=== PATIENT | male | born 1945 | race Caucasian/White ===

== ENCOUNTER 2017-12-20 13:12 | Outpatient (CLI) ==
--- NOTE | 2017-12-20 14:07 | US ---
EXAM: Ultrasound bilateral carotid duplex. HISTORY: Dizziness. COMPARISON: 03/20/2010. TECHNIQUE: Multiple welsh scale and color Doppler images were obtained. FINDINGS: Please note that estimates of internal carotid artery stenoses are based upon NASCET crite marie. Right carotid: Calcified plaquing without 50% or greater stenosis. Peak systolic velocity measureme nt in the right internal carotid artery is 1.1 meters per second. Right internal to common carotid a rtery peak systolic velocity ratio measures 1.2. End diastolic velocity measurement in the right int ernal carotid artery is 0.3 meters per second. Flow in the right vertebral artery is antegrade. Left carotid: Calcified plaquing without 50% or greater stenosis. Peak systolic velocity measuremen t in the left internal carotid artery is 1.0 meters per second. Left internal to common carotid danica ry peak systolic velocity ratio measures 1.1. End diastolic velocity measurement in the left interna l carotid artery measures 0.2 meters per second. Flow in the left vertebral artery is antegrade. IMPRESSION: 1. No evidence for 50% or greater stenosis in the right or left internal carotid artery. 2. Antegrade flow in both vertebral arteries.
--- NOTE | 2017-12-20 14:15 | CT ---
EXAM: CT head without contrast. HISTORY: Dizziness. COMPARISON: None available. TECHNIQUE: Multiple axial images of the brain were obtained from the skull base through the vertex w ithout intravenous contrast. Multiplanar reformats were provided. FINDINGS: There is no intracranial hemorrhage or extraaxial collection. The welsh-white differentiat ion is maintained without evidence for acute large vascular territory infarction. There are areas of periventricular and subcortical white matter low attenuation. The cortical sulci and cerebral ventr icles are symmetrically enlarged. The basal cisterns are well visualized. There is no hydrocephalus , mass effect, or midline shift. Polyp or retention cyst noted in the right maxillary sinus. Some l obular mucosal thickening in the inferior left maxillary sinus is incompletely imaged. Otherwise, th e paranasal sinuses and mastoid air cells are clear. The calvarium is intact. There is a small meta llic foreign object in the soft tissues of the forehead on axial image 7. Atherosclerotic calcificati ons noted. IMPRESSION: 1. No acute intracranial abnormality. 2. Chronic small vessel ischemic changes and atrophy.
== END 2017-12-20 13:13 | disposition home or self-care (01) ==
LOC: RAD 13:12
PROVIDERS: ATTEND Internal Medicine
DX: R42 Dizziness and giddiness (principal)

== ENCOUNTER 2018-10-28 08:47 | Outpatient (CLI) ==
--- NOTE | 2018-10-28 15:32 | DI ---
EXAM: Chest two views HISTORY: Cough, sarcoma COMPARISON: 01/10/2009 TECHNIQUE: Two views of the chest were performed FINDINGS: No airspace consolidation. Small nodular opacity right lung base measures 7 mm. Suture l ine left lower lung. There is no pleural effusion or pneumothorax. The heart is normal in size. Th e mediastinal contour is unchanged, noting atherosclerosis. There are no acute abnormalities of the bones. IMPRESSION: 1. No acute cardiopulmonary process. 2. Unexpected finding: Small nodular opacity right lung base measures 7 mm. This could represent a pulmonary nodule or possibly a nipple shadow. Recommend correlation with CT or chest PA and lateral chest radiographs with nipple markers.
== END 2018-10-28 08:48 | disposition home or self-care (01) ==
LOC: CAR 08:47
PROVIDERS: ATTEND Internal Medicine
DX: R05 Cough (principal); R06.02 Shortness of breath; Z85.9 Personal history of malignant neoplasm, unspecified

== ENCOUNTER 2018-11-07 07:41 | Outpatient (CLI) ==
--- NOTE | 2018-11-07 08:40 | CT ---
EXAM: CT chest with contrast HISTORY: Abnormal chest radiograph COMPARISON: Radiograph chest 10/28/2018 TECHNIQUE: CT chest performed with intravenous contrast. Coronal and sagittal reformatted images ob tained. FINDINGS: The thyroid and thoracic inlet appear normal. Heart normal in size. No pericardial effus ion. Coronary calcifications. Aorta normal in caliber. Mild atherosclerosis. Small to moderate hi atal hernia. No lymphadenopathy identified in the chest. Visualized portion upper abdomen demonstra gerri no and the acute abnormality. No acute abnormalities of the bones. Degenerative change in the s pine. Central airway. Central airway patent. No airspace consolidation. No pleural effusion. No pneumothorax. Linear scarring in the left upper lobe. Additional scattered subsegmental atelectasis and/or scarring. 6 mm pulmonary nodule right middle lobe image 44. 5 mm perifissural nodule right lung image 36. IMPRESSION: 1. Two right lung nodules measuring up to [address] chest follow-up in 6 months. 2. Mild subsegmental atelectasis and/or scarring. No airspace consolidation. 3. Small to moderate hiatal hernia.
== END 2018-11-07 07:42 | disposition home or self-care (01) ==
LOC: RAD 07:41
PROVIDERS: ATTEND Internal Medicine
DX: R91.8 Other nonspecific abnormal finding of lung field (principal)

== ENCOUNTER 2023-01-05 21:45 | Inpatient (IN) ==
[~2023-01-05 21:45] MED LIST: LEVAQUIN 750 MG/150 ML D5W 750 MG/150 ML BAG IV SCH
--- NOTE | 2023-01-05 22:07 | ED.PDOC ---
General ED Provider: Dr. CHRISTIN BARR MD Chief Complaint: Weakness Stated Complaint: states that patient's been weak the past 4 days associated with fever and chills progressive generalized weakness, diagnosed with a urinary tract infection primary care provider as outpatient stay. Patient denies cough, dyspnea, chest pain, abdominal pain, nausea, vomiting, diarrhea. states that patient had very poor oral intake the past 48 hours. Spouse states that patient's had fever throughout the day. Time Seen by Provider: 01/05/23 22:03 Mode of Arrival: Ambulance Information Source: Patient Exam Limitations: Clinical condition Primary Care Provider: JOSE ANGEL FRANZ MD Nursing and Triage Documentation Reviewed and Agree: Yes Does patient meet sepsis criteria?: Yes If yes, has appropriate treatment been initiated?: Yes System Inflammatory Response Syndrome: Temp 101F or Greater and Pulse >90 BPM Sepsis Protocol: For patient's 13 years and over: Temp is 96.8 and below OR 101 and greater Pulse >90 BPM Resp >20/minute Acutely Altered Mental Status Are patient's symptoms suggestive of a new infection, such as: -Pneumonia -Skin, Soft Tissue -Endocarditis -UTI -Bone, Joint Infection -Implantable Device -Acute Abdominal Infection -Wound Infection -Meningitis -Blood Stream Catheter Infection -Unknown Neurological Complaint Exam Weakness Complaint/Exam Last Known Well: 4 days ago Onset: Gradual Duration: gradually patient became weak and lethargic treated for yesterday for UTI Symptoms Are: Still present Timing: Constant Episodes Lasting: Days Initial Severity: Moderate Current Severity: Moderate Cardiac Risk Factors: Reports None CVA Risk Factors: Reports None Related Surgical History: Reports None JVD Present: No Carotid Bruit Present: No Rectal Heme Positive: No Review of Systems Review Of Systems Constitutional: Reports Chills, Fever, Malaise and Weakness Eyes: Reports No symptoms Ears, Nose, Mouth, Throat: Reports No symptoms Cardiac: Reports No symptoms GI: Reports No symptoms : Reports No symptoms Musculoskeletal: Reports No symptoms Skin: Reports No symptoms Neurological: Reports Weakness (Generalized weakness) Endocrine: Reports No symptoms Hematologic/Lymphatic: Reports No symptoms All Other Systems: Reviewed and Negative [facility]LY [facility] Medical History Metastatic lung carcinoma C78.00 - Secondary malignant neoplasm of unspecified lung (ICD-10) 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, unspecified (ICD- 10) Status post fall Z91.81 - History of falling (ICD-10) Family History FATHER Cardiac abnormality Mother Cancer Social History Smoking and tobacco status: Former smoker Tobacco: How many years used: 45 Second hand smoke exposure: No Alcohol intake: never Substance use type: does not use Special russ needs: No Agree to transfusion: Yes Adopted: No Caregiver/support person: No Foster care: No Household members: spouse Housing: house Marital status: M Lives independently: Yes Daycare: no daycare Number of children: 2 service: Yes status: retired branch: [employer] half-way: No Current occupational status: retired Pets and animals: No History of recent travel: No Sexually active: No Do you think of yourself as: straight/heterosexual Current gender identity: male Seatbelt use: always Helmet use: Yes Drives intoxicated or rides with intoxicated motor vehicle escort driver: No Water heater temperature set < 120 degrees: Yes Working smoke detector in home: Yes Fire extinguisher in home: Yes Carbon monoxide detector in home: Yes Firearms in home: No Surgical History H/O cataract removal with insertion of prosthetic lens Z98.49 - Cataract extraction status, unspecified eye (ICD-10) Z96.1 - Presence of intraocular lens (ICD-10) Physical Exam Physical Exam Appearance: Reports Ill-appearing, No pain distress and Thin Ill-appearing: Moderate Pain Distress: Moderate Eyes: Reports KAMARI, EOMI and Conjunctiva clear; Denies Conjunctiva inflammed ENT: Reports Nose normal and TMs Occluded Neck: Supple Respiratory: Reports Airway patent, Breath sounds clear and Breath sounds equal; Denies Breath sounds diminished Cardiovascular: Reports RRR, Pulses normal, No rub and Tachycardia; Denies Irregular rhythm GI/: Reports Nontender, No masses, Bowel sounds normal and No Organomegaly Musculoskeletal: Reports Normal strength, ROM intact, No edema, No calf tenderness, Limited ROM and Limited strength; Denies Edema Skin: Reports Warm and Normal color Neurological: Reports Sensation intact, Motor intact, Reflexes intact and Other (Patient appears lethargic) Psychiatric: Reports Affect appropriate Interpretation Radiology Interpretation Radiology Interpretation By: Radiologist Radiology Results: Positive Exam Interpreted: Portable CXR Xray Comments: Minimal left basilar atelectasis and or pneumonia Project Inspector Time of Project Inspector Interpretation: 22:10 Rate: Normal and Tachy Rhythm: Sinus Ectopy: None EKG Interpretation Time of EKG #1: 02:30 Rate: Normal and Tachy Rhythm: Sinus Ectopy: None [place]: NL ST Segment: Other Interpretation: Sinus tachycardia 101, nonspecific ST changes with changes inferior lateral Re-Evaluation Re-Evaluation Time of Re-Evaluation: 23:55 Status: Improved Vital Signs Stable: Yes Pain Level: Patient mental status has improved after hydration of 2 L normal saline. Appearance: NAD Neuro: Alert and Oriented X3 CV: RRR Physician Notification Case Discussed Physician Notified: Discussed with Dr. Staci Franz at 0117 for referral to the hospitalist for obs Time of Notification: 01:17 Comments: Discussed patient complaints laboratory data and emergency room course. Physician Notified: Discussed with hospitalist Deborah at 0120 observation Time of Notification: 01:20 Critical Care Note Critical Care Note Total Critical Care Time (mins): 20 Course Course 01/05/23 22:30 01/05/23 22:30 Orders, Labs, Meds: Lab Review 01/05/23 01/05/23 01/05/23 22:30 23:00 23:35 WBC 5.05 RBC 4.41 L Hgb 14.1 Hct 42.2 MCV 95.7 H MCH 32.0 H MCHC 33.4 RDW Coeff of Mague 12.9 Plt Count 191 Immature Gran % (Auto) 0.2 Neut % (Auto) 90.3 H Lymph % (Auto) 5.7 L Travis % (Auto) 3.6 Eos % (Auto) 0.2 Baso % (Auto) 0.0 Neut # (Auto) 4.6 Lymph # (Auto) 0.3 L Travis # (Auto) 0.2 L Eos # (Auto) 0.0 Baso # (Auto) 0.0 Immature Gran # (Auto) 0.0 PT 10.1 INR 0.97 APTT 28.5 Puncture Site Base Excess O2 Saturation ABG pH ABG pCO2 ABG pO2 ABG HCO3 ABG Total CO2 Olman Test Hemoglobin Oxyhemoglobin Carboxyhemoglobin Total Hemoglobin FiO2 % Sodium 135.9 Potassium 3.37 L Chloride 102.4 Carbon Dioxide 24.8 Anion Gap 12.07 BUN 22.4 H Creatinine 1.66 H Estimated GFR (MDRD) 40.00 BUN/Creatinine Ratio 13.49 Glucose 121.2 H Lactic Acid 0.97 Calcium 8.56 Magnesium 2.09 Total Bilirubin 0.50 AST 51.7 ALT 34.4 Alkaline Phosphatase 92.1 Troponin I < 0.012 Total Protein 7.64 Albumin 4.47 Globulin 3.17 Albumin/Globulin Ratio 1.41 Amylase 57.4 Lipase 77.0 Urine Color Yellow Urine Clarity Clear Urine pH 6.0 Ur Specific [place] 1.025 Urine Protein 2+ H Urine Glucose (UA) 1+ H Urine Ketones Negative Urine Blood 3+ H Urine Nitrite Negative Urine Bilirubin Negative Urine Urobilinogen 0.2 Ur Leukocyte Esterase Negative Urine Microscopic RBC 2-5 Ur Squamous Epith Cells Not Reportable Urine Bacteria 1+ Granular Casts 2-5 Influ A Molecular Assay Influ B Molecular Assay SARS CoV-2 RNA Rapid ARVIND 01/06/23 01/06/23 00:18 00:35 WBC RBC Hgb Hct MCV MCH MCHC RDW Coeff of Mague Plt Count Immature Gran % (Auto) Neut % (Auto) Lymph % (Auto) Travis % (Auto) Eos % (Auto) Baso % (Auto) Neut # (Auto) Lymph # (Auto) Travis # (Auto) Eos # (Auto) Baso # (Auto) Immature Gran # (Auto) PT INR APTT Puncture Site Pos Base Excess -2.5 L O2 Saturation 94.8 ABG pH 7.45 ABG pCO2 31.0 L ABG pO2 71.0 L ABG HCO3 21.5 ABG Total CO2 22.5 Olman Test Good Hemoglobin 1.6 H Oxyhemoglobin 93.9 L Carboxyhemoglobin 1.3 Total Hemoglobin 12.6 FiO2 % 21.0 Sodium Potassium Chloride Carbon Dioxide Anion Gap BUN Creatinine Estimated GFR (MDRD) BUN/Creatinine Ratio Glucose Lactic Acid Calcium Magnesium Total Bilirubin AST ALT Alkaline Phosphatase Troponin I Total Protein Albumin Globulin Albumin/Globulin Ratio Amylase Lipase Urine Color Urine Clarity Urine pH Ur Specific [place] Urine Protein Urine Glucose (UA) Urine Ketones Urine Blood Urine Nitrite Urine Bilirubin Urine Urobilinogen Ur Leukocyte Esterase Urine Microscopic RBC Ur Squamous Epith Cells Urine Bacteria Granular Casts Influ A Molecular Assay Negative by naat Influ B Molecular Assay Negative by naat SARS CoV-2 RNA Rapid ARVIND Negative Orders Category Date Time Status ABG DRAW REQUEST Stat CARDIO 01/05/23 22:07 Completed IV [ED IV/MEDIPORT/POWERPORT] .ONCE EMERGENCY 01/05/23 22:09 Active ABG COOX Stat LAB 01/05/23 22:06 Completed AMYLASE Stat LAB 01/05/23 22:30 Completed BLOOD CULTURE (ED ONLY) Stat LAB 01/05/23 22:50 Received CBC W/ AUTO DIFF Stat LAB 01/05/23 22:30 Completed CMP [COMPREHENSIVE METABOLIC PANEL] Stat LAB 01/05/23 22:30 Completed COVID [SARS COV-2 RNA RAPID ARVIND] Stat LAB 01/06/23 00:35 Completed FLU A & B MOLECULAR [FLU A/B MOLECULAR] Stat LAB 01/06/23 00:35 Completed LACTIC ACID Stat LAB 01/05/23 23:35 Completed LIPASE Stat LAB 01/05/23 22:30 Completed MAGNESIUM Stat LAB 01/05/23 22:30 Completed PT WITH INR Stat LAB 01/05/23 22:30 Completed PTT [PARTIAL THROMBOPLASTIN TIME] Stat LAB 01/05/23 22:30 Completed TROPONIN I Stat LAB 01/05/23 22:30 Completed URINALYSIS C & S IF INDICATED Stat LAB 01/05/23 23:00 Completed URINE CULTURE Stat LAB 01/05/23 23:00 Received 0.9 % Sodium Chloride [Saline Flush] Meds 01/05/23 22:09 Active 1 syr IVF PRN PRN Ibuprofen [Motrin] Meds 01/05/23 22:06 Discontinued 600 mg PO ONCE STA Levofloxacin/D5w [Levaquin 500 mg/100 ml D5w] Meds 01/05/23 23:15 Discontinued 500 mg in 100 ml IV ONCE Sodium Chloride 0.9% [Sodium Chloride] 1,000 ml Meds 01/05/23 22:09 Discontinued IV BOLUS Sodium Chloride 0.9% [Sodium Chloride] 1,000 ml Meds 01/05/23 23:19 D iscontinued IV BOLUS CHEST, 1V AP ONLY Stat RADS 01/05/23 22:[address] HEAD W/O CONTRAST Stat RADS 01/05/23 22:06 Completed Medications Generic Name Dose Route Start Last Admin Trade Name Freq PRN Reason Stop Dose Admin Sodium Chloride 1 syr 01/05/23 22:09 0.9% Sodium Chloride 10 Ml Disp.Syrin IVF PRN PRN To flush IV Discontinued Medications Generic Name Dose Route Start Last Admin Trade Name Freq PRN Reason Stop Dose Admin Sodium Chloride 1,000 mls @ 1,000 mls/hr 01/05/23 22:09 01/05/23 22:27 Sodium Chloride IV 01/05/23 23:08 1,000 mls/hr BOLUS STA Administration Levofloxacin/Dextrose 500 mg in 100 mls @ 100 mls/hr 01/05/23 23:15 01/05/23 23:18 Levaquin 500 Mg/100 Ml D5w IV 01/06/23 00:14 100 mls/hr ONCE ONE Administration Sodium Chloride 1,000 mls @ 1,000 mls/hr 01/05/23 23:19 01/05/23 23:21 Sodium Chloride IV 01/06/23 00:18 1,000 mls/hr BOLUS STA Administration Ibuprofen 600 mg 01/05/23 22:06 01/05/23 22:28 Ibuprofen 600 Mg Tablet PO 01/05/23 22:07 600 mg ONCE STA Administration Vital Signs: Temp Pulse Resp BP Pulse Ox 01/06/23 00:51 91 18 142/78 H 95 01/05/23 23:26 100.6 F H 106 H 16 105/69 94 L 01/05/23 21:48 100.7 F H 119 H 19 144/98 H 95 Discharge Plan Discharge Patient Disposition: PLACED OBSERVATION Discharge Problem: Acute dehydration, Pneumonia Did you review [place] [employer] DEVELOPER for ALL controlled substances?: Not Applicable ED Provider: CHRISTIN BARR Condition: Stable Physician Progress Note: MDM History obtained from the spouse and the patient. states that patient's been weak the past 4 days associated with fever and chills progressive generalized weakness, diagnosed with a urinary tract infection primary care provider as outpatient stay. Patient denies cough, dyspnea, chest pain, abdominal pain, nausea, vomiting, diarrhea. Patient placed on sepsis protocol IV fluids 84 kilogram /30 mL normal saline liter bolus every hour x2 of the 2 sets of blood cultures Levaquin 5 mg IV piggyback. All laboratory data reviewed and are within normal limits CBC white blood count of 5000, hemoglobin 14.1, BMP is normal limits, GFR 40, lipase 77 amylase 57, troponin is 0.012. Lactic acid 0.97 the arterial blood gas on room air for normal limits pH 7.45 saturation 94% Patient taken off the sepsis protocol after 2 L of IV fluids. Patient became much more alert after IV hydration. Portable chest x-ray is consistent with minimal left basilar atelectasis and or pneumonia. Head CT scan without intravenous contrast [FINDINGS: Helically acquired axial images were obtained from skull base to the convexities without contrast utilizing 5-mm collimation. Sagittal and coronal reconstructions were imaged and reviewed. The ventricles and CSF spaces are prominent compatible with age appropriate atrophy. There is periventricular hypodensity noted, compatible chronic microvascular disease. No acute intracranial findings . There is a small retention cyst right maxillary sinus. Mastoid air cells are clear. The calvarium is intact. Atherosclerotic changes are seen involving cavernous internal carotid arteries. IMPRESSION: No acute intracranial finding Differential diagnosis 1) pneumonia 2) dehydration Discussed with Dr. Staci Franz at 0117 referral to the hospitalist for observation Discussed with hospitalist Deborah at 0124 observation
[2023-01-05] MEDS ORDERED: SODIUM CHLORIDE 1,000 ML IV STA ×2 (22:09→23:19)
[2023-01-05] MEDS: MOTRIN PO STA ×2 (22:24→22:28)
[2023-01-05 22:40] LABS: EOSINOPHILS % (AUTO) 0.2 % (0.0-7.0); HEMATOCRIT 42.2 % (42.0-52.0); HEMOGLOBIN 14.1 g/dl (14.0-18.0); IMMATURE GRANULOCYTE % (AUTO) 0.2 % (0.0-5.0); LYMPHOCYTES # (AUTO) 0.3 K/uL (0.60-3.4); LYMPHOCYTES % (AUTO) 5.7 (10.0-50.0); MEAN CORPUSCULAR HGB CONC 33.4 (31.8-35.4); MEAN CORPUSCULAR VOLUME 95.7 fl (80.0-94.0); MONOCYTES # (AUTO) 0.2 K/uL (0.4-2.0); MONOCYTES % (AUTO) 3.6 (0-10); NEUTROPHILS # (AUTO) 4.6 K/ul (2.0-6.9); NEUTROPHILS % (AUTO) 90.3 % (42.2-75.2); PLATELET COUNT 191 10^3/uL (140-440); RDW COEFFICIENT OF VARIATION 12.9 % (11.6-14.8); RED BLOOD COUNT 4.41 10^6/ul (4.70-6.10); WHITE BLOOD COUNT 5.05 K/ul (4.2-10.2)
[2023-01-05 22:51] LABS: ALANINE AMINOTRANSFERASE 34.4 U/L (0-50); ALBUMIN 4.47 g/dL (3.5-5.0); ALKALINE PHOSPHATASE 92.1 U/L (56-119); AMYLASE 57.4 U/L (30-110); ASPARTATE AMINO TRANSFERASE 51.7 U/L (17-59); BLOOD UREA NITROGEN 22.4 mg/dL (9-20); CALCIUM 8.56 mg/dL (8.4-10.2); CARBON DIOXIDE 24.8 mmol/L (22-30.0); CHLORIDE 102.4 mmol/L (98-107); CREATININE 1.66 mg/dL (0.60-1.10); GLUCOSE 121.2 mg/dL (74-106); MAGNESIUM 2.09 mg/dL (1.6-2.3); POTASSIUM 3.37 mmol/L (3.5-5.1); SODIUM 135.9 mmol/L (134.5-145); TOTAL PROTEIN 7.64 g/dL (6.3-8.2)
--- NOTE | 2023-01-05 23:00 | CT ---
THE EXAM: CT SCAN BRAIN WITHOUT CONTRAST HISTORY: Weakness. COMPARISON: CT scan brain 08/28 21 FINDINGS: Helically acquired axial images were obtained from skull base to the convexities without c ontrast utilizing 5-mm collimation. Sagittal and coronal reconstructions were imaged and reviewed. The ventricles and CSF spaces are prominent compatible with age appropriate atrophy. There is perive ntricular hypodensity noted, compatible chronic microvascular disease. No acute intracranial finding s . There is a small retention cyst right maxillary sinus. Mastoid air cells are clear. The calvar ium is intact. Atherosclerotic changes are seen involving cavernous internal carotid arteries. IMPRESSION: No acute intracranial findings All CT scans are performed using dose optimization techniques as appropriate to the performed exam an d include at least one of the following: Automated exposure control, adjustment of the mA and/or kV according t o size, and the use of iterative reconstruction technique.
--- NOTE | 2023-01-05 23:00 | DI ---
EXAM: AP CHEST. HISTORY: Cough. Findings called. The bones are unremarkable. The cardiac silhouette and pulmonary vasculature are w ithin normal limits. There is minimal left basilar atelectasis and/or pneumonia. Impression: Minimal left basilar atelectasis and/or pneumonia.
[2023-01-05 23:02] LABS: PARTIAL THROMBOPLASTIN TIME 28.5 SEC (23.9-40.0); PROTHROMBIN TIME 10.1 SEC (9.3-11.0)
[2023-01-05 23:03] LABS: TROPONIN I < 0.012 ng/ml (0.0000-0.120)
[2023-01-05 23:10] LABS: BILIRUBIN,URINE Negative (NEGATIVE); CLARITY,URINE Clear (CLEAR); COLOR,URINE Yellow (YELLOW); GLUCOSE, URINE (UA) 1+ (NEGATIVE); KETONES,URINE Negative (NEGATIVE); LEUKOCYTE ESTERASE ,URINE Negative (NEGATIVE); NITRITE,URINE Negative (NEGATIVE); PROTEIN,URINE 2+ (NEGATIVE); URINE, BLOOD 3+ (NEGATIVE); UROBILINOGEN,URINE 0.2 (0.2)
[2023-01-05] MEDS ORDERED: LEVAQUIN 500 MG/100 ML D5W 500 MG/100 ML BAG IV ONE (23:15)
[2023-01-05 23:19] LABS: BACTERIA,URINE 1+ (NOT PRESENT)
[2023-01-06 00:57] LABS: MOLECULAR FLU A NEGATIVE BY NAAT (NEGATIVE); MOLECULAR FLU B NEGATIVE BY NAAT (NEGATIVE)
[2023-01-06 01:01] LABS: ABG PH 7.45 (7.35-7.45); BEecf -2.5 (-2.0-3.0)
[2023-01-06 01:02] LABS: COHb 1.3 (0.5-1.5); HCO3 21.5 (21-28); MetHb 1.6 (0-1.5); TCO2 22.5 (19-24); sO2 94.8 % (94-98); tHb 12.6 g/dl (11.7-17.4)
[2023-01-06 01:03] LABS: ABG O2 HGB 93.9 % (95-100)
[2023-01-06 01:35] LABS: SARS COV-2 RNA RAPID NAAT NEGATIVE (NEGATIVE)
[2023-01-06] MEDS ORDERED: NORCO 5-325 PO PRN (01:55)
[2023-01-06] MEDS: SODIUM CHLORIDE 500 ML IV SCH (02:43)
[2023-01-06] MEDS ORDERED: LEVAQUIN 250 MG/50 ML D5W 250 MG/50 ML BAG IV ONE (03:00)
[2023-01-06 03:58] VITALS: BMI 26.6
[2023-01-06] MEDS ORDERED: PROTONIX PO SCH ×2 (06:30→11:00)
[2023-01-06 06:53] LABS: BASOPHILS % (AUTO) 0.2 % (0.0-3.0); HEMATOCRIT 35.8 % (42.0-52.0); HEMOGLOBIN 12.3 g/dl (14.0-18.0); IMMATURE GRANULOCYTE % (AUTO) 0.2 % (0.0-5.0); LYMPHOCYTES # (AUTO) 0.2 K/uL (0.60-3.4); LYMPHOCYTES % (AUTO) 4.7 (10.0-50.0); MEAN CORPUSCULAR HGB CONC 34.4 (31.8-35.4); MEAN CORPUSCULAR VOLUME 93.2 fl (80.0-94.0); MONOCYTES # (AUTO) 0.1 K/uL (0.4-2.0); NEUTROPHILS # (AUTO) 4.1 K/ul (2.0-6.9); NEUTROPHILS % (AUTO) 92.9 % (42.2-75.2); PLATELET COUNT 143 10^3/uL (140-440); RDW COEFFICIENT OF VARIATION 12.9 % (11.6-14.8); RED BLOOD COUNT 3.84 10^6/ul (4.70-6.10); WHITE BLOOD COUNT 4.44 K/ul (4.2-10.2)
[2023-01-06 07:02] LABS: ALANINE AMINOTRANSFERASE 38.8 U/L (0-50); ALBUMIN 3.61 g/dL (3.5-5.0); ALKALINE PHOSPHATASE 71.9 U/L (56-119); ASPARTATE AMINO TRANSFERASE 58.3 U/L (17-59); BILIRUBIN,TOTAL 0.52 mg/dL (0.2-1.3); BLOOD UREA NITROGEN 22.6 mg/dL (9-20); CALCIUM 7.7 mg/dL (8.4-10.2); CARBON DIOXIDE 25.3 mmol/L (22-30.0); CHLORIDE 106.8 mmol/L (98-107); CREATININE 1.46 mg/dL (0.60-1.10); GLUCOSE 111.6 mg/dL (74-106); POTASSIUM 3.4 mmol/L (3.5-5.1); SODIUM 137.8 mmol/L (134.5-145); TOTAL PROTEIN 6.34 g/dL (6.3-8.2)
[2023-01-06] MEDS ORDERED: LEVAQUIN 500 MG/100 ML D5W 500 MG/100 ML BAG IV SCH (09:00)
--- NOTE | 2023-01-06 09:16 | CT ---
EXAM: CT SCAN OF THE ABDOMEN AND PELVIS WITH CONTRAST HISTORY: cancer TECHNIQUE: Helical imaging of the abdomen pelvis was performed following the intravenous administrat ion of contrast. 2.5 mm thin axial images and coronal and sagittal reconstructions were obtained. Comparison 08/28/2021. FINDINGS: No acute abnormalities are seen within the liver, spleen, pancreas. The proximal ureters are normal size. The small and large bowel loops are normal caliber. No retroperitoneal abnormaliti es are seen. No acute abnormalities are seen within the adrenal glands. No acute abnormalities are seen within the gallbladder. There is no free fluid seen within the pelvis. Diverticula are seen within the sigmoid colon without acute inflammation. There is a small to moderate size hiatal hernia. There is mild enlargement of the prostate gland. Lung bases are clear. No lytic or blastic lesions are seen within the osseous s tructures. IMPRESSION: There is no bowel obstruction or acute inflammatory change seen within the abdomen and p christian. There is no ureteral obstruction. 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 All CT scans are performed using dose optimization techniques as appropriate to the performed exam an d include at least one of the following: Automated exposure control, adjustment of the mA and/or kV according t o size, and the use of iterative reconstruction technique.
--- NOTE | 2023-01-06 09:29 | CT ---
EXAM: CHEST CTA WITH CONTRAST (PULMONARY ARTERY) HISTORY: Short of breath TECHNIQUE: CTA acquisition of the chest from the thoracic inlet to the upper abdomen following IV con trast administration timed to filling of the pulmonary artery. IV Contrast: Administered. 3D/MIP/VR images were utilized. CT Dose Reduction Techniques Employed: Yes COMPARISON: 08/28/2021 CT chest FINDINGS: Lines, Tubes, Devices: None. Pulmonary Embolism: - Diagnostic quality: Adequate. - Central(Main/Lobar/Interlobar): No embolus. - Peripheral (Segmental/Subsegmental): No embolus. - Right ventricle/Left ventricle ratio (normal <0.9): Normal. Lung Parenchyma and Airways: Central airways are patent without endobronchial lesion. No focal consolidation. Stable linear scarring changes in the left upper and left lower lobe as well as the right lower lobe. Stable 0.4 cm right lower lobe fissural nodule. Stable 0.5 cm right middle lobe nodule. Pleural Space: No pleural effusion. No pleural thickening. No pneumothorax. Thoracic Inlet, Mediastinum, and [place]: Thyroid gland is normal. No lymphadenopathy. Moderate hiatal hernia. Heart, Vessels, and Pericardium: -Ascending aorta is normal in caliber with mild atherosclerotic calcifications. -Main pulmonary artery is normal in caliber. -Heart chambers are not enlarged. -No significant valvular calcifications. -Mild coronary artery calcifications, however exam is not optimized for evaluation. -No pericardial effusion or thickening. Bones and Soft Tissues: Visualized bones are within normal limits. Chest wall soft tissues are withi n normal limits. Upper Abdomen: See CT abdomen pelvis report from the same day. IMPRESSION: No pulmonary embolism. No acute intrathoracic process. No pneumonia. Stable bilateral linear scarring changes. Stable right lung nodules. All CT scans are performed using dose optimization techniques as appropriate to the performed exam an d include at least one of the following: Automated exposure control, adjustment of the mA and/or kV according t o size, and the use of iterative reconstruction technique.
[2023-01-06] MEDS ORDERED: NORCO 10-325 PO PRN (10:30)
[2023-01-06] MEDS ORDERED: XANAX PO PRN (10:30)
[2023-01-06] MEDS ORDERED: K-DUR PO ONE (10:52)
--- NOTE | 2023-01-06 10:53 | PCM ---
Date of Service Date Seen by Provider: 01/06/23 Time Seen by Provider: 09:15 Admit Day/Time Admission Date: 01/06/23 Admission Time: 01:55 Reason for Admission Chief Complaint: PNEUMONIA,DEHYDRATION Hospital Provider Hospital Provider: REBECCA HORN PA-C, [facility] [place] Primary Care Physician Primary Care Physician: JOSE ANGEL FRANZ MD History of Present Illness History of Present Illness: Patient is a 77-year-old male from home with past medical history of sarcoma, hx of lung cancer, COPD, BPH, diabetes, chronic kidney disease, anemia, GERD, vitamin B12 deficiency, degenerative joint disease who presented with generalized weakness, altered mental status, and fever over last few days. He states that he started feeling bad a little over a week ago. He was having some urinary frequency. Denies burning with urination. He saw his primary care provider on Saturday who prescribed him Levaquin for possible urinary tract infection. He continued to get more weak and just overall not feel well. He has been also been running a fever and having chills. In the ER he was noted to have a temp of 100.7 and his heart rate was elevated at 119. He met sepsis criteria and was given Levaquin and 2 L of fluids. Head CT was negative. Chest x-ray showed minimal atelectasis versus pneumonia of left lower lung. Labs indicated dehydration with an elevated creatinine and BUN. White blood cell count was normal. Urinalysis negative for infection but was positive for blood. He was admitted to SCU. This morning patient states he is feeling better. He is alert and oriented. He states that his urinary issues have improved somewhat. He denies any changes in his bowels or blood in his stool. No chest pain shortness of breath cough or abdominal pain. 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 He underwent chemo and radiation. He had a port at that time but no longer has a port. He complains of chronic back pain for which he saw his PCP and had imaging done recently in December. Labs improved today but procal is elevated at 2. Case Discussed With Case Discussed With: Patient's case was discussed with the ER Physicians, Dr. John. 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, unspecified (ICD- 10) Status post fall Z91.81 - History of falling (ICD-10) Surgical History H/O cataract removal with insertion of prosthetic lens Z98.49 - Cataract extraction status, unspecified eye (ICD-10) Z96.1 - Presence of intraocular lens (ICD-10) Family History FATHER Cardiac abnormality Mother Cancer Social History Smoking and tobacco status: Former smoker Tobacco: How many years used: 45 Second hand smoke exposure: No Alcohol intake: never Substance use type: does not use Special russ needs: No Agree to transfusion: Yes Adopted: No Caregiver/support person: No Foster care: No Household members: spouse Housing: house Marital status: M Lives independently: Yes Daycare: no daycare Number of children: 2 service: Yes status: retired branch: [employer]: No Current occupational status: retired Pets and animals: No History of recent travel: No Sexually active: No Do you think of yourself as: straight/heterosexual Current gender identity: male Seatbelt use: always Helmet use: Yes Drives intoxicated or rides with intoxicated hog driver: No Water heater temperature set < 120 degrees: Yes Working smoke detector in home: Yes Fire extinguisher in home: Yes Carbon monoxide detector in home: Yes Firearms in home: No Allergies Allergies Allergy/AdvReac Type Severity Reaction Status Date / Time doxycycline AdvReac Rash Verified 01/05/23 21:57 Current Medications Home Medications aspirin 325 mg tablet,delayed release 1 tab PO DAILY 05/25/14 [History Confirmed 01/05/23 Last Taken 05/20/14] atorvastatin 40 mg tablet (Lipitor) 1 tab PO DAILY 05/25/14 [History Confirmed 01/05/23 Last Taken 05/23/14] pantoprazole 40 mg tablet,delayed release (Protonix) 1 tab PO BID 05/25/14 [History Confirmed 01/05/23 Last Taken 05/23/14] memantine 28 mg capsule sprinkle,extended release 24hr See Rx Instructions .Route .COMPLEX #90 caps 09/13/22 [Rx Confirmed 01/05/23 Last Taken Unknown] montelukast 10 mg tablet See Rx Instructions .Route .COMPLEX #90 tabs 10/29/22 [Rx Confirmed 01/05/23 Last Taken Unknown] tamsulosin 0.4 mg capsule See Rx Instructions .Route .COMPLEX #90 caps 12/10/22 [Rx Confirmed 01/05/23 Last Taken Unknown] alprazolam 0.5 mg tablet (Xanax) 0.5 mg PO TID PRN Anxiety #90 tabs 12/27/22 [Rx Confirmed 01/05/23 Last Taken Unknown] hydrocodone 10 mg-acetaminophen 325 mg tablet 1 tab PO QID PRN pain #120 tabs 12/27/22 [Rx Confirmed 01/05/23 Last Taken Unknown] gabapentin 600 mg tablet 600 mg PO TID #90 tabs 01/04/23 [Rx Confirmed 01/05/23 Last Taken Unknown] levofloxacin 500 mg tablet 500 mg PO Q24H 10 days #10 tabs 01/04/23 [Rx Confirmed 01/05/23 Last Taken Unknown] folic acid 1 mg tablet 1 mg PO DAILY 01/05/23 [History Confirmed 01/05/23 Last Taken Unknown] Home Acetaminophen (Acetaminophen 325 Mg Tablet) 650 mg PO Q4H PRN PRN Reason: Fever >101 Hydrocodone Bitart/Acetaminophen (Hydrocodone Bit/Acetaminophen 10/325 Mg Tablet) 1 tab PO QID PRN PRN Reason: MODERATE PAIN Last Admin: 01/06/23 11:50 Dose: 1 tab Alprazolam (Alprazolam 0.5 Mg Tablet) 0.5 mg PO TID PRN PRN Reason: Anxiety Last Admin: 01/06/23 11:44 Dose: 0.5 mg Aspirin (Aspirin 325 Mg Tablet.) 325 mg PO DAILYWM [facility] Last Admin: 01/06/23 11:44 Dose: 325 mg Atorvastatin Calcium (Atorvastatin Calcium 20 Mg Tablet) 40 mg PO DAILY [facility] Last Admin: 01/06/23 11:45 Dose: 40 mg Gabapentin (Gabapentin 300 Mg Capsule) 600 mg PO TID [facility] Last Admin: 01/06/23 11:45 Dose: 600 mg Sodium Chloride (Sodium Chloride) 500 mls @ 75 mls/hr IV .Q6H40M [facility] Last Admin: 01/06/23 02:43 Dose: 75 mls/hr Levofloxacin/Dextrose (Levaquin 750 Mg/150 Ml D5w) 750 mg in 150 mls @ 100 mls/hr IV Q48H [facility] Stop: 01/10/23 20:59 Memantine (Memantine Hcl 10 Mg Tablet) 10 mg PO BID [facility] Last Admin: 01/06/23 11:44 Dose: 10 mg Pantoprazole Sodium (Pantoprazole Sodium 40 Mg Tablet.Dr) 40 mg PO BIDAC [facility] Sodium Chloride (0.9% Sodium Chloride 10 Ml Disp.Syrin) 1 syr IVF PRN PRN PRN Reason: To flush IV Tamsulosin HCl (Tamsulosin Hcl 0.4 Mg Cap.Er.24h) 0.4 mg PO DAILY [facility] Last Admin: 01/06/23 11:44 Dose: 0.4 mg Discontinued Medications Hydrocodone Bitart/Acetaminophen (Hydrocodone Bit/Acetaminophen 5/325 Mg Tablet) 1 tab PO Q6HR PRN PRN Reason: Pain Last Admin: 01/06/23 09:08 Dose: 1 tab Sodium Chloride (Sodium Chloride) 1,000 mls @ 1,000 mls/hr IV BOLUS STA Stop: 01/05/23 23:08 Last Admin: 01/05/23 22:27 Dose: 1,000 mls/hr Levofloxacin/Dextrose (Levaquin 500 Mg/100 Ml D5w) 500 mg in 100 mls @ 100 mls/hr IV ONCE ONE Stop: 01/06/23 00:14 Last Admin: 01/05/23 23:18 Dose: 100 mls/hr Sodium Chloride (Sodium Chloride) 1,000 mls @ 1,000 mls/hr IV BOLUS STA Stop: 01/06/23 00:18 Last Admin: 01/05/23 23:21 Dose: 1,000 mls/hr Levofloxacin/Dextrose (Levaquin 500 Mg/100 Ml D5w) 500 mg in 100 mls @ 100 mls/hr IV DAILY [facility] Stop: 01/09/23 08:59 Levofloxacin/Dextrose (Levaquin 250 Mg/50 Ml D5w) 250 mg in 50 mls @ 50 mls/hr IV ONCE ONE Stop: 01/06/23 03:59 Last Admin: 01/06/23 02:46 Dose: 50 mls/hr Levofloxacin/Dextrose (Levaquin 750 Mg/150 Ml D5w) 750 mg in 150 mls @ 100 mls/hr IV Q48H [facility] Stop: 01/11/21 02:59 Ibuprofen (Ibuprofen 600 Mg Tablet) 600 mg PO ONCE STA Stop: 01/05/23 22:07 Last Admin: 01/05/23 22:28 Dose: 600 mg Pantoprazole Sodium (Pantoprazole Sodium 40 Mg Tablet.Dr) 40 mg PO BIDAC [facility] Last Admin: 01/06/23 05:53 Dose: 40 mg Pantoprazole Sodium (Pantoprazole Sodium 40 Mg Tablet.Dr) 40 mg PO BIDAC [facility] Potassium Chloride (Potassium Chloride 20 Meq Tab) 40 meq PO ONCE ONE Stop: 01/06/23 10:53 Last Admin: 01/06/23 11:47 Dose: 40 meq Review of Systems Constitutional: Reports Fever, Fatigue, Chills and Weakness Head: Reports Normocephalic and Atraumatic Eyes: Denies Vision Changes Ears: Denies Pain or Drainage Nose: Denies Post Nasal Drip or Congestion Mouth: Denies Sores Throat: Denies Sore Throat or Difficulty Swallowing Cardiovascular: Denies Chest pain, Chest Pressure or Edema Respiratory: Denies Cough or Shortness of air Gastrointestinal: Denies Nausea, Vomiting, Diarrhea or Abdominal pain Genitourinary: Reports Hematuria and Frequency; Denies Dysuria Musculoskeletal: Reports Back Pain (chronic, unchanged) Dermatologic: Denies Rashes or Skin Changes Neurological: Reports Weakness; Denies Headache, Dizziness, Syncope or Seizure Physical examination Most Recent Vital Signs: Most Recent Vital Signs Temperature 99.2 F 01/06/23 10:00 Temperature Source Temporal Artery Scan 01/06/23 10:00 Temperature Source Oral 01/05/23 23:26 Pulse Rate 99 01/06/23 10:00 Respiratory Rate 16 01/06/23 10:00 Blood Pressure 113/69 01/06/23 10:00 Blood Pressure Mean 83 01/06/23 10:00 Blood Pressure Right Arm 105/66 01/06/23 02:10 Blood Pressure Location Right Arm 01/06/23 10:00 Blood Pressure Position Supine 01/06/23 10:00 O2 Sat by Pulse Oximetry 95 01/06/23 10:00 Oxygen Delivery Method Room Air 01/06/23 10:00 Height 5 ft 9 in 01/06/23 02:10 Weight 180 lb 2 oz 01/06/23 02:10 Telemetry Type Bedside Monitor 01/06/23 07:00 Telemetry Monitoring Continues 01/06/23 07:00 Irregular Telemetry Rate (Approximate) 80-90 BPM 01/06/23 02:18 Telemetry Heart Rate 92 01/06/23 07:00 Telemetry SPO2 98 01/06/23 07:00 EKG HI Interval 0.20 01/06/23 07:00 EKG QRS Interval 0.08 01/06/23 07:00 EKG QT Interval 0.33 01/06/23 02:18 Telemetry Strip Reading SR 01/06/23 07:00 Appearance: Positive Well-appearing, Well-nourished, No Apparent Distress and Alert and Oriented x3 Skin: Positive [place], Warm, Good Turgor, Good Color and Other (Right shoulder - evidence of past radiation, chronic skin changes ); Negative Rashes or Erythema HEENT: Positive Normocephalic and Atraumatic Neck: Positive Supple and Midline Trachea Chest/Lungs: Positive Symmetrical With Equal Breath Sounds and Clear to Auscultation Bilaterally; Negative Rales, Rhonci or Wheezes Heart: Positive RRR GI/: Positive Soft, Nontender, Bowel Sounds Normal and No Distention Musculoskeletal: Negative Tenderness or Decreased ROM Extremities: Positive Intact Peripheral Pulses; Negative Edema Neurological: Positive Cranial Nerves Intact, Alert, Oriented and Muscle Strength 5/5 in Upper and Lower Extremities Bilaterally Psychiatric: Positive Oriented x4, Appropriate Mood, Appropriate Affect, Normal Judgement and Normal Insight Labs This Visit Labs This Visit: Labs This Visit 01/05/23 01/05/23 01/05/23 22:30 23:00 23:35 WBC 5.05 RBC 4.41 L Hgb 14.1 Hct 42.2 MCV 95.7 H MCH 32.0 H MCHC 33.4 RDW Coeff of Mague 12.9 Plt Count 191 Immature Gran % (Auto) 0.2 Neut % (Auto) 90.3 H Lymph % (Auto) 5.7 L [place] % (Auto) 3.6 Eos % (Auto) 0.2 Baso % (Auto) 0.0 Neut # (Auto) 4.6 Lymph # (Auto) 0.3 L [place] # (Auto) 0.2 L Eos # (Auto) 0.0 Baso # (Auto) 0.0 Immature Gran # (Auto) 0.0 PT 10.1 INR 0.97 APTT 28.5 Puncture Site Base Excess O2 Saturation ABG pH ABG pCO2 ABG pO2 ABG HCO3 ABG Total CO2 [place] Test Hemoglobin Oxyhemoglobin Carboxyhemoglobin Total Hemoglobin FiO2 % Sodium 135.9 Potassium 3.37 L Chloride 102.4 Carbon Dioxide 24.8 Anion Gap 12.07 BUN 22.4 H Creatinine 1.66 H Estimated GFR (MDRD) 40.00 BUN/Creatinine Ratio 13.49 Glucose 121.2 H Lactic Acid 0.97 Calcium 8.56 Magnesium 2.09 Total Bilirubin 0.50 AST 51.7 ALT 34.4 Alkaline Phosphatase 92.1 Troponin I < 0.012 Total Protein 7.64 Albumin 4.47 Globulin 3.17 Albumin/Globulin Ratio 1.41 Amylase 57.4 Lipase 77.0 Procalcitonin TSH Urine Color Yellow Urine Clarity Clear Urine pH 6.0 Ur Specific [place] 1.025 Urine Protein 2+ H Urine Glucose (UA) 1+ H Urine Ketones Negative Urine Blood 3+ H Urine Nitrite Negative Urine Bilirubin Negative Urine Urobilinogen 0.2 Ur Leukocyte Esterase Negative Urine Microscopic RBC 2-5 Ur Squamous Epith Cells Not Reportable Urine Bacteria 1+ Granular Casts 2-5 Influ A Molecular Assay Influ B Molecular Assay SARS CoV-2 RNA Rapid ARVIND 01/06/23 01/06/23 01/06/23 00:18 00:35 06:40 WBC 4.44 RBC 3.84 L Hgb 12.3 L Hct 35.8 L D MCV 93.2 MCH 32.0 H MCHC 34.4 RDW Coeff of [place] 12.9 Plt Count 143 Immature Gran % (Auto) 0.2 Neut % (Auto) 92.9 H Lymph % (Auto) 4.7 L [place] % (Auto) 2.0 Eos % (Auto) 0.0 Baso % (Auto) 0.2 Neut # (Auto) 4.1 Lymph # (Auto) 0.2 L [place] # (Auto) 0.1 L Eos # (Auto) 0.0 Baso # (Auto) 0.0 Immature Gran # (Auto) 0.0 PT INR APTT Puncture Site Pos Base Excess -2.5 L O2 Saturation 94.8 ABG pH 7.45 ABG pCO2 31.0 L ABG pO2 71.0 L ABG HCO3 21.5 ABG Total CO2 22.5 [place] Test Good Hemoglobin 1.6 H Oxyhemoglobin 93.9 L Carboxyhemoglobin 1.3 Total Hemoglobin 12.6 FiO2 % 21.0 Sodium 137.8 Potassium 3.40 L Chloride 106.8 Carbon Dioxide 25.3 Anion Gap 9.10 BUN 22.6 H Creatinine 1.46 H Estimated GFR (MDRD) 47.00 BUN/Creatinine Ratio 15.47 Glucose 111.6 H Lactic Acid Calcium 7.70 L Magnesium Total Bilirubin 0.52 AST 58.3 ALT 38.8 Alkaline Phosphatase 71.9 Troponin I Total Protein 6.34 Albumin 3.61 Globulin 2.73 Albumin/Globulin Ratio 1.32 Amylase Lipase Procalcitonin 2.01 H TSH 0.477 Urine Color Urine Clarity Urine pH Ur Specific [place] Urine Protein Urine Glucose (UA) Urine Ketones Urine Blood Urine Nitrite Urine Bilirubin Urine Urobilinogen Ur Leukocyte Esterase Urine Microscopic RBC Ur Squamous Epith Cells Urine Bacteria Granular Casts Influ A Molecular Assay Negative by naat Influ B Molecular Assay Negative by naat SARS CoV-2 RNA Rapid ARVIND Negative Microbiology This Visit 01/05/23 23:00 Urine,Clean Catch Urine Culture - Preliminary Imaging Imaging: EXAM: AP CHEST. HISTORY: Cough. Findings called. The bones are unremarkable. The cardiac silhouette and pulmonary vasculature are within normal limits. There is minimal left basilar atelectasis and/or pneumonia. Impression: Minimal left basilar atelectasis and/or pneumonia. THE EXAM: CT SCAN BRAIN WITHOUT CONTRAST HISTORY: Weakness. COMPARISON: CT scan brain 08/28 21 FINDINGS: Helically acquired axial images were obtained from skull base to the convexities without contrast utilizing 5-mm collimation. Sagittal and coronal reconstructions were imaged and reviewed. The ventricles and CSF spaces are prominent compatible with age appropriate atrophy. There is periventricular hypodensity noted, compatible chronic microvascular disease. No acute intracranial findings . There is a small retention cyst right maxillary sinus. Mastoid air cells are clear. The calvarium is intact. Atherosclerotic changes are seen involving cavernous internal carotid arteries. IMPRESSION: No acute intracranial findings EXAM: CHEST CTA WITH CONTRAST (PULMONARY ARTERY) HISTORY: Short of breath TECHNIQUE: CTA acquisition of the chest from the thoracic inlet to the upper abdomen following IV contrast administration timed to filling of the pulmonary artery. IV Contrast: Administered. 3D/MIP/VR images were utilized. CT Dose Reduction Techniques Employed: Yes COMPARISON: 08/28/2021 CT chest FINDINGS: Lines, Tubes, Devices: None. Pulmonary Embolism: - Diagnostic quality: Adequate. - Central(Main/Lobar/Interlobar): No embolus. - Peripheral (Segmental/Subsegmental): No embolus. - Right ventricle/Left ventricle ratio (normal <0.9): Normal. Lung Parenchyma and Airways: Central airways are patent without endobronchial lesion. No focal consolidation. Stable linear scarring changes in the left upper and left lower lobe as well as the right lower lobe. Stable 0.4 cm right lower lobe fissural nodule. Stable 0.5 cm right middle lobe nodule. Pleural Space: No pleural effusion. No pleural thickening. No pneumothorax. Thoracic Inlet, Mediastinum, and [place]: Thyroid gland is normal. No lymphadenopathy. Moderate hiatal hernia. Heart, Vessels, and Pericardium: -Ascending aorta is normal in caliber with mild atherosclerotic calcifications. -Main pulmonary artery is normal in caliber. -Heart chambers are not enlarged. -No significant valvular calcifications. -Mild coronary artery calcifications, however exam is not optimized for evaluation. -No pericardial effusion or thickening. Bones and Soft Tissues: Visualized bones are within normal limits. Chest wall soft tissues are within normal limits. Upper Abdomen: See CT abdomen pelvis report from the same day. IMPRESSION: No pulmonary embolism. No acute intrathoracic process. No pneumonia. Stable bilateral linear scarring changes. Stable right lung nodules. EXAM: CT SCAN OF THE ABDOMEN AND PELVIS WITH CONTRAST HISTORY: cancer TECHNIQUE: Helical imaging of the abdomen pelvis was performed following the intravenous administration of contrast. 2.5 mm thin axial images and coronal and sagittal reconstructions were obtained. Comparison 08/28/2021. FINDINGS: No acute abnormalities are seen within the liver, spleen, pancreas. The proximal ureters are normal size. The small and large bowel loops are normal caliber. No retroperitoneal abnormalities are seen. No acute abnormali ties are seen within the adrenal glands. No acute abnormalities are seen within the gallbladder. There is no free fluid seen within the pelvis. Diverticula are seen within the sigmoid colon without acute inflammation. There is a small to moderate size hiatal hernia. There is mild enlargement of the prostate gland. Lung bases are clear. No lytic or blastic lesions are seen within the osseous structures. IMPRESSION: There is no bowel obstruction or acute inflammatory change seen within the abdomen and pelvis. There is no ureteral obstruction. 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 Review Statement Review Statement: I have independently reviewed and interpreted the labs/EKGs/imaging that were ordered by the ER provider. I have reviewed all outside records that are available currently in our EMR including imaging/notes/labs from previous visits. Plan Plan: 1. Sepsis, unknown source - Pt lethargic and altered upon arrival. Pt received fluids in ER and abx. Will continue levaquin and NS. Blood cultures pending. UA prelim negative. CT head, c/a/p negative for acute findings. Lactic normal but procal elevated at 2. Will trend procal. Tylenol prn for fever. No ports. 2. Hematuria in a male with history of smoking - UA showed no sign of acute infection. Urine cx from 01/04 is negative. May need urology f/u outpatient for cystoscopy. 3. Hypokalemia - Replaced, monitor bmp. 4. MONTEZ, stage I in setting of dehydration - improved, continue fluids. 5. Dehydration - Improved, continue fluids 6. Dementia - Continue memantine 7. Chronic back pain - Continue home norco 8. Hyperlipidemia - Continue home statin 9. BPH - Continue flomax 10. DMT2 -Patient denies diabetes, but it is listed as a problem in pcp notes. Last a1c noted was 5.27. Will monitor glucose. 11. Recent UTI - Culture from 01/04 negative, but showed hematuria. See #2. 12. History of sarcoma and left lung cancer - If no etiology for sepsis found, would benefit from outpatient oncology follow up for further work up of fever. DVT Prophylaxis: Lovenox Time Spent: Greater than 80 minutes spent with patient, 50% of the time spent with this patient was devoted to counseling and coordination of care. [facility] minutes spent discussing advance care planning. FULL CODE Admit to: Flip to inpatient today, 01/06 Discussed Plan of Care with Dr. Liliana Franz. Plan to treat patient with antibiotics for 48 hours while awaiting blood cultures. Will broaden antibiotics if no improvement or change in his labs. No obvious etiology for sepsis at this time. Concerned with his history of sarcoma and left lung cancer and this hematuria. Would highly recommend that he follow- up with oncology outpatient following his discharge. Medications Medication Orders: Medications Ordered Category Date Time Status 0.9 % Sodium Chloride [Saline Flush] Meds 01/05/23 22:09 Active 1 syr IVF PRN PRN Acetaminophen [Tylenol] Meds 01/06/23 01:55 Active 650 mg PO Q4H PRN Alprazolam [Xanax] Meds 01/06/23 10:30 Active 0.5 mg PO TID PRN Aspirin [Aspirin EC] Meds 01/06/23 11:00 Active 325 mg PO DAILYWM Atorvastatin Calcium [Lipitor] Meds 01/06/23 11:00 Active 40 mg PO DAILY Gabapentin [Neurontin] Meds 01/06/23 11:00 Active 600 mg PO TID Hydrocodone Bit/Acetaminophen [[place] 10-325] Meds 01/06/23 10:30 Active 1 tab PO QID PRN Levofloxacin/D5w [Levaquin 750 mg/150 ml D5w] Meds 01/07/23 21:00 Active 750 mg in 150 ml IV Q48H Memantine HCl [Namenda] Meds 01/06/23 10:35 Active 10 mg PO BID Pantoprazole Sodium [Protonix] Meds 01/06/23 17:00 Active 40 mg PO BIDAC Sodium Chloride 0.9% [Sodium Chloride] 500 ml Meds 01/06/23 02:00 Active IV 75 mls/hr Tamsulosin HCl [Flomax] Meds 01/06/23 10:30 Active 0.4 mg PO DAILY
[2023-01-06] MEDS: ASPIRIN EC PO SCH (11:44)
[2023-01-06] MEDS: NAMENDA PO SCH ×2 (11:44→20:13)
[2023-01-06] MEDS: FLOMAX PO SCH (11:44)
[2023-01-06] MEDS: LIPITOR PO SCH (11:45)
[2023-01-06] MEDS: NEURONTIN PO SCH ×3 (11:45→20:13)
[2023-01-06] MEDS ORDERED: MYLANTA SUSP PO PRN (14:49)
[2023-01-06] MEDS: PEPCID PO SCH (15:04)
[2023-01-06] MEDS: PROTONIX PO SCH (17:26)
[2023-01-06] MEDS: SODIUM CHLORIDE 1,000 ML IV SCH (19:57)
[2023-01-07 05:18] LABS: HEMATOCRIT 38.8 % (42.0-52.0); HEMOGLOBIN 13.1 g/dl (14.0-18.0); IMMATURE GRANULOCYTE % (AUTO) 0.3 % (0.0-5.0); LYMPHOCYTES # (AUTO) 0.3 K/uL (0.60-3.4); LYMPHOCYTES % (AUTO) 8.1 (10.0-50.0); MEAN CORPUSCULAR HEMOGLOBIN 32.3 pg (27.0-31.0); MEAN CORPUSCULAR HGB CONC 33.8 (31.8-35.4); MEAN CORPUSCULAR VOLUME 95.6 fl (80.0-94.0); MONOCYTES # (AUTO) 0.1 K/uL (0.4-2.0); MONOCYTES % (AUTO) 2.8 (0-10); NEUTROPHILS # (AUTO) 3.5 K/ul (2.0-6.9); NEUTROPHILS % (AUTO) 88.8 % (42.2-75.2); RDW COEFFICIENT OF VARIATION 13.1 % (11.6-14.8); RED BLOOD COUNT 4.06 10^6/ul (4.70-6.10); WHITE BLOOD COUNT 3.94 K/ul (4.2-10.2)
[2023-01-07 05:34] LABS: ALANINE AMINOTRANSFERASE 91.4 U/L (0-50); ALBUMIN 3.48 g/dL (3.5-5.0); ALKALINE PHOSPHATASE 107.9 U/L (56-119); ASPARTATE AMINO TRANSFERASE 152.6 U/L (17-59); BILIRUBIN,TOTAL 0.64 mg/dL (0.2-1.3); BLOOD UREA NITROGEN 17.2 mg/dL (9-20); CALCIUM 7.42 mg/dL (8.4-10.2); CARBON DIOXIDE 22.1 mmol/L (22-30.0); CHLORIDE 103.8 mmol/L (98-107); CREATININE 1.29 mg/dL (0.60-1.10); GLUCOSE 112.3 mg/dL (74-106); POTASSIUM 3.43 mmol/L (3.5-5.1); SODIUM 133.3 mmol/L (134.5-145); TOTAL PROTEIN 6.38 g/dL (6.3-8.2)
[2023-01-07] MEDS: PEPCID PO SCH ×2 (05:40→16:50)
[2023-01-07] MEDS: PROTONIX PO SCH ×2 (05:40→16:51)
[2023-01-07] MEDS: TYLENOL PO PRN (05:42)
[2023-01-07 06:07] LABS: PLATELET COUNT 61 10^3/uL (140-440)
[2023-01-07] MEDS ORDERED: MOTRIN PO STA (07:49)
[2023-01-07] MEDS: NEURONTIN PO SCH ×3 (09:24→21:05)
[2023-01-07] MEDS: NAMENDA PO SCH ×2 (09:24→21:05)
[2023-01-07] MEDS: LIPITOR PO SCH (09:25)
[2023-01-07] MEDS: FLOMAX PO SCH (09:25)
[2023-01-07] MEDS: LOVENOX SUBCUT SCH (09:26)
[2023-01-07] MEDS: ASPIRIN EC PO SCH (09:37)
--- NOTE | 2023-01-07 10:21 | PCM.PROG ---
Provider Provider: REBECCA HORN PA-C, [facility] Chief Complaint Chief Complaint: PNEUMONIA,DEHYDRATION Subjective Subjective: Continued fevers overnight and this am. Complaints of low back pain and generally "not feeling well". States feels urgency to pee and has been incontinent. Objective Appearance: Positive No Apparent Distress, Ill-Appearing and Thin Chest/Lungs: Positive Symmetrical With Equal Breath Sounds, Clear to Auscultation Bilaterally and Good Air Movement all 4 Lung Curtis Heart: Positive RRR and Pulses Normal GI/: Positive Soft, Nontender, Bowel Sounds Normal, No Distention, No Organomegaly and Other (Tender, enlarged prostate) Musculoskeletal: Positive Not Examined Neurological: Positive Sensation Intact, Motor intact, Alert and Disorinted Vital Signs Vital Signs: Vital Signs: Last 24 Hours 01/06/23 14:00 01/06/23 18:00 01/06/23 19:00 Temperature 98.5 F 98.8 F Temperature Source Temporal Artery Scan Temporal Artery Scan Pulse Rate 10 L 119 H Respiratory Rate 20 20 Blood Pressure 98/68 142/95 H Blood Pressure Mean 78 110 Blood Pressure Location Right Radial Artery Left Radial Artery Blood Pressure Position Supine Supine O2 Sat by Pulse Oximetry 94 L 99 Oxygen Delivery Method Room Air Room Air Telemetry Type Remote Telemetry Telemetry Monitoring Continues Telemetry Heart Rate 118 H Telemetry SPO2 96 EKG MI Interval 0.21 H EKG QRS Interval 0.07 Telemetry Strip Reading 01/06/23 21:29 01/07/23 01:00 01/07/23 02:00 Temperature 97.8 F Temperature Source Pulse Rate 108 H 104 H Respiratory Rate 20 24 H Blood Pressure 125/87 138/83 Blood Pressure Mean 99 101 Blood Pressure Location Right Arm Right Arm Blood Pressure Position Supine Supine O2 Sat by Pulse Oximetry 95 Oxygen Delivery Method Room Air Room Air Telemetry Type Remote Telemetry Telemetry Monitoring Continues Telemetry Heart Rate 102 H Telemetry SPO2 98 EKG MI Interval 0.18 EKG QRS Interval 0.10 Telemetry Strip Reading 01/07/23 06:00 01/07/23 06:32 01/07/23 07:00 Temperature 101.2 F H 101.5 F H Temperature Source Oral Oral Pulse Rate 104 H Respiratory Rate 21 H Blood Pressure 111/86 Blood Pressure Mean 94 Blood Pressure Location Right Arm Blood Pressure Position Supine O2 Sat by Pulse Oximetry 97 Oxygen Delivery Method Room Air Room Air Telemetry Type Remote Telemetry Telemetry Monitoring Continues Telemetry Heart Rate 121 H Telemetry SPO2 EKG MI Interval 0.18 EKG QRS Interval 0.[address] Lab Results Lab Results: Lab Results: Last 24 Hours 01/07/23 05:13 WBC 3.94 L RBC 4.06 L Hgb 13.1 L Hct 38.8 L MCV 95.6 H MCH 32.3 H MCHC 33.8 RDW Coeff of Mague 13.1 Plt Count 61 L D Immature Gran % (Auto) 0.3 Neut % (Auto) 88.8 H Lymph % (Auto) 8.1 L [place] % (Auto) 2.8 Eos % (Auto) 0.0 Baso % (Auto) 0.0 Neut # (Auto) 3.5 Lymph # (Auto) 0.3 L [place] # (Auto) 0.1 L Eos # (Auto) 0.0 Baso # (Auto) 0.0 Immature Gran # (Auto) 0.0 Sodium 133.3 L Potassium 3.43 L Chloride 103.8 Carbon Dioxide 22.1 Anion Gap 10.83 BUN 17.2 Creatinine 1.29 H Estimated GFR (MDRD) 54.00 BUN/Creatinine Ratio 13.33 Glucose 112.3 H Calcium 7.42 L Total Bilirubin 0.64 AST 152.6 H D ALT 91.4 H D Alkaline Phosphatase 107.9 D Total Protein 6.38 Albumin 3.48 L Globulin 2.90 Albumin/Globulin Ratio 1.20 Procalcitonin 2.15 H Additional Comments Additional Comments: I have independently reviewed and interpreted the labs/EKGs/imaging ordered during this hospital stay. I have reviewed outside records that are available in our EMR that pertain to medical stay including imaging/notes/labs from previous visits. Active Medications Active Medications: Medications Generic Name Dose Route Start Last Admin Trade Name Freq PRN Reason Stop Dose Admin Acetaminophen 650 mg 01/06/23 01:55 01/07/23 05:42 Acetaminophen 325 Mg Tablet PO 650 mg Q4H PRN Administration Fever >101 Hydrocodone Bitart/Acetaminophen 1 tab 01/06/23 10:30 01/06/23 11:50 Hydrocodone Bit/Acetaminophen 10/325 Mg Tablet PO 1 tab QID PRN Administration MODERATE PAIN Al Hydroxide/Mg Hydroxide 30 ml 01/06/23 14:49 01/06/23 15:03 Mag Hydrox/Al Hydrox/Simeth 30 Ml Cup PO 30 ml DAILY PRN Administration Heartburn Alprazolam 0.5 mg 01/06/23 10:30 01/06/23 11:44 Alprazolam 0.5 Mg Tablet PO 0.5 mg TID PRN Administration Anxiety Aspirin 325 mg 01/06/23 11:00 01/07/23 09:37 Aspirin 325 Mg Tablet. PO Not Given DAILYWM PANTERA Atorvastatin Calcium 40 mg 01/06/23 11:00 01/07/23 09:25 Atorvastatin Calcium 20 Mg Tablet PO 40 mg DAILY PANTERA Administration Enoxaparin Sodium 40 mg 01/07/23 09:00 01/07/23 09:26 Enoxaparin Sodium 40 Mg/0.4 Ml Syr SUBCUT 40 mg DAILY PANTERA Administration Famotidine 20 mg 01/06/23 15:00 01/07/23 05:40 Famotidine 20 Mg Tablet PO 20 mg BIDAC PANTERA Administration Gabapentin 600 mg 01/06/23 11:00 01/07/23 09:24 Gabapentin 300 Mg Capsule PO 600 mg TID PANTERA Administration Sodium Chloride 1,000 mls @ 75 mls/hr 01/06/23 19:48 01/06/23 19:57 Sodium Chloride IV 75 mls/hr .[id number] PANTERA Administration Meropenem/Sodium Chloride 1 gm in 50 mls @ 75 mls/hr 01/07/23 13:00 Merrem 1 Gm/50 Ml Nacl IV 01/10/23 12:59 Q8HR PANTERA Memantine 10 mg 01/06/23 10:35 01/07/23 09:24 Memantine Hcl 10 Mg Tablet PO 10 mg BID PANTERA Administration Pantoprazole Sodium 40 mg 01/06/23 17:00 01/07/23 05:40 Pantoprazole Sodium 40 Mg Tablet. PO 40 mg BIDAC PANTERA Administration Sodium Chloride 1 syr 01/05/23 22:09 0.9% Sodium Chloride 10 Ml Disp.Syrin IVF PRN PRN To flush IV Tamsulosin HCl 0.4 mg 01/06/23 10:30 01/07/23 09:25 Tamsulosin Hcl 0.4 Mg Cap.Er.24h PO 0.4 mg DAILY PANTERA Administration Plan Plan: 1. Sepsis, unknown source - Pt lethargic and altered upon arrival. Pt received fluids in ER and abx. Blood cultures pending - prelim negative after 1 day. UA prelim negative. CT head, c/a/p negative for acute findings. Lactic normal but procal elevated at 2. Will trend procal. Tylenol prn for fever. No ports. Still running fever. Will continue NS. Switched abx from levaquin to merrem. 2. Prostatitis - UA showed no sign of acute infection, +3 blood, prostate enlarged and painful on exam, urine cx from 01/04 is negative. Covering with merrem. May need urology f/u outpatient for cystoscopy. 3. Hypokalemia - Replaced, monitor bmp. 4. MONTEZ, stage I in setting of dehydration - improving, continue fluids. 5. Dehydration - Improving, continue fluids 6. Dementia - Continue memantine 7. Chronic back pain - Continue home norco 8. Hyperlipidemia - Continue home statin 9. BPH - Continue flomax 10. DMT2 -Patient denies diabetes, but it is listed as a problem in pcp notes. Last a1c noted was 5.27. Will monitor glucose. 11. Recent UTI - Culture from 01/04 negative, but showed hematuria. See #2. 12. History of sarcoma and left lung cancer - If no etiology for sepsis found, would benefit from outpatient oncology follow up for further work up of fever. Plan to treat patient with antibiotics for 48 hours for prostatitis.Awaiting further blood cultures. Concerned with his history of sarcoma and left lung cancer and this hematuria. Would highly recommend that he follow-up with oncology outpatient following his discharge. Review Statement Review Statement: I have personally discussed and reviewed the patient's visit/currently labs/imaging/decision making with Dr. Novak, my supervising attending. Greater that 50 minutes spent with patient, 50% of the time spent with this patient was devoted to counseling and coordination of care.
[2023-01-07] MEDS: SODIUM CHLORIDE 1,000 ML IV SCH (10:25)
[2023-01-07] MEDS: MERREM 1 GM/50 ML NACL 1 GM/50 ML BAG IV SCH ×2 (13:24→21:05)
[2023-01-07] MEDS: SODIUM CHLORIDE 500 ML IV SCH (17:13)
[2023-01-07 17:55] LABS: BILIRUBIN,URINE Negative (NEGATIVE); CLARITY,URINE Slightly (CLEAR); COLOR,URINE Yellow (YELLOW); GLUCOSE, URINE (UA) Trace (NEGATIVE); KETONES,URINE Negative (NEGATIVE); LEUKOCYTE ESTERASE ,URINE Negative (NEGATIVE); NITRITE,URINE Negative (NEGATIVE); PH,URINE 5.5 (5-9); PROTEIN,URINE 2+ (NEGATIVE); URINE, BLOOD 3+ (NEGATIVE); UROBILINOGEN,URINE 0.2 (0.2)
[2023-01-07 18:03] LABS: AMORPHOUS SEDIMENT,UR TRACE (NOT PRESENT); RENAL EPITHELIAL CELLS,URINE 0-2 (NOT PRESENT); SQUAMOUS EPITHELIAL CELL,UR 0-2 (0-5); URINE RBC, MICROSCOPIC 20-30 (0-2); URINE WBC, MICROSCOPIC 0-2 (0-2)
[2023-01-07] MEDS ORDERED: LEVAQUIN 750 MG/150 ML D5W 750 MG/150 ML BAG IV SCH (21:00)
[2023-01-08] MEDS: SODIUM CHLORIDE 1,000 ML IV SCH (02:14)
[2023-01-08] MEDS: TYLENOL PO PRN (02:55)
[2023-01-08] MEDS: MERREM 1 GM/50 ML NACL 1 GM/50 ML BAG IV SCH ×2 (04:16→14:46)
[2023-01-08 05:38] LABS: BASOPHILS % (AUTO) 0.3 % (0.0-3.0); HEMATOCRIT 35.6 % (42.0-52.0); HEMOGLOBIN 12.1 g/dl (14.0-18.0); IMMATURE GRANULOCYTE % (AUTO) 0.6 % (0.0-5.0); LYMPHOCYTES # (AUTO) 0.3 K/uL (0.60-3.4); LYMPHOCYTES % (AUTO) 8.1 (10.0-50.0); MEAN CORPUSCULAR HEMOGLOBIN 31.8 pg (27.0-31.0); MEAN CORPUSCULAR VOLUME 93.7 fl (80.0-94.0); MONOCYTES # (AUTO) 0.1 K/uL (0.4-2.0); MONOCYTES % (AUTO) 3.2 (0-10); NEUTROPHILS # (AUTO) 2.7 K/ul (2.0-6.9); NEUTROPHILS % (AUTO) 87.8 % (42.2-75.2); RDW COEFFICIENT OF VARIATION 13.3 % (11.6-14.8)
[2023-01-08 05:57] LABS: ALANINE AMINOTRANSFERASE 133.3 U/L (0-50); ALBUMIN 2.8 g/dL (3.5-5.0); ALKALINE PHOSPHATASE 107.9 U/L (56-119); ASPARTATE AMINO TRANSFERASE 234.4 U/L (17-59); BILIRUBIN,TOTAL 0.69 mg/dL (0.2-1.3); BLOOD UREA NITROGEN 29.9 mg/dL (9-20); CALCIUM 6.66 mg/dL (8.4-10.2); CARBON DIOXIDE 18.1 mmol/L (22-30.0); CHLORIDE 106.3 mmol/L (98-107); CREATININE 1.97 mg/dL (0.60-1.10); GLUCOSE 101.1 mg/dL (74-106); POTASSIUM 3.33 mmol/L (3.5-5.1); SODIUM 133.9 mmol/L (134.5-145); TOTAL PROTEIN 5.47 g/dL (6.3-8.2)
[2023-01-08] MEDS: PEPCID PO SCH (06:17)
[2023-01-08] MEDS: PROTONIX PO SCH (06:17)
[2023-01-08 06:18] LABS: PLATELET COUNT 30 10^3/uL (140-440)
--- NOTE | 2023-01-08 08:21 | RS.PTINEVL ---
Subjective Patient information Date of Evaluation: 01/07/23 Date of Arrival on Unit: 01/06/23 Admitted From:: Home Diagnosis: sepsis, prostatitis Usual Living Arrangement: With Spouse Living Arrangement Comments: lives at home with his Home Environment: House and Stairs (few) Medical History: COPD, Dementia, Diabetes, Arthritis and Cancer (sarcoma, me tastatic lung CA) Medical History Comments:: anemia, DJD, GERD, BPH, CKD LATEX ALLERGY?: No Surgical History Comments:: surgical removal of tumor R shld Medications: see chart Subjective Information/ Patient Comments:: pt states that he is tired and cold today. Level of function Prior to this admission, the patient could do the following:: Independent Selfcare, Independent ADL's and Independent Ambulation Abilities prior to this admission: pt reports he was independent with ADL's and amb without AD prior to admit Current Level of Function: Partially Dependent Current Equipment Used at Home: quad cane as needed Interventions Objective Patient Orientation: Person, Place and Situation Current Interventions: IV's and Telemetry Range of Motion ROM Right Upper Extremity AROM: Moderate limitation (limited R shld ROM, elbow/wrist/hand WFL's ) Left Upper Extremity AROM: WFL's Right Lower Extremity AROM: WFL's Left Lower Extremity AROM: WFL's Muscle Strength Muscle Strength Right Upper Extremity: Mild Weakness (shld flex 3-/5, elbow flex/ext 4/5, ) Left Upper Extremity: Mild Weakness (shld flex 4/5, elbow flex/ext 4/5) Right Lower Extremity: Mild Weakness (hip flex 4-/5, knee flex/ext 4/5, ankle DF/PF 4/5) Left Lower Extremity: Mild Weakness (hip flex 4-/5, knee flex/ext 4/5, ankle DF/PF 4/5) Sensation Sensation Right Upper Extremity: Intact/Normal Left Upper Extremity: Intact/Normal Right Lower Extremity: Intact/Normal Left Lower Extremity: Intact/Normal Palpation Palpation Findings: None/Normal Balance Sitting Balance and Reactions Static Sitting Balance: Fair Dynamic Sitting Balance: Fair (fair-) Sitting Equilibrium Reactions: Delayed Left and Delayed Right Sitting Protective Reactions: Delayed Left and Delayed Right Standing Balance and Reactions Static Standing Balance: Poor Dynamic Standing Balance: Poor Standing Equilibrium Reactions: Delayed Left and Delayed Right Standing Protective Reactions: Delayed Left and Delayed Right Functional Mobility Bed Mobility Rolling R/L: Supervision Supine to Sit: Min Assist Sit to Supine: Supervision Transfers Sit to Stand: CGA Stand to Sit: CGA Comments:: on/off BSC with min x 1 Safety Awareness Safety Awareness: Poor JOHNIE INDEX SCORE: n/a Ambulation Ambulation Assistive Device Used: Rolling Walker Orthotic/Prosthetic Device: No Distance: 22ft Assistance needed with Ambulation: Min Assist, 1 person assist and 2 person assist Quality of Ambulation: pt amb with min x 1 +1 for IV. pt amb with increased lat sway, deviation from path, required assist to guide rwx and simple cues for gait technique. Gait Deviations: Step-to gait, Forward posture, Short stride and Deviates from path Factors Affecting Ambulation: Decreased Balance, Weakness, Decreased Coordination, Decreased Safety, Cognitive Status and Limited Endurance Treatment time Units charged ADL: 1 (theract) Time with patient Length of Evaluation: 18 Total treatment time: 32 Patient Education Education Patient Education: Activity Modification and Education of Plan of Care Teaching Recipient: Patient Teaching Methods: Discussion and Demonstration Comments: discussion regarding POC as well as demonstration for use of rwx. Assessment Assessment Problem List:: Decreased level of function, Requires training/education, Decreased safety/Risk of falls, Weakness and Cognitive status limits abilities Rehab Potential: Fair Further Therapy Indicated?: Yes Candidate for Swing Bed for Therapy Services?: Feel pt could possibly be a candidate for swing bed for therapy. Evaluation Complexity: HISTORY: Medium, EXAM OF BODY SYSTEMS: Medium, CLINICAL PRESENTATION: Medium and CLINICAL DECISION MAKING: Medium Patient's Goal(s): Get stronger and go home Short Term Goals GOAL #1: pt demonstrate rolling and bridging independently. Goal to be met by: 01/09/23 GOAL #2: Transfer sup to/from sit CGA Goal to be met by: 01/09/23 GOAL #3: Transfer sit to/from stand CGA Goal to be met by: 01/09/23 GOAL #4: pt amb with rwx 50ft with CGA to min x 1. Goal to be met by: 01/09/23 GOAL #5: Improve BLE strength 4+/5 Goal to be met by: 01/09/23 Emergency Planner Goals GOAL #1: Transfer sup to/from sit to/from stand SBA Goal to be met by: 01/11/23 GOAL #2: pt amb with rwx functional household distances with SBA Goal to be met by: 01/11/23 GOAL #3: Improve dyn stand balance fair Goal to be met by: 01/11/23 Plan Plan of Care: Therapeutic EX, Neuromuscular Re-Educ and Therapeutic Activity Other:: gait training Frequency of Treatment: 1-2 X day, as tolerated Duration of Treatment: 5 days Anticipated Discharge Destination: Home Treatment Diagnosis (ICD 10 Codes): impaired balance R 26.81 gait difficulty R 26.2 weakness R 53.1 Has the Physician been added for Co-signature?: Yes
[2023-01-08] MEDS: LIPITOR PO SCH (08:56)
[2023-01-08] MEDS: NAMENDA PO SCH (08:56)
[2023-01-08] MEDS: NEURONTIN PO SCH ×2 (08:56→14:32)
[2023-01-08] MEDS: FLOMAX PO SCH (08:56)
[2023-01-08] MEDS: ASPIRIN EC PO SCH (08:56)
[2023-01-08] MEDS: LOVENOX SUBCUT SCH (08:58)
[2023-01-08 09:56] VITALS: BP 120/71; RESP 18; TEMP 99.2
[2023-01-08] MEDS ORDERED: VANCOMYCIN 1 GRAM/200 ML PREMIX 1 GM/200 ML BAG IV SCH (10:00)
--- NOTE | 2023-01-08 11:12 | PCM.PROG ---
Date/Time Seen Date Seen by Provider: 01/08/23 Provider Provider: LYRIC MASSEY, [facility] Chief Complaint Chief Complaint: PNEUMONIA,DEHYDRATION Subjective Subjective: No events overnight. Reports constant back pain. Miminal relief with norco. Still incontinent of urine. More alert and oriented today. Continued tachycardia. Objective Appearance: Positive No Apparent Distress, Alert and Oriented x3, Thin and Cachectic Chest/Lungs: Positive Symmetrical With Equal Breath Sounds, Clear to Auscultation Bilaterally and Good Air Movement all 4 Lung Curtis Heart: Positive RRR, Pulses Normal and Tachycardia GI/: Positive Soft, Nontender, Bowel Sounds Normal, No Distention and No Organomegaly Musculoskeletal: Positive Instability Neurological: Positive Sensation Intact, Motor intact, Alert, Oriented and Other (generalized weakness) Vital Signs Vital Signs: Vital Signs: Last 24 Hours 01/07/23 14:00 01/07/23 13:00 01/07/23 18:00 Temperature 96.8 F L 98.1 F Temperature Source Temporal Artery Scan Oral Pulse Rate 89 116 H Respiratory Rate 15 20 Blood Pressure 95/55 L 126/71 Blood Pressure Mean 68 89 Blood Pressure Location Left Arm Right Arm Blood Pressure Position Supine O2 Sat by Pulse Oximetry 95 97 Oxygen Delivery Method Room Air Room Air Telemetry Type Bedside Monitor Telemetry Monitoring Continues Telemetry Heart Rate 90 Telemetry SPO2 94 EKG MO Interval 0.17 EKG QRS Interval 0.08 Telemetry Strip Reading NSR 01/07/23 21:58 01/07/23 19:00 01/08/23 02:00 Temperature Temperature Source Pulse Rate 118 H 113 H Respiratory Rate 23 H 23 H Blood Pressure 130/73 122/75 Blood Pressure Mean 92 90 Blood Pressure Location Right Arm Right Arm Blood Pressure Position Supine Sitting O2 Sat by Pulse Oximetry 93 L 97 Oxygen Delivery Method Room Air Room Air Telemetry Type Bedside Monitor Telemetry Monitoring Continues Telemetry Heart Rate 120 H Telemetry SPO2 98 EKG MO Interval 0.17 EKG QRS Interval 0.06 Telemetry Strip Reading SR 01/08/23 06:00 01/08/23 01:00 01/08/23 03:05 Temperature 98.2 F 99.1 F Temperature Source Temporal Artery Scan Tympanic Pulse Rate 106 H Respiratory Rate 22 H Blood Pressure 95/72 Blood Pressure Mean 79 Blood Pressure Location Right Arm Blood Pressure Position Sitting O2 Sat by Pulse Oximetry 98 Oxygen Delivery Method Room Air Room Air Telemetry Type Bedside Monitor Telemetry Monitoring Continues Telemetry Heart Rate 115 H Telemetry SPO2 97 EKG MO Interval 0.19 EKG QRS Interval 0.07 Telemetry Strip Reading SR 01/08/23 03:54 01/08/23 07:00 01/08/23 09:55 Temperature 98.9 F 99.2 F Temperature Source Tympanic Oral Pulse Rate 112 H Respiratory Rate 18 Blood Pressure 120/71 Blood Pressure Mean 87 Blood Pressure Location Right Arm Blood Pressure Position O2 Sat by Pulse Oximetry 98 Oxygen Delivery Method Room Air Room Air Telemetry Type Bedside Monitor Telemetry Monitoring Continues Telemetry Heart Rate 103 H Telemetry SPO2 98 EKG MO Interval 0.15 EKG QRS Interval 0.03 L Telemetry Strip Reading SR Lab Results Lab Results: Lab Results: Last 24 Hours 01/08/23 01/07/23 05:33 17:16 WBC 3.10 L RBC 3.80 L Hgb 12.1 L Hct 35.6 L MCV 93.7 MCH 31.8 H MCHC 34.0 RDW Coeff of Mague 13.3 Plt Count 30 L D Immature Gran % (Auto) 0.6 Neut % (Auto) 87.8 H Lymph % (Auto) 8.1 L [place] % (Auto) 3.2 Eos % (Auto) 0.0 Baso % (Auto) 0.3 Neut # (Auto) 2.7 Lymph # (Auto) 0.3 L [place] # (Auto) 0.1 L Eos # (Auto) 0.0 Baso # (Auto) 0.0 Immature Gran # (Auto) 0.0 Sodium 133.9 L Potassium 3.33 L Chloride 106.3 Carbon Dioxide 18.1 L Anion Gap 12.83 BUN 29.9 H Creatinine 1.97 H D Estimated GFR (MDRD) 33.00 BUN/Creatinine Ratio 15.17 Glucose 101.1 Calcium 6.66 L Total Bilirubin 0.69 AST 234.4 H D ALT 133.3 H D Alkaline Phosphatase 107.9 Total Protein 5.47 L Albumin 2.80 L Globulin 2.67 Albumin/Globulin Ratio 1.04 Urine Color Yellow Urine Clarity Slightly Urine pH 5.5 Ur Specific [place] 1.020 Urine Protein 2+ H Urine Glucose (UA) Trace H Urine Ketones Negative Urine Blood 3+ H Urine Nitrite Negative Urine Bilirubin Negative Urine Urobilinogen 0.2 Ur Leukocyte Esterase Negative Urine Microscopic RBC 20-30 Urine Microscopic WBC 0-2 Ur Squamous Epith Cells 0-2 Ur Renal Epithelial Cell 0-2 Amorphous Sediment Trace Coarse Granular Casts 2-5 Additional Comments Additional Comments: I have independently reviewed and interpreted the labs/EKGs/imaging ordered during this hospital stay. I have reviewed outside records that are available in our EMR that pertain to medical stay including imaging/notes/labs from previous visits. Active Medications Active Medications: Medications Generic Name Dose Route Start Last Admin Trade Name Freq PRN Reason Stop Dose Admin Acetaminophen 650 mg 01/06/23 01:55 01/08/23 02:55 Acetaminophen 325 Mg Tablet PO 650 mg Q4H PRN Administration Fever >101 Hydrocodone Bitart/Acetaminophen 1 tab 01/06/23 10:30 01/06/23 11:50 Hydrocodone Bit/Acetaminophen 10/325 Mg Tablet PO 1 tab QID PRN Administration MODERATE PAIN Al Hydroxide/Mg Hydroxide 30 ml 01/06/23 14:49 01/06/23 15:03 Mag Hydrox/Al Hydrox/Simeth 30 Ml Cup PO 30 ml DAILY PRN Administration Heartburn Alprazolam 0.5 mg 01/06/23 10:30 01/06/23 11:44 Alprazolam 0.5 Mg Tablet PO 0.5 mg TID PRN Administration Anxiety Aspirin 325 mg 01/06/23 11:00 01/08/23 08:56 Aspirin 325 Mg Tablet. PO 325 mg DAILYWM PANTERA Administration Atorvastatin Calcium 40 mg 01/06/23 11:00 01/08/23 08:56 Atorvastatin Calcium 20 Mg Tablet PO 40 mg DAILY PANTERA Administration Enoxaparin Sodium 40 mg 01/07/23 09:00 01/08/23 08:58 Enoxaparin Sodium 40 Mg/0.4 Ml Syr SUBCUT 40 mg DAILY PANTERA Administration Famotidine 20 mg 01/06/23 15:00 01/08/23 06:17 Famotidine 20 Mg Tablet PO 20 mg BIDAC PANTERA Administration Gabapentin 600 mg 01/06/23 11:00 01/08/23 08:56 Gabapentin 300 Mg Capsule PO 600 mg TID PANTERA Administration Sodium Chloride 1,000 mls @ 75 mls/hr 01/06/23 19:48 01/08/23 02:14 Sodium Chloride IV 75 mls/hr .[id number] PANTERA Administration Meropenem/Sodium Chloride 1 gm in 50 mls @ 75 mls/hr 01/07/23 13:00 01/08/23 04:16 Merrem 1 Gm/50 Ml Nacl IV 01/10/23 12:59 75 mls/hr Q8HR PANTERA Administration VANCOMYCIN/WATER FOR INJ (PEG) 1 gm in 200 mls @ 200 mls/hr 01/08/23 10:00 01/08/23 09:57 Vancomycin 1 Gram/200 Ml Premix IV 01/11/23 09:59 200 mls/hr DAILY PANTERA Administration Memantine 10 mg 01/06/23 10:35 01/08/23 08:56 Memantine Hcl 10 Mg Tablet PO 10 mg BID PANTERA Administration Pantoprazole Sodium 40 mg 01/06/23 17:00 01/08/23 06:17 Pantoprazole Sodium 40 Mg Tablet.Dr PO 40 mg BIDAC PANTERA Administration Sodium Chloride 1 syr 01/05/23 22:09 0.9% Sodium Chloride 10 Ml Disp.Syrin IVF PRN PRN To flush IV Tamsulosin HCl 0.4 mg 01/06/23 10:30 01/08/23 08:56 Tamsulosin Hcl 0.4 Mg Cap.Er.24h PO 0.4 mg DAILY PANTERA Administration Plan Plan: 1. Sepsis - Blood cultures prelim negative after 2 day. UA prelim negative. CT head, c/a/p negative for acute findings. Lactic normal but procal elevated at 2. Tylenol prn for fever. No ports. Will continue NS. Switched abx from levaquin to merrem. Added vancomycin today due to worsening wbc count 2. Prostatitis - UA showed no sign of acute infection, +3 blood, prostate enlarged and painful on exam, urine cx from 01/04 is negative. Covering with merrem and vanc. 3. MONTEZ - worsening with fluids, likely due to end organ failure r/t return of cancer 4. Elevated liver enzymes - likely due to end organ failure 5. History of sarcoma and left lung cancer - no etiology for sepsis found, concern for return of cancer and need for oncology 6. Dementia - Continue memantine 7. Chronic back pain - Continue home norco 8. Hyperlipidemia - Continue home statin 9. BPH - Continue flomax 10. DMT2 -Patient denies diabetes, but it is listed as a problem in pcp notes. Last a1c noted was 5.27. Will monitor glucose. 11. Recent UTI - Culture from 01/04 negative, but showed hematuria. See #2. Discussed extensively with patient and concern for cancer return based on lab findings, hematuria, back pain, and recent rapid unexplained weight loss. Patient and do not want to pursue cancer treatment any further at this time. Patient wishes to undergo antibiotics for treatment of prostatitis and requests hospice care for comfort measures. Review Statement Review Statement: I have personally discussed and reviewed the patient's visit/currently labs/imaging/decision making with Dr. Novak, my supervising attending. Greater that 50 minutes spent with patient, 50% of the time spent with this patient was devoted to counseling and coordination of care.
--- NOTE | 2023-01-08 13:26 | DCSUM ---
Admission Date Admission Date: 01/06/23 Discharge Date Discharge Date: 01/08/23 Admission Diagnosis Admission Diagnosis: Sepsis unknown origin Discharge Diagnosis Discharge Diagnosis: Prostatitis, Metastatic Disease Hospital Provider Hospital Provider: LYRIC MASSEY, [facility] [place] Primary Care Physician Primary Care Physician: JOSE ANGEL FRANZ MD Summary of History and Physical Summary of History and Physical: Patient is a 77-year-old male from home with past medical history of sarcoma, hx of lung cancer, COPD, BPH, diabetes, chronic kidney disease, anemia, GERD, vitamin B12 deficiency, degenerative joint disease who presented with generalized weakness, altered mental status, and fever over last few days. He states that he started feeling bad a little over a week ago. He was having some urinary frequency. Denies burning with urination. He saw his primary care provider on Saturday who prescribed him Levaquin for possible urinary tract infection. He continued to get more weak and just overall not feel well. He has been also been running a fever and having chills. In the ER he was noted to have a temp of 100.7 and his heart rate was elevated at 119. He met sepsis criteria and was given Levaquin and 2 L of fluids. Head CT was negative. Chest x-ray showed minimal atelectasis versus pneumonia of left lower lung. Labs indicated dehydration with an elevated creatinine and BUN. White blood cell count was normal. Urinalysis negative for infection but was positive for blood. He was admitted to [facility]. This morning patient states he is feeling better. He is alert and oriented. He states that his urinary issues have improved somewhat. He denies any changes in his bowels or blood in his stool. No chest pain shortness of breath cough or abdominal pain. 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 He underwent chemo and radiation. He had a port at that time but no longer has a port. He complains of chronic back pain for which he saw his PCP and had imaging done recently in December. Labs improved today but procal is elevated at 2. 1. Sepsis, unknown source - Pt lethargic and altered upon arrival. Pt received fluids in ER and abx. Will continue levaquin and NS. Blood cultures pending. UA prelim negative. CT head, c/a/p negative for acute findings. Lactic normal but procal elevated at 2. Will trend procal. Tylenol prn for fever. No ports. 2. Hematuria in a male with history of smoking - UA showed no sign of acute infection. Urine cx from 01/04 is negative. May need urology f/u outpatient for cystoscopy. 3. Hypokalemia - Replaced, monitor bmp. 4. MONTEZ, stage I in setting of dehydration - improved, continue fluids. 5. Dehydration - Improved, continue fluids 6. Dementia - Continue memantine 7. Chronic back pain - Continue home norco 8. Hyperlipidemia - Continue home statin 9. BPH - Continue flomax 10. DMT2 -Patient denies diabetes, but it is listed as a problem in pcp notes. Last a1c noted was 5.27. Will monitor glucose. 11. Recent UTI - Culture from 01/04 negative, but showed hematuria. See #2. 12. History of sarcoma and left lung cancer - If no etiology for sepsis found, would benefit from outpatient oncology follow up for further work up of fever. Plan to treat patient with antibiotics for 48 hours while awaiting blood cultures. Will broaden antibiotics if no improvement or change in his labs. No obvious etiology for sepsis at this time. Concerned with his history of sarcoma and left lung cancer and this hematuria. Would highly recommend that he follow- up with oncology outpatient following his discharge. Hospital Course Subjective: Mental status improved today. Still feeling weak. Constant back pain. Still incontinent of urine. WBC continued to decline with antibiotic therapy. Initially was started on levaquin and then switched to merrem and vancomycin. Blood cultures negative x 2 days. UA negative. 1. Sepsis - Blood cultures prelim negative after [address] day[address] UA prelim negative. CT head, c/a/p negative for acute findings. Lactic normal but procal elevated at 2. Tylenol prn for fever. No ports. Will continue NS. Switched abx from levaquin to merrem. Added vancomycin today due to worsening wbc count 2. Prostatitis - UA showed no sign of acute infection, +3 blood, prostate enlarged and painful on exam, urine cx from 01/04 is negative. Covering with merrem and vanc. 3. MONTEZ - worsening with fluids, likely due to end organ failure r/t return of cancer 4. Elevated liver enzymes - likely due to end organ failure 5. History of sarcoma and left lung cancer - no etiology for sepsis found, concern for return of cancer and need for oncology 6. Dementia - Continue memantine 7. Chronic back pain - Continue home norco 8. Hyperlipidemia - Continue home statin 9. BPH - Continue flomax 10. DMT2 -Patient denies diabetes, but it is listed as a problem in pcp notes. Last a1c noted was 5.27. Will monitor glucose. 11. Recent UTI - Culture from 01/04 negative, but showed hematuria. See #2. Discussed extensively with patient and concern for cancer return based on lab findings, hematuria, back pain, and recent rapid unexplained weight loss. Patient and do not want to pursue cancer treatment any further at this time. Patient wishes to undergo antibiotics for treatment of prostatitis and requests hospice care for comfort measures. [facility] accepted patient into their services. Arrangements have been made for them to begin care starting this afternoon/evening. Appearance: Pleasant, No Apparent Distress, Alert and Ill-appearing HEENT: MMM and Supple CVS: No Murmur and No Rubs Abdomen: Soft, Non-Tender and No Distention Respiratory: No Dyspnea Extremities: No Edema Vital Signs: Most Recent Vital Signs Temperature 99.2 F 01/08/23 09:55 Temperature Source Oral 01/08/23 09:55 Temperature Source Oral 01/05/23 23:26 Pulse Rate 112 H 01/08/23 09:55 Respiratory Rate 18 01/08/23 09:55 Blood Pressure 120/71 01/08/23 09:55 Blood Pressure Mean 87 01/08/23 09:55 Blood Pressure Right Arm 105/66 01/06/23 02:10 Blood Pressure Location Right Arm 01/08/23 09:55 Blood Pressure Position Sitting 01/08/23 06:00 O2 Sat by Pulse Oximetry 98 01/08/23 09:55 Oxygen Delivery Method Room Air 01/08/23 09:55 Height 5 ft 9 in 01/06/23 02:10 Weight 180 lb 2 oz 01/06/23 02:10 Telemetry Type Bedside Monitor 01/08/23 12:54 Telemetry Monitoring Continues 01/08/23 12:54 Irregular Telemetry Rate (Approximate) 80-90 BPM 01/06/23 02:18 Telemetry Heart Rate 108 H 01/08/23 12:54 Telemetry SPO2 98 01/08/23 07:00 EKG VT Interval 0.09 L 01/08/23 12:54 EKG QRS Interval 0.05 L 01/08/23 12:54 EKG QT Interval 0.33 01/06/23 02:18 Telemetry Strip Reading SR/ST 01/08/23 12:54 Lab Results Last 24 Hours: 01/08/23 01/07/23 05:33 17:16 WBC 3.10 L RBC 3.80 L Hgb 12.1 L Hct 35.6 L MCV 93.7 MCH 31.8 H MCHC 34.0 RDW Coeff of Mague 13.3 Plt Count 30 L D Immature Gran % (Auto) 0.6 Neut % (Auto) 87.8 H Lymph % (Auto) 8.1 L Moffat % (Auto) 3.2 Eos % (Auto) 0.0 Baso % (Auto) 0.3 Neut # (Auto) 2.7 Lymph # (Auto) 0.3 L Moffat # (Auto) 0.1 L Eos # (Auto) 0.0 Baso # (Auto) 0.0 Immature Gran # (Auto) 0.0 Sodium 133.9 L Potassium 3.33 L Chloride 106.3 Carbon Dioxide 18.1 L Anion Gap 12.83 BUN 29.9 H Creatinine 1.97 H D Estimated GFR (MDRD) 33.00 BUN/Creatinine Ratio 15.17 Glucose 101.1 Calcium 6.66 L Total Bilirubin 0.69 AST 234.4 H D ALT 133.3 H D Alkaline Phosphatase 107.9 Total Protein 5.47 L Albumin 2.80 L Globulin 2.67 Albumin/Globulin Ratio 1.04 Urine Color Yellow Urine Clarity Slightly Urine pH 5.5 Ur Specific [place] 1.020 Urine Protein 2+ H Urine Glucose (UA) Trace H Urine Ketones Negative Urine Blood 3+ H Urine Nitrite Negative Urine Bilirubin Negative Urine Urobilinogen 0.2 Ur Leukocyte Esterase Negative Urine Microscopic RBC 20-30 Urine Microscopic WBC 0-2 Ur Squamous Epith Cells 0-2 Ur Renal Epithelial Cell 0-2 Amorphous Sediment Trace Coarse Granular Casts 2-5 Discharge Instructions Discharge Planning: Discharge Planning > 40 minutes If patient is discharged with left ventricular systolic dysfunction: no Discharged with a beta jass? [] If no, why not? [] Discharged with an ness/arb? [] If no, why not? [] Activity as tolerated. Diabetic diet Treating prostatitis with augmentin bid x 10 days Under care of Hospice for comfort measures. Discharge Medications: Medications at Discharge (Home Meds & RX) aspirin 325 mg tablet,delayed release 1 tab PO DAILY 05/25/14 atorvastatin 40 mg tablet (Lipitor) 1 tab PO DAILY 05/25/14 pantoprazole 40 mg tablet,delayed release (Protonix) 1 tab PO BID 05/25/14 memantine 28 mg capsule sprinkle,extended release 24hr See Rx Instructions .Route .COMPLEX #90 caps 09/13/22 montelukast 10 mg tablet See Rx Instructions .Route .COMPLEX #90 tabs 10/29/22 tamsulosin 0.4 mg capsule See Rx Instructions .Route .COMPLEX #90 caps 12/10/22 alprazolam 0.5 mg tablet (Xanax) 0.5 mg PO TID PRN Anxiety #90 tabs 12/27/22 hydrocodone 10 mg-acetaminophen 325 mg tablet 1 tab PO QID PRN pain #120 tabs 12/27/22 gabapentin 600 mg tablet 600 mg PO TID #90 tabs 01/04/23 levofloxacin 500 mg tablet 500 mg PO Q24H 10 days #10 tabs 01/04/23 folic acid 1 mg tablet 1 mg PO DAILY 01/05/23 Discharge Plan Discharge Activity Restrictions/Additional Instructions: Activity as tolerated. Diabetic diet Treating prostatitis with Augmentin bid x 10 days Under care of Hospice for comfort measures. Instructions: Prostatitis (GEN), Hospice Care (GEN), Comfort Measures (GEN) Patient Disposition: DISCHARGED TO HOSPICE -HOME Prescriptions: New amoxicillin-pot clavulanate 875-125 mg tablet 1 tab PO BID Qty: 20 0RF Continued memantine 28 mg capsule,sprinkle,ER 24hr See Rx Instructions .ROUTE .COMPLEX Qty: 90 1RF Dose Instruction: TAKE 1 CAPSULE EVERY DAY Rx Instructions: TAKE 1 CAPSULE EVERY DAY montelukast 10 mg tablet See Rx Instructions .ROUTE .COMPLEX Qty: 90 1RF Dose Instruction: TAKE 1 TABLET AT BEDTIME Rx Instructions: TAKE 1 TABLET AT BEDTIME tamsulosin 0.4 mg capsule See Rx Instructions .ROUTE .COMPLEX Qty: 90 1RF Dose Instruction: TAKE 1 CAPSULE BY MOUTH DAILY Rx Instructions: TAKE 1 CAPSULE BY MOUTH DAILY gabapentin 600 mg tablet 600 mg PO TID Qty: 90 1RF atorvastatin [Lipitor] 40 MG tablet 1 tab PO DAILY aspirin 325 MG tablet,delayed release (DR/EC) 1 tab PO DAILY pantoprazole [Protonix] 40 MG tablet,delayed release (DR/EC) 1 tab PO BID folic acid 1 mg tablet 1 mg PO DAILY hydrocodone-acetaminophen 10-325 mg tablet 1 tab PO QID PRN (Reason: pain) Qty: 120 0RF alprazolam [Xanax] 0.5 mg tablet 0.5 mg PO TID PRN (Reason: Anxiety) Qty: 90 2RF Discontinued levofloxacin 500 mg tablet 500 mg PO Q24H 10 Days Qty: 10 0RF Did you review [place] RE[employer]ATOR [place] for ALL controlled substances?: No Discussed opioids are addictive and Narcan is available by prescription or from pharmacy.: No Condition: Stable
--- NOTE | 2023-01-11 08:23 | RS.OTCNOTE ---
OT Case Note Date of Note: 01/07/23 Title: OT Case Note Note: OT tried to see patient this a.m. and patient was not able to stay awake.
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
== END 2023-01-08 16:01 | disposition hospice, home (50) | DRG 727 ==
LOC: ED 21:45 → SCU 21:45 → UNDODISOB 01-08 16:01
PROVIDERS: ADMIT Hospitalist; ATTEND Nurse Practitioner Family
DX: E78.5 Hyperlipidemia, unspecified; Z20.822 Contact with and (suspected) exposure to COVID-19; N41.0 Acute prostatitis; M54.50 Low back pain, unspecified; E11.9 Type 2 diabetes mellitus without complications; E53.8 Deficiency of other specified B group vitamins; J18.9 Pneumonia, unspecified organism; A41.9 Sepsis, unspecified organism; C78.00 Secondary malignant neoplasm of unspecified lung; K21.9 Gastro-esophageal reflux disease without esophagitis; R00.0 Tachycardia, unspecified; R41.82 Altered mental status, unspecified; E87.6 Hypokalemia; Z51.81 Encounter for therapeutic drug level monitoring; N39.0 Urinary tract infection, site not specified; C49.9 Malignant neoplasm of connective and soft tissue, unspecified; Z79.899 Other long term (current) drug therapy; Z91.81 History of falling; N17.9 Acute kidney failure, unspecified; N40.0 Benign prostatic hyperplasia without lower urinary tract symptoms; E86.0 Dehydration; M19.90 Unspecified osteoarthritis, unspecified site; Z79.82 Long term (current) use of aspirin; R31.9 Hematuria, unspecified

== ENCOUNTER 2023-01-15 14:20 | Inpatient (IN) ==
[2023-01-15 14:57] VITALS: BMI 26.8
[2023-01-15] MEDS ORDERED: ATROPINE SULFATE PFS IVP PRN (14:58)
[2023-01-15] MEDS ORDERED: NITROSTAT SL PRN (14:58)
[2023-01-15] MEDS: SODIUM CHLORIDE 1,000 ML IV SCH (15:14)
[2023-01-15 15:39] LABS: BASOPHILS % (AUTO) 0.2 % (0.0-3.0); EOSINOPHILS % (AUTO) 0.2 % (0.0-7.0); HEMATOCRIT 38.9 % (42.0-52.0); HEMOGLOBIN 13.3 g/dl (14.0-18.0); IMMATURE GRANULOCYTE # (AUTO) 0.1 (0.0-1.0); IMMATURE GRANULOCYTE % (AUTO) 0.6 % (0.0-5.0); LYMPHOCYTES # (AUTO) 2.7 K/uL (0.60-3.4); LYMPHOCYTES % (AUTO) 33.1 (10.0-50.0); MEAN CORPUSCULAR HGB CONC 34.2 (31.8-35.4); MEAN CORPUSCULAR VOLUME 90.7 fl (80.0-94.0); MONOCYTES # (AUTO) 0.8 K/uL (0.4-2.0); MONOCYTES % (AUTO) 9.7 (0-10); NEUTROPHILS # (AUTO) 4.6 K/ul (2.0-6.9); NEUTROPHILS % (AUTO) 56.2 % (42.2-75.2); PLATELET COUNT 142 10^3/uL (140-440); RDW COEFFICIENT OF VARIATION 13.6 % (11.6-14.8); RED BLOOD COUNT 4.29 10^6/ul (4.70-6.10); WHITE BLOOD COUNT 8.26 K/ul (4.2-10.2)
[2023-01-15 15:48] LABS: BILIRUBIN,URINE Negative (NEGATIVE); CLARITY,URINE Clear (CLEAR); COLOR,URINE Yellow (YELLOW); GLUCOSE, URINE (UA) Negative (NEGATIVE); KETONES,URINE Negative (NEGATIVE); LEUKOCYTE ESTERASE ,URINE Negative (NEGATIVE); NITRITE,URINE Negative (NEGATIVE); PROTEIN,URINE 2+ (NEGATIVE); URINE, BLOOD 2+ (NEGATIVE); UROBILINOGEN,URINE 0.2 (0.2)
[2023-01-15 15:51] LABS: ALANINE AMINOTRANSFERASE 174.6 U/L (0-50); ALBUMIN 3.47 g/dL (3.5-5.0); ALKALINE PHOSPHATASE 124.9 U/L (56-119); ASPARTATE AMINO TRANSFERASE 109.7 U/L (17-59); BILIRUBIN,TOTAL 0.73 mg/dL (0.2-1.3); BLOOD UREA NITROGEN 47.3 mg/dL (9-20); CALCIUM 7.79 mg/dL (8.4-10.2); CARBON DIOXIDE 27.3 mmol/L (22-30.0); CHLORIDE 107.3 mmol/L (98-107); CREATINE KINASE 93.2 U/L (55-170); CREATININE 3.21 mg/dL (0.60-1.10); GLUCOSE 125.2 mg/dL (74-106); POTASSIUM 3.03 mmol/L (3.5-5.1); SODIUM 141.3 mmol/L (134.5-145); TOTAL PROTEIN 6.67 g/dL (6.3-8.2)
[2023-01-15 15:53] LABS: SQUAMOUS EPITHELIAL CELL,UR 0-2 (0-5)
[2023-01-15 15:54] LABS: MUCUS,URINE TRACE (NOT PRESENT)
[2023-01-15 16:02] LABS: TROPONIN I 0.016 ng/ml (0.0000-0.120)
--- NOTE | 2023-01-15 16:34 | DI ---
EXAM: FRONTAL VIEW OF THE CHEST. HISTORY: Shortness of breath COMPARISON: 01/05/2023 FINDINGS: Cardiac silhouette is normal. No organized infiltrate/consolidation. Subtle haziness right lung compared to previous. Possible ear ly infiltrate or atelectasis. No visible effusion or pneumothorax. No acute osseous abnormality. IMPRESSION: 1. Subtle haziness right lung. Atelectasis versus early infiltrate.
[2023-01-15] MEDS: NEURONTIN PO SCH ×2 (16:43→20:23)
[2023-01-15] MEDS: FLOMAX PO SCH (16:43)
[2023-01-15] MEDS: FOLIC ACID PO SCH (16:43)
[2023-01-15] MEDS: LIPITOR PO SCH (16:43)
[2023-01-15] MEDS: PROTONIX PO SCH (16:44)
[2023-01-15] MEDS: NORCO 10-325 PO PRN (16:55)
[2023-01-15] MEDS: SODIUM CHLORIDE 500 ML IV SCH (17:44)
[2023-01-15] MEDS: K-DUR PO SCH (17:45)
[2023-01-15] MEDS: SINGULAIR PO SCH (20:23)
[2023-01-15] MEDS: NAMENDA PO SCH (20:24)
[2023-01-15 23:00] LABS: CREATINE KINASE 103.6 U/L (55-170)
[2023-01-15 23:13] LABS: TROPONIN I 0.02 ng/ml (0.0000-0.120)
[2023-01-16] MEDS: SODIUM CHLORIDE 1,000 ML IV SCH ×3 (01:09→14:32)
[2023-01-16] MEDS: NORCO 10-325 PO PRN ×2 (01:11→08:53)
[2023-01-16] MEDS: SODIUM CHLORIDE 500 ML IV SCH (03:36)
[2023-01-16 05:47] LABS: HBsAgSCREEN Negative (Negative); HCV ANTIBODY Non Reactive (Non Reactive); HEP A AB, IgM Negative (Negative); HEP B CORE Ab, IgM Negative (Negative)
[2023-01-16] MEDS: PROTONIX PO SCH ×2 (06:09→17:16)
[2023-01-16 07:06] LABS: BASOPHILS % (AUTO) 0.1 % (0.0-3.0); EOSINOPHILS # (AUTO) 0.1 K/ul (0.0-0.7); EOSINOPHILS % (AUTO) 0.8 % (0.0-7.0); HEMATOCRIT 36.4 % (42.0-52.0); HEMOGLOBIN 12.4 g/dl (14.0-18.0); IMMATURE GRANULOCYTE # (AUTO) 0.1 (0.0-1.0); IMMATURE GRANULOCYTE % (AUTO) 0.6 % (0.0-5.0); LYMPHOCYTES # (AUTO) 3.2 K/uL (0.60-3.4); LYMPHOCYTES % (AUTO) 38.6 (10.0-50.0); MEAN CORPUSCULAR HGB CONC 34.1 (31.8-35.4); MEAN CORPUSCULAR VOLUME 94.1 fl (80.0-94.0); MONOCYTES # (AUTO) 0.9 K/uL (0.4-2.0); MONOCYTES % (AUTO) 10.9 (0-10); PLATELET COUNT 143 10^3/uL (140-440); RED BLOOD COUNT 3.87 10^6/ul (4.70-6.10); WHITE BLOOD COUNT 8.26 K/ul (4.2-10.2)
[2023-01-16 07:25] LABS: ALANINE AMINOTRANSFERASE 150.6 U/L (0-50); ALBUMIN 2.86 g/dL (3.5-5.0); ALKALINE PHOSPHATASE 103.3 U/L (56-119); ASPARTATE AMINO TRANSFERASE 88.8 U/L (17-59); BILIRUBIN,TOTAL 0.81 mg/dL (0.2-1.3); BLOOD UREA NITROGEN 40.3 mg/dL (9-20); CALCIUM 7.54 mg/dL (8.4-10.2); CARBON DIOXIDE 25.8 mmol/L (22-30.0); CHLORIDE 112.8 mmol/L (98-107); CREATININE 2.63 mg/dL (0.60-1.10); GLUCOSE 111.5 mg/dL (74-106); POTASSIUM 3.27 mmol/L (3.5-5.1); TOTAL PROTEIN 5.84 g/dL (6.3-8.2)
[2023-01-16] MEDS: NEURONTIN PO SCH ×3 (08:43→21:04)
[2023-01-16] MEDS: NAMENDA PO SCH ×2 (08:43→21:04)
[2023-01-16] MEDS: FOLIC ACID PO SCH (08:43)
[2023-01-16] MEDS: FLOMAX PO SCH (08:43)
[2023-01-16] MEDS: K-DUR PO SCH ×2 (08:43→17:15)
[2023-01-16 11:13] LABS: PROSTATE SPECIFIC ANTIGEN SCRN 0.3 ng/mL (0.0-4.0)
--- NOTE | 2023-01-16 11:24 | HP ---
DATE OF SERVICE: 01/15/23 REASON FOR HOSPITALIZATION/HISTORY OF PRESENT ILLNESS: Weak and not eating, falling. PAST MEDICAL HISTORY/PAST SURGICAL HISTORY: Lower back pain Dementia Anemia GERD B12 deficiency Status post falls Weight loss Chronic kidney disease stage 3 Stable pulmonary nodules 08/27 Diabetes Mellitus type II Cataract removal Sarcoma with lung METS 2011-ALBRIGHT BPH Anemia COPD Bilateral sciatica Severe DJD Left carotid bruit Severe back pain Dyslipidemia Recurrent UTI Recurrent Prostatitis REVIEW OF SYSTEMS: CONSTITUTIONAL: No fever, Fatigue. HEENT: No sinus drainage, no sore throat. RESPIRATORY: No cough, no congestion. CARDIOVASCULAR: No atypical chest pain for coronary artery disease. No angina, CHF symptoms, palpitations or shortness of breath. GASTROINTESTINAL: No melena or abdominal pain. No GERD. GENITOURINARY: No hematuria, no prostatism, no polyuria. Dysuria. EXTENSION COURSE COUNSELOR: No blackout, Dizziness, no headache, no double vision. GAIT: Unsteady MUSCULOSKELETAL: No osteoarthritis pain, no joint swelling. ENDOCRINE: No weight loss, no weight gain. SKIN: Not dry, no rash. PSYCHIATRIC: Not anxious, no depression, no suicidal thoughts, no homicidal thoughts. SOCIAL HISTORY: Marital Status: . Tobacco Usage: No. MEDICATIONS: Aspirin 325mg PO daily Lipitor 40mg Po daily Protonix 40mg PO BID Montelukast 10mg Tamsulosin 0.4mg Hydrocodone/Acetaminophen 325mg PO QID PRN Alprazolam 0.5mg PO TID PRN Gabapentin 600mg PO TID Folic acid 1mg PO daily Memantine 28mg PO daily ALLERGIES: Doxycycline PHYSICAL EXAMINATION: GENERAL APPEARANCE: Oriented to person only. HEENT: Normal. NECK: No JVP, no bruits. RESPIRATORY: Decreased breath sounds. CARDIOVASCULAR: S1, S2, no S3, no murmur. No cyanosis, clubbing. No ascites. GI/ABDOMEN: No tenderness. Bowel sounds are active. EXTREMITIES: Trace bilateral edema, pulses +1, equal Stage II decubitus coccyx. EXTENSION COURSE COUNSELOR: Deep tendon reflexes, sensory, motor and gait all normal. RECTAL: 07/23 Shiben/PROSTATE: 08/26 0.24. ASSESSMENT: 1. Dehydration 2. Acute renal failure 3. Acute prostatitis 4. Lower back pain 5. Dementia 6. Anemia 7. GERD 8. B12 deficiency 9. Status post falls 10.Weight loss 11. Chronic kidney disease stage 3 12. Stable pulmonary nodules 08/27 13. Diabetes Mellitus type II 14. Cataract removal 15. Sarcoma with lung METS 2010-[facility]BRIGHT 16. BPH 17. Anemia 18. COPD 19. Bilateral sciatica 20. Severe DJD 21. Left carotid bruit 22. Severe back pain 23. Dyslipidemia 24. Recurrent UTI 25. Recurrent Prostatitis PLAN: 1. Routine telemetry orders 2. CBC and CMP now and daily 3. U/A with culture 4. Blood cultures times two 5. Normal saline IV at 75cc an hour 6. Fall precautions 7. Speech, PT/OT evaluate and treat 8. Regular diet 9. O2 at 1-2 liters PRN 10.Continue home medications. 11. Acute hepatitis panel 12.PSA 13. Three doses Amoxicillin, no medications TIME SPENT: More than 75 minutes. MTDD
--- NOTE | 2023-01-16 11:59 | RS.PTINEVL ---
Subjective Patient information Date of Evaluation: 01/16/23 Date of Arrival on Unit: 01/15/23 Admitted From:: Home Diagnosis: acute dehydration, s/p fall at home, acute renal failure Usual Living Arrangement: With Spouse Living Arrangement Comments: lives with spouse and son lives with them Home Environment: House, Stairs (few) and Rail Medical History: COPD, Dementia, Diabetes and Cancer (sarcoma w lung mets, ) Medical History Comments:: prostatitis, CKD stage 3, LBP, BPH LATEX ALLERGY?: No Surgical History Comments:: surgery to remove cancer Medications: see chart Subjective Information/ Patient Comments:: pt's son states pt was up without assist and fell at the front door. Pt states he is feeling Ok just a little sore. Level of function Abilities prior to this admission: prior to previous admission pt was independent with ADL's and amb without AD. Current Level of Function: Partially Dependent Current Equipment Used at Home: Rolling walker, wheelchair Pain Assessement Location back and hips: Description: Sharp and Aching Radiation Location: pt unable to rate pain Pain Behavior: Rubbing Site and Facial Grimacing Interventions Objective Patient Orientation: Person, Place, Time and Situation Current Interventions: IV's and Telemetry Range of Motion ROM Right Upper Extremity AROM: WFL's Left Upper Extremity AROM: WFL's Right Lower Extremity AROM: WFL's Left Lower Extremity AROM: WFL's Muscle Strength Muscle Strength Right Upper Extremity: Mild Weakness (grossly 4-/5, ) Left Upper Extremity: Mild Weakness (grossly 4-/5,) Right Lower Extremity: Mild Weakness (hip flex 4-/5, knee flex/ext 4/5, ankle DF/PF 4/5) Left Lower Extremity: Mild Weakness (hip flex 4-/5, knee flex/ext 4/5, ankle DF/PF 4/5) Sensation Sensation Right Upper Extremity: Impaired (some areas of n/t due to previous radiation) Left Upper Extremity: Intact/Normal Right Lower Extremity: Intact/Normal Left Lower Extremity: Intact/Normal Palpation Palpation Findings: None/Normal Balance Sitting Balance and Reactions Static Sitting Balance: Good Dynamic Sitting Balance: Fair (fair +) Standing Balance and Reactions Static Standing Balance: Poor Dynamic Standing Balance: Poor Standing Equilibrium Reactions: Delayed Left and Delayed Right Standing Protective Reactions: Delayed Left and Delayed Right Functional Mobility Bed Mobility Rolling R/L: Min Assist Supine to Sit: Min Assist, Mod Assist and 2 person assist Transfers Sit to Stand: Min Assist and 2 person assist Stand to Sit: Min Assist and 2 person assist Safety Awareness Safety Awareness: Poor JOHNIE INDEX SCORE: n/a Ambulation Ambulation Assistive Device Used: Rolling Walker Orthotic/Prosthetic Device: No Distance: 5-6 steps Assistance needed with Ambulation: Min Assist and 2 person assist Gait Deviations: Forward posture, Short stride and Deviates from path Ambulation Comments: pt with increased lat sway and deviation from path Factors Affecting Ambulation: Decreased Balance, Weakness, Decreased Safety, Cognitive Status and Limited Endurance Treatment time Time with patient Length of Evaluation: eval med Total treatment time: 21 Patient Education Education Patient Education: Activity Modification and Education of Plan of Care Teaching Recipient: Patient and Family Teaching Methods: Discussion and Demonstration Assessment Assessment Problem List:: Decreased level of function, Requires training/education, Decreased safety/Risk of falls, Weakness, Pain limits previous level of function and Cognitive status limits abilities Rehab Potential: Good Further Therapy Indicated?: Yes Candidate for Swing Bed for Therapy Services?: Feel pt may not be a candidate for swing bed due to pt was dc to hospice after last hosp stay. Evaluation Complexity: HISTORY: Medium, EXAM OF BODY SYSTEMS: Medium, CLINICAL PRESENTATION: Medium and CLINICAL DECISION MAKING: Medium Patient's Goal(s): to be able to walk and be stronger at home. Short Term Goals GOAL #1: pt demonstrate rolling and bridging independently. Goal to be met by: 01/18/23 GOAL #2: Transfer sup to/from sit CGA to min x 1 Goal to be met by: 01/18/23 GOAL #3: Transfer sit to/from stand CGA to min x 1 Goal to be met by: 01/18/23 GOAL #4: pt amb with rwx 50ft with CGA to min x 1. Goal to be met by: 01/18/23 GOAL #5: Improve BLE strength 4+/5 Goal to be met by: 01/18/23 Group Home Goals GOAL #1: Transfer sup to/from sit to/from stand SBA Goal to be met by: 01/21/23 GOAL #2: pt amb with rwx functional household distances with SBA Goal to be met by: 01/21/23 GOAL #3: Improve dyn stand balance fair Goal to be met by: 01/21/23 Plan Plan of Care: Therapeutic EX, Neuromuscular Re-Educ and Therapeutic Activity Other:: gait training Frequency of Treatment: 1-2 X day, as tolerated Duration of Treatment: 5 days Anticipated Discharge Destination: undetermined Treatment Diagnosis (ICD 10 Codes): falls R29.6, impaired balance R26.81, gait difficulty R26.2, muscle weakness M62.81 Has the Physician been added for Co-signature?: Yes
[2023-01-16] MEDS: LIPITOR PO SCH (12:03)
--- NOTE | 2023-01-16 13:24 | RS.BEDDYS ---
Subjective Date of Evaluation: 01/16/23 Diagnosis: Dehydration Current Level of Function: This is an 78 year old male whom lives with his in the home environment. He has reported symptoms with decreased appetite, weight loss, and GERD. The patient will be assessed at the bedside to determine safer and least constrictive diet. Current Diet: Regular diet; thin liquids Current Subjective/complaints:: The patient was upright in the recliner upon PARI MUTUEL CLERK entry. Family was at the bedside. Family reported they have not observed the patient with swallowing difficulty; however poor appetite has been evident. The patient reported that he has hx of swallowing difficulty with reflux symptoms, but 'no trouble lately." The patient was alert, cooperative and participated with all tasks. Medical History Comments:: pneumonia; UTI; DJD, COPD; dementia; DM2; weight loss; GERD Hx Home Medications: Refer to medications for complete list. Patient's Goals: None stated. Family wants to maintain nutritional intake. General Information General Denture Type: Full- Upper & Lower (fits loosely) Patient Orientation: Person, Place and Situation (given verbal prompts) Ability to Follow Directions: Good Oral Expression Ability: Mild Impairment (slow to respond to open-ended questions; required rephrasing occasionally) Oral-Facial Assessment Face Facial Symmetry: Symmetrical Dental/Labial Mouth Occlusion: Normal Lip Protrusion: Normal Lip Retraction: Normal Lingual Protrusion: Normal Retraction: Normal Tip Lateralization: Normal Tip Elevation: Normal Comments: Lingual surface was dry Palate and Pharynx Soft Palate Description: Normal Color Food Presentation Solids Food Presented: Pureed (Spoonful via PARI MUTUEL CLERK) Behaviors/Comments: Pt masticated puree texture and manipulated it several times prior to swallow initiation. No delay in swallow response. Two times swallow response. No wet vocal quality. No oral residue. No overt s/s of aspiration. Food Presented: Chopped (peach on spoon via PARI MUTUEL CLERK) Behaviors/Comments: Minimally prolonged mastication. Functional bolus coordination and formation. No delay in swallow response. Two times swallow response. No wet vocal quality. Oral residue in lateral sulcus, which cleared with a lingual sweep. No overt s/s of aspiration. Larger peaches were presented and pt had prolonged mastication and 2x cough response on peach juice during mastication process. Voicing clear post swallow response. Food Presented: Mechanical Soft (mora cracker via PARI MUTUEL CLERK.) Behaviors/Comments: Presented midline, pt took bite. Mastication process with moderately prolonged. Bolus formation and coordination was mildly affected secondary to dry mouth. Pt had delay in swallow response that did not result in coughing or throat clears. LE was functional. Pt required liquid wash two times with two times swallow responses to clear oral cavity residue. No overt s/s of aspiration. Food Presented: Regular (Meat with gravy on a fork via PARI MUTUEL CLERK.) Behaviors/Comments: PAR[employer] MUTUEL CLERK presented bite of meat texture smothered in gravy. The patient demonstrated severely prolonged mastication process up to 15 seconds. PARI MUT[employer]EL CLERK observed oral cavity and bolus; which was partially formed on lingual surface. Pt continued mastication process at least 15 more seconds. PARI MUTUEL CLERK suggested liquid wash. 1/2 of bolus cleared oral cavity. Pt utilized lingual sweep and cheek pressure to clear oral cavity and initiated second swallow of bolus. Pt cleared bolus and utilized a sip of thin liquids to clear all residue in oral cavity. No reflux was reported. No overt s/s of aspiration. No wet vocal quality. Liquids Liquid Presented: Thin (ice chips on spoon via PARI MUTUEL CLERK) Behaviors/Comments: PARI MUT[employer]EL CLERK presented ice chips. pt allowed to melt and then manipulated chips in oral cavity. 3x swallow response. LE palpated with functional movement for airway protection. Pt reported no difficulty with swallowing chips. No overt s/s of aspiration. No wet vocal quality. Liquid Presented: Thin (controlled cup via PARI MUTUEL CLERK) Behaviors/Comments: Pt took long consecutive drinks and small sips presented by PARI MUTUEL CLERK. He demonstrated no delay with swallow initiation. 1-2x swallow post drink. no wet vocal quality. No overt s/s of aspiration. Liquid Presented: [place] (Controlled cup via PARI MUTUEL CLERK) Behaviors/Comments: Pt completed two sips. No swallow delay observed or palpated. no wet vocal quality. no overt s/s of aspiration. Recommendations: Dysphagia Evaluation Dietary Recommendations: Regular (Meat texture needs extra gravy and small bites) and Thin Comments:: Pt did not demonstrate impulsive eating; taking large bites; or consecutive bites with residue building in oral cavity. PARI MUTUEL CLERK recommends pt utilize modified diet textures during snack time to reduce effortful mastication process and ensure adequate nutritional and caloric intake. Dysphagia Swallow Precautions/Strategies: Sitting Upright (90 deg), Double Swallow, Liquids from Cup, Small Bites and Sips and Alternate Liquids/Solids (If texture is dry and mastication is prolonged present small sips of liquids for a 'liquid wash".) Comments:: Due to loose dentures PARI MUTUEL CLERK recommends dentures removed post all PO intake and prior to laying flat in the bed. Pt/family to monitor alertness level with PO intake. If meal takes longer than 25 minutes, stop and rest; return to meal once rested. Summary Dysphagia Evaluation Summary: The patient presented with oral weakness that resulted in prolonged mastication process. Due to prolonged mastication, pt consumed small amount of food within extended meal duration. The patient has risks for decreasing caloric intake due to energy level consumed with mastication and swallowing regular diet texture. The patient has a poor appetite that is reduced by presentations of modified food textures. The family, pt and PARI MUTUEL CLERK agreed to continue regular diet texture with use of safe swallow and aspiration precautions. PAR[employer] MUTUEL CLERK recommends pt trial regular diet texture for meals and supplement with modified diet texture snacks. Dietitian may need to consult with pt and family for recommendations of increasing caloric intake with modified snacks. At this time, pt is recommend to trial regular diet texture with thin liquids; meal tray set-up; and 1:1 supervision to monitor pt's level of alertness ; family/staff to encourage PO intake and sips of liquids; oral care routine with dentures out of mouth post all PO intake; follow safe swallow and aspiration precautions strictly. Pt had minimal to no overt s/s of aspiration. He demonstrated cough with juice on peaches 2x. Pt demonstrated functional pharyngeal phase of swallowing. No further treatment is warranted. PARI MUTUEL CLERK provided family with list of safe swallow strategies and aspiration precautions; as well as educated on risks with regular diet texture. Further Therapy Indicated?: No Functional Reporting G Codes: n/a Severity Impairment Rationale: n/a Plan Duration of Treatment: One Time Treatment Frequency of Treatment: One time treatment Anticipated Discharge Destination: Home Treatment Code (1) Dysphagia: Code(s): R13.10 - Dysphagia, unspecified
--- NOTE | 2023-01-16 16:27 | RS.OTINEVL ---
Subjective Patient information Date of Evaluation: 01/16/23 Date of Arrival on Unit: 01/15/23 Admitted From:: Home Diagnosis: Pneumonia, dehydration PRECAUTIONS: Low BP , and unsteady gait. Usual Living Arrangement: With Spouse Living Arrangement Comments: lives with spouse and son lives with them Home Environment: House, Stairs (few) and Rail Medical History: COPD, Dementia, Diabetes and Cancer (sarcoma w lung mets, ) Medical History Comments:: prostatitis, CKD stage 3, LBP, BPH LATEX ALLERGY?: No Surgical History Comments:: surgery to remove cancer Medications: see chart Subjective Information/ Patient Comments:: "This arm doesn't work very well since my surgery." Level of function Prior to this admission, the patient could do the following:: Independent Selfcare, Independent ADL's and Independent Ambulation Abilities prior to this admission: Pt was able to walk and was not using a RW or adaptive equipment. Current Level of Function: Partially Dependent Current Equipment Used at Home: Rolling walker, wheelchair Pain Assessment Pain Pain Score: 3 Pain Location Body Site: Head Pain Aggravating Factors: Sitting Pain Alleviating Factors: Medication Interventions Objective Patient Orientation: Person and Situation Observation: Pt is weak with sit to stand and walking with RW. Pt has increased weakness since last hospital stay. Interventions ROM Right Upper Extremity AROM: Slight limitation Left Upper Extremity AROM: WFL's Strength Right Upper Extremity: Mild Weakness Left Upper Extremity: Mild Weakness Sensation Right Upper Extremity: Intact/Normal Left Upper Extremity: Intact/Normal Balance Sitting Balance Static Sitting Balance: Poor Dynamic Sitting Balance: Fair Standing Balance Static Standing Balance: Fair Dynamic Standing Balance: Fair ADL Skills Self Feeding Self Feeding: Set Up Only Grooming Grooming: Set Up Only Grooming Set-up: Sitting Bathing Bathing UE: Set Up Only Bathing LE: Mod Assist Bathing Set-up: Shower Dressing Dressing UE: Min Assist Dressing LE: Mod Assist Toilet Management Toilet Hygiene: Independent Toilet Clothing Management: Min Assist Functional Mobility Bed Mobility Scooting: Min Assist Supine to Sit: Mod Assist Sit to Supine: Min Assist Transfers Sit to Stand: Min Assist Stand to Sit: Min Assist and Verbal Cues Comments:: Pt did not follow verbal cues to reach back for the chair when completing standing to sit. Ambulation Weight Bearing Status: FWB Assistive Device Used: Rolling Walker Assistance needed with Ambulation: Min Assist and 1 person assist Comments:: Son reported that his dad was not using a RW or a cane in the home. Pt fell in the home when no one was awake. Safety Awareness Safety Awareness: Poor JOHNIE INDEX SCORE: . Additional Treatment Performed Time with patient Length of Evaluation: 25 Total treatment time: 25 Activities Do you enjoy playing games?: Yes Would you be interested in leaving your room for activities?: Yes Would you enjoy group activities?: Yes Do you have difficulty with your vision?: Yes Patient Interests:: Watching Television and Visiting/Socializing Patient Education Patient Education: Education of diagnosis, Body/Joint mechanics, Home Exercise Program, Home Safety, Activity Modification and Education of Plan of Care Teaching Recipient: Patient and Family Teaching Methods: Discussion and Demonstration Assessment Problem List:: Decreased level of function, Requires training/education, D ecreased safety/Risk of falls, Weakness and Pain limits previous level of function Rehab Potential: Good Further Therapy Indicated?: Yes Evaluation Complexity: HISTORY: Medium, EXAM OF BODY SYSTEMS: Medium and CLINICAL DECISION MAKING: Medium Patient's Goal(s): To be able to go home. Short Term Goals Goals GOAL 1: Pt to increase LUE to 4+/5. Goal to be met by: 01/21/23 GOAL 2: Pt to increase RUE AROM 50%. Goal to be met by: 01/21/23 GOAL 3: Pt to increase to CGA with sink level ADLS. Goal to be met by: 01/23/23 GOAL 4: Pt to increase dyn. std. bal. to F+. Goal to be met by: 01/10/23 Half-Way Goals GOAL 1: Pt to increase LUE strength to 5/5. Goal to be met by: 01/23/23 GOAL 2: Pt to increase dyn. std. bal. to G-. Goal to be met by: 01/23/23 GOAL 3: Pt to be (I) with sink level ADLS. Goal to be met by: 01/23/23 Plan Plan of Care: Therapeutic EX, Neuromuscular Re-Educ, Therapeutic Activity and Self-Care/Home Management Frequency of Treatment: 1-2 X day, as tolerated Duration of Treatment: 1 Week Anticipated Discharge Destination: Home Treatment Diagnosis (ICD 10 Codes): Weakness R53.1 Has the Physician been added for Co-signature?: Yes
[2023-01-16] MEDS: SINGULAIR PO SCH (21:04)
[2023-01-17] MEDS: SODIUM CHLORIDE 1,000 ML IV SCH ×4 (02:53→20:24)
[2023-01-17 05:25] LABS: BASOPHILS % (AUTO) 0.4 % (0.0-3.0); EOSINOPHILS # (AUTO) 0.1 K/ul (0.0-0.7); HEMATOCRIT 36.3 % (42.0-52.0); HEMOGLOBIN 12.1 g/dl (14.0-18.0); IMMATURE GRANULOCYTE % (AUTO) 0.4 % (0.0-5.0); LYMPHOCYTES # (AUTO) 3.4 K/uL (0.60-3.4); MEAN CORPUSCULAR HEMOGLOBIN 31.8 pg (27.0-31.0); MEAN CORPUSCULAR HGB CONC 33.3 (31.8-35.4); MEAN CORPUSCULAR VOLUME 95.5 fl (80.0-94.0); MONOCYTES # (AUTO) 0.9 K/uL (0.4-2.0); MONOCYTES % (AUTO) 10.8 (0-10); NEUTROPHILS # (AUTO) 3.5 K/ul (2.0-6.9); NEUTROPHILS % (AUTO) 44.4 % (42.2-75.2); PLATELET COUNT 168 10^3/uL (140-440); RDW COEFFICIENT OF VARIATION 13.9 % (11.6-14.8)
[2023-01-17 05:42] LABS: ALANINE AMINOTRANSFERASE 167.2 U/L (0-50); ALBUMIN 2.58 g/dL (3.5-5.0); ALKALINE PHOSPHATASE 100.7 U/L (56-119); ASPARTATE AMINO TRANSFERASE 109.3 U/L (17-59); BILIRUBIN,TOTAL 0.95 mg/dL (0.2-1.3); BLOOD UREA NITROGEN 29.8 mg/dL (9-20); CALCIUM 7.59 mg/dL (8.4-10.2); CARBON DIOXIDE 19.4 mmol/L (22-30.0); CHLORIDE 118.7 mmol/L (98-107); CREATININE 2.05 mg/dL (0.60-1.10); GLUCOSE 105.8 mg/dL (74-106); POTASSIUM 3.93 mmol/L (3.5-5.1); SODIUM 141.5 mmol/L (134.5-145); TOTAL PROTEIN 5.62 g/dL (6.3-8.2)
[2023-01-17] MEDS: PROTONIX PO SCH ×2 (05:44→16:26)
--- NOTE | 2023-01-17 09:21 | PCM.PROG ---
Attending Provider: ATTENDING PROVIDER: Dr. JOSE ANGEL FRANZ MD This patient is seen with Alicia Moore, Nurse Practitioner. DATE OF SERVICE: 01/17/23 SUBJECTIVE: This 78 year old /WHITE M was hospitalized 01/15/23. The patient is alert. Has increased confusion in the evening consistent with sundowners. Renal function is steadily improving. Liver enzymes up from yesterday. Appetite is not good. Urine culture is negative. REVIEW OF SYSTEMS: CONSTITUTIONAL: No night sweats. No fatigue, malaise, lethargy. No fever or chills. Weakness. HEENT: Eyes: No visual changes. No eye pain. No eye discharge. ENT: No runny nose. No epistaxis. No sinus pain. No odynophagia. No congestion. RESPIRATORY: No cough, no congestion. No hemoptysis. No shortness of breath. CARDIOVASCULAR: No angina symptoms. No CHF symptoms. No atypical chest pain for CAD. No palpitations. No orthopnea.. GASTROINTESTINAL: No abdominal pain. No nausea or vomiting. No diarrhea or constipation. No hematemesis. No hematochezia. GENITOURINARY: No urgency. No frequency. No dysuria. No hematuria. No obstructive symptoms. No discharge. No pain. No significant abnormal bleeding. MUSCULOSKELETAL: No musculoskeletal pain; no joint swelling. NEUROLOGICAL: Awake, alert, intermittent confusion. No headache. No neck pain. No syncope. No seizures. No dizziness. PSYCHIATRIC: Not anxious. No depression. No suicidal thoughts. No homicidal thoughts. SKIN: No rash. No lesions. No wounds. ENDOCRINE: No unexplained weight loss. No weight gain. HEMATOLOGIC/LYMPHATIC: No anemia. No purpura. No petechiae. No prolonged or excessive bleeding. No palpable lymph nodes. PHYSICAL EXAMINATION: GENERAL: The patient is awake, alert and oriented to person only, lyingin bed in no distress. VITAL SIGNS: Temperature 98 F, Pulse 92, Respiratory Rate 15, BP 162/86, Pulse Ox 98% HEENT: Head normocephalic, atraumatic. Eyes: Extraocular muscles are intact. Pupils are equal, round and reactive to light and accommodation. Ears: No lesions. Nose appeared normal. Throat: No exudate or erythema. NECK: Supple. No JVD, no carotid bruit. No lymphadenopathy or thyromegaly. LUNGS: Diminished breath sounds. Clear to auscultation. Percussion note normal. Chest symmetrical. HEART: S1, S2, no S3. No murmurs. No cyanosis or clubbing. No ascites. Pulses: Dorsalis pedis and posterior tibial pulses +1 to +2 both sides. ABDOMEN: Soft. Non-tender. Bowel sounds active. No CVA tenderness. No mass felt. EXTREMITIES: No edema. Full range of motion of all extremities, equal. NEUROLOGIC: No focal deficit. Cranial nerves II through XII are grossly intact. No headache. No double vision. SKIN: Not dry. Intact. Turgor-normal. LYMPHATIC: No palpable lymph nodes/no lymphedema. MUSCULOSKELETAL: Normal joints with no swelling. Muscle tone is normal. LAB REVIEW: 01/17/23 05:20 01/17/23 05:20 01/17/23 05:20: WBC 7.90, RBC 3.80 L, Hgb 12.1 L, Hct 36.3 L, MCV 95.5 H, MCH 31.8 H, MCHC 33.3, RDW Coeff of Mague 13.9, Plt Count 168, Immature Gran % (Auto) 0.4, Neut % (Auto) 44.4, Lymph % (Auto) 43.0, [place] % (Auto) 10.8 H, Eos % (Auto) 1.0, Baso % (Auto) 0.4, Neut # (Auto) 3.5, Lymph # (Auto) 3.4, [place] # (Auto) 0.9, Eos # (Auto) 0.1, Baso # (Auto) 0.0, Immature Gran # (Auto) 0.0, Sodium 141.5, Potassium 3.93, Chloride 118.7 H, Carbon Dioxide 19.4 L, Anion Gap 7.33, BUN 29.8 H, Creatinine 2.05 H D, Estimated GFR (MDRD) 31.00, BUN/Creatinine Ratio 14.53, Glucose 105.8, Calcium 7.59 L, Total Bilirubin 0.95, AST 109.3 H, ALT 167.2 H, Alkaline Phosphatase 100.7, Total Protein 5.62 L, Albumin 2.58 L, Globulin 3.04, Albumin/Globulin Ratio 0.84 01/15/23 15:28: Prostate Specific Ag 0.3 ASSESSMENT: Please see below. 1. Acute renal failure, improving 2. Dehydration, improving 3. Elevated liver function 4. Dementia 5. Hypertension PLAN: 1. Decreased IV fluids to 50cc 2. Ultrasound of the liver 3. Hepatitis panel pending. Plan and coordination of the patient's care discussed in the presence of [employer] Supervisor and nurse. SCRIBED BY: Analisa NATARAJANist scribed while in presence of service performed by Alicia Moore APRN on 01/17/23 ([id number]) Coding (1) Dysphagia: Status: Acute Code(s): R13.10 - Dysphagia, unspecified SNOMED Code(s): 11865714
[2023-01-17] MEDS: K-DUR PO SCH ×2 (09:23→16:25)
[2023-01-17] MEDS: NEURONTIN PO SCH ×3 (09:23→20:23)
[2023-01-17] MEDS: FLOMAX PO SCH (09:23)
[2023-01-17] MEDS: NAMENDA PO SCH ×2 (09:23→20:23)
[2023-01-17] MEDS: FOLIC ACID PO SCH (09:23)
--- NOTE | 2023-01-17 09:24 | US ---
EXAM: LIMITED ABDOMINAL ULTRASOUND HISTORY: Elevated liver enzymes TECHNIQUE: Elizondo scale and color Doppler imaging was performed. FINDINGS: There is suboptimal visualization of the liver due to an extremely gaseous abdomen. The vi sualized liver is of increased echogenicity Consider CT evaluation IMPRESSION: Fatty liver. Nondiagnostic examination.
[2023-01-17] MEDS: MIRALAX PO SCH (11:43)
[2023-01-17] MEDS: LEXAPRO PO SCH (11:43)
[2023-01-17] MEDS: COLACE PO SCH ×2 (11:44→20:23)
--- NOTE | 2023-01-17 13:38 | PN ---
DATE OF SERVICE: 01/16/23 SUBJECTIVE: 78 year old white male hospitalized with dehydration, acute renal failure, acute prostatitis resolving. The patient's condition seems to have improved. According to him he is feeling a lot better. The appetite has improved. The son is present in the room and he is very happy with the patient's progress. REVIEW OF SYSTEMS: CONSTITUTIONAL: No night sweats. No fatigue, malaise, lethargy. No fever or chills. HEENT: Eyes: No visual changes. No eye pain. No eye discharge. ENT: No runny nose. No epistaxis. No sinus pain. No sore throat. No odynophagia. No congestion. RESPIRATORY: No cough, no congestion. No hemoptysis. No shortness of breath. CARDIOVASCULAR: No angina symptoms. No CHF symptoms. No atypical chest pain for CAD. No palpitations. No PND. No orthopnea. GASTROINTESTINAL: No abdominal pain. No nausea or vomiting. No diarrhea or constipation. No hematemesis. No hematochezia. Appetite seems to be improving. GENITOURINARY: No urgency. No frequency. No dysuria. No hematuria. No obstructive symptoms. No discharge. No pain. No significant abnormal bleeding. MUSCULOSKELETAL: No musculoskeletal pain; no joint swelling. NEUROLOGICAL: No headache. No neck pain. No syncope. No seizures. No dizziness. PSYCHIATRIC: Not anxious. No depression. No suicidal thoughts. No homicidal thoughts. SKIN: No rash. No lesions. No wounds. ENDOCRINE: No unexplained weight loss. No weight gain. HEMATOLOGIC/LYMPHATIC: No anemia. No purpura. No petechiae. No prolonged or excessive bleeding. No palpable lymph nodes. PHYSICAL EXAMINATION: VITAL SIGNS: Temperature 97.9, pulse 90, respiratory rate 13, blood pressure 128/72 and pulse ox 98%. HEENT: Head normocephalic, atraumatic. Eyes: Extraocular muscles are intact. Pupils are equal, round and reactive to light and accommodation. Ears: No lesions. Nose appeared normal. Throat: No exudate or erythema. NECK: Supple. No JVD, no carotid bruit. No lymphadenopathy or thyromegaly. LUNGS: Decreased breath sounds but clear to auscultation. Percussion note normal. Chest symmetrical. HEART: S1, S2, no S3. No murmurs. No cyanosis or clubbing. No ascites. Pulses: Dorsalis pedis and posterior tibial pulses +1 to +2 bilaterally. ABDOMEN: Soft. Nontender. Bowel sounds active. No CVA tenderness. No mass felt. EXTREMITIES: No edema. Full range of motion of all extremities, equal. NEUROLOGIC: No focal deficit. Cranial nerves II through XII are grossly intact. No headache. No double vision. SKIN: Not dry. Intact. Turgor - normal. LYMPHATIC: No palpable lymph nodes/no lymphedema. MUSCULOSKELETAL: Normal joints with no swelling. Muscle tone is normal. LABS: hgb 12.4, hct 36, WBC 8,200 normal differential, creatinine 2.6, BUN 40, potassium 3.2. ALT 150 which is better than yesterday and AST 88 which is better than yesterday. GFR from 19 now is 24 cc per minute. ASSESSMENT: 1. Acute renal failure 2. Hypokalemia 3. Hepatitis etiology unknown 4. Recent history of UTI versus prostatitis PLAN: 1. Hydrate the patient with IV fluids 2. Watch for fluid overload 3. Discontinue Statin 4. Continue to monitor CBC and CMP 5. He is feeling better, he was told that very likely we don't see any cancer anywhere so far and he is happy with that news. CONDITION: Improving. TIME SPENT: More than 35 minutes. Plan and coordination of the patient's care discussed in the presence of nurse. MIYA
[2023-01-17] MEDS: SINGULAIR PO SCH (20:23)
[2023-01-18 05:26] LABS: BASOPHILS % (AUTO) 0.1 % (0.0-3.0); EOSINOPHILS % (AUTO) 0.5 % (0.0-7.0); HEMATOCRIT 38.2 % (42.0-52.0); HEMOGLOBIN 12.7 g/dl (14.0-18.0); IMMATURE GRANULOCYTE % (AUTO) 0.5 % (0.0-5.0); LYMPHOCYTES # (AUTO) 3.7 K/uL (0.60-3.4); LYMPHOCYTES % (AUTO) 43.3 (10.0-50.0); MEAN CORPUSCULAR HEMOGLOBIN 31.5 pg (27.0-31.0); MEAN CORPUSCULAR HGB CONC 33.2 (31.8-35.4); MEAN CORPUSCULAR VOLUME 94.8 fl (80.0-94.0); MONOCYTES # (AUTO) 0.8 K/uL (0.4-2.0); MONOCYTES % (AUTO) 9.4 (0-10); NEUTROPHILS % (AUTO) 46.2 % (42.2-75.2); PLATELET COUNT 169 10^3/uL (140-440); RDW COEFFICIENT OF VARIATION 13.7 % (11.6-14.8); RED BLOOD COUNT 4.03 10^6/ul (4.70-6.10); WHITE BLOOD COUNT 8.53 K/ul (4.2-10.2)
[2023-01-18 05:37] LABS: ALANINE AMINOTRANSFERASE 161.8 U/L (0-50); ALBUMIN 3.01 g/dL (3.5-5.0); ALKALINE PHOSPHATASE 120.9 U/L (56-119); ASPARTATE AMINO TRANSFERASE 93.4 U/L (17-59); BILIRUBIN,TOTAL 0.88 mg/dL (0.2-1.3); BLOOD UREA NITROGEN 24.6 mg/dL (9-20); CALCIUM 7.89 mg/dL (8.4-10.2); CARBON DIOXIDE 24.5 mmol/L (22-30.0); CHLORIDE 117.7 mmol/L (98-107); CREATININE 1.94 mg/dL (0.60-1.10); GLUCOSE 105.6 mg/dL (74-106); POTASSIUM 4.5 mmol/L (3.5-5.1); SODIUM 143.2 mmol/L (134.5-145); TOTAL PROTEIN 6.08 g/dL (6.3-8.2)
[2023-01-18] MEDS: PROTONIX PO SCH ×2 (05:50→17:47)
[2023-01-18] MEDS ORDERED: MIRALAX PO SCH (09:00)
[2023-01-18] MEDS: FOLIC ACID PO SCH (09:11)
[2023-01-18] MEDS: LEXAPRO PO SCH (09:11)
[2023-01-18] MEDS: NAMENDA PO SCH ×2 (09:12→20:33)
[2023-01-18] MEDS: NEURONTIN PO SCH ×3 (09:12→20:34)
[2023-01-18] MEDS: FLOMAX PO SCH (09:12)
[2023-01-18] MEDS: COLACE PO SCH ×2 (09:12→20:33)
[2023-01-18] MEDS: K-DUR PO SCH ×2 (09:12→17:47)
[2023-01-18] MEDS: MIRALAX PO SCH (09:13)
[2023-01-18] MEDS: SODIUM CHLORIDE 1,000 ML IV SCH (13:49)
[2023-01-18] MEDS: SINGULAIR PO SCH (20:34)
[2023-01-19] MEDS: TYLENOL PO PRN (02:01)
[2023-01-19 05:48] LABS: BASOPHILS % (AUTO) 0.1 % (0.0-3.0); HEMOGLOBIN 11.6 g/dl (14.0-18.0); IMMATURE GRANULOCYTE % (AUTO) 0.5 % (0.0-5.0); LYMPHOCYTES # (AUTO) 1.2 K/uL (0.60-3.4); LYMPHOCYTES % (AUTO) 13.8 (10.0-50.0); MEAN CORPUSCULAR HEMOGLOBIN 31.9 pg (27.0-31.0); MEAN CORPUSCULAR HGB CONC 34.1 (31.8-35.4); MEAN CORPUSCULAR VOLUME 93.4 fl (80.0-94.0); MONOCYTES # (AUTO) 0.5 K/uL (0.4-2.0); MONOCYTES % (AUTO) 5.8 (0-10); NEUTROPHILS # (AUTO) 6.7 K/ul (2.0-6.9); NEUTROPHILS % (AUTO) 79.8 % (42.2-75.2); PLATELET COUNT 134 10^3/uL (140-440); RDW COEFFICIENT OF VARIATION 13.7 % (11.6-14.8); RED BLOOD COUNT 3.64 10^6/ul (4.70-6.10)
[2023-01-19] MEDS: PROTONIX PO SCH ×2 (05:52→16:02)
[2023-01-19 06:04] LABS: ALANINE AMINOTRANSFERASE 123.3 U/L (0-50); ALBUMIN 2.77 g/dL (3.5-5.0); ALKALINE PHOSPHATASE 122.7 U/L (56-119); ASPARTATE AMINO TRANSFERASE 68.5 U/L (17-59); BILIRUBIN,TOTAL 0.77 mg/dL (0.2-1.3); BLOOD UREA NITROGEN 21.4 mg/dL (9-20); CALCIUM 7.68 mg/dL (8.4-10.2); CARBON DIOXIDE 23.5 mmol/L (22-30.0); CHLORIDE 117.7 mmol/L (98-107); CREATININE 2.06 mg/dL (0.60-1.10); GLUCOSE 115.8 mg/dL (74-106); POTASSIUM 4.99 mmol/L (3.5-5.1); SODIUM 143.7 mmol/L (134.5-145); TOTAL PROTEIN 5.88 g/dL (6.3-8.2)
[2023-01-19] MEDS: MIRALAX PO SCH (08:26)
[2023-01-19] MEDS: FLOMAX PO SCH (08:26)
[2023-01-19] MEDS: NAMENDA PO SCH ×2 (08:26→20:36)
[2023-01-19] MEDS: LEXAPRO PO SCH (08:26)
[2023-01-19] MEDS: COLACE PO SCH ×2 (08:26→20:36)
[2023-01-19] MEDS: FOLIC ACID PO SCH (08:26)
[2023-01-19] MEDS: NEURONTIN PO SCH ×3 (08:26→20:36)
[2023-01-19] MEDS: K-DUR PO SCH ×2 (08:27→16:02)
[2023-01-19] MEDS: SODIUM CHLORIDE 1,000 ML IV SCH (09:29)
[2023-01-19] MEDS: SINGULAIR PO SCH (20:36)
[2023-01-19] MEDS: NORCO 10-325 PO PRN (20:36)
[2023-01-20 05:17] LABS: BASOPHILS % (AUTO) 0.3 % (0.0-3.0); HEMATOCRIT 41.3 % (42.0-52.0); HEMOGLOBIN 13.2 g/dl (14.0-18.0); IMMATURE GRANULOCYTE % (AUTO) 0.3 % (0.0-5.0); LYMPHOCYTES % (AUTO) 20.9 (10.0-50.0); MEAN CORPUSCULAR HEMOGLOBIN 31.2 pg (27.0-31.0); MEAN CORPUSCULAR VOLUME 97.6 fl (80.0-94.0); MONOCYTES # (AUTO) 0.5 K/uL (0.4-2.0); MONOCYTES % (AUTO) 5.3 (0-10); NEUTROPHILS # (AUTO) 7.1 K/ul (2.0-6.9); NEUTROPHILS % (AUTO) 73.2 % (42.2-75.2); PLATELET COUNT 97 10^3/uL (140-440); RDW COEFFICIENT OF VARIATION 13.8 % (11.6-14.8); RED BLOOD COUNT 4.23 10^6/ul (4.70-6.10); WHITE BLOOD COUNT 9.65 K/ul (4.2-10.2)
[2023-01-20 05:28] LABS: ALANINE AMINOTRANSFERASE 104.9 U/L (0-50); ALBUMIN 3.09 g/dL (3.5-5.0); ALKALINE PHOSPHATASE 130.7 U/L (56-119); BILIRUBIN,TOTAL 0.83 mg/dL (0.2-1.3); BLOOD UREA NITROGEN 21.2 mg/dL (9-20); CALCIUM 7.97 mg/dL (8.4-10.2); CARBON DIOXIDE 23.8 mmol/L (22-30.0); CHLORIDE 113.1 mmol/L (98-107); CREATININE 1.9 mg/dL (0.60-1.10); GLUCOSE 107.9 mg/dL (74-106); POTASSIUM 4.31 mmol/L (3.5-5.1); SODIUM 141.7 mmol/L (134.5-145); TOTAL PROTEIN 6.47 g/dL (6.3-8.2)
[2023-01-20] MEDS: PROTONIX PO SCH ×2 (05:48→16:29)
[2023-01-20] MEDS: SODIUM CHLORIDE 1,000 ML IV SCH (05:49)
[2023-01-20] MEDS: K-DUR PO SCH ×2 (08:50→16:29)
[2023-01-20] MEDS: MIRALAX PO SCH (08:50)
[2023-01-20] MEDS: COLACE PO SCH ×2 (08:50→20:51)
[2023-01-20] MEDS: TYLENOL PO PRN (08:50)
[2023-01-20] MEDS: FOLIC ACID PO SCH (08:50)
[2023-01-20] MEDS: NEURONTIN PO SCH ×3 (08:50→20:51)
[2023-01-20] MEDS: FLOMAX PO SCH ×2 (08:51→20:51)
[2023-01-20] MEDS: NAMENDA PO SCH ×2 (08:51→20:51)
[2023-01-20] MEDS: LEXAPRO PO SCH (08:51)
[2023-01-20] MEDS ORDERED: LEVAQUIN 500 MG/100 ML D5W 500 MG/100 ML BAG IV SCH (09:00)
[2023-01-20] MEDS ORDERED: VALIUM SYRINGE IVP ONE (09:05)
[2023-01-20] MEDS ORDERED: KEPPRA IV ONE ×2 (09:06→22:22)
[2023-01-20] MEDS ORDERED: SODIUM CHLORIDE IV ONE ×2 (09:06→22:22)
[2023-01-20] MEDS: NORCO 10-325 PO PRN (20:51)
[2023-01-20] MEDS: SINGULAIR PO SCH (20:51)
[2023-01-21] MEDS: SODIUM CHLORIDE 1,000 ML IV SCH ×3 (04:41→20:45)
[2023-01-21 05:20] LABS: BASOPHILS % (AUTO) 0.1 % (0.0-3.0); HEMATOCRIT 36.2 % (42.0-52.0); IMMATURE GRANULOCYTE % (AUTO) 0.5 % (0.0-5.0); LYMPHOCYTES # (AUTO) 2.1 K/uL (0.60-3.4); LYMPHOCYTES % (AUTO) 26.4 (10.0-50.0); MEAN CORPUSCULAR HEMOGLOBIN 31.5 pg (27.0-31.0); MEAN CORPUSCULAR HGB CONC 33.1 (31.8-35.4); MONOCYTES # (AUTO) 0.5 K/uL (0.4-2.0); MONOCYTES % (AUTO) 6.6 (0-10); NEUTROPHILS # (AUTO) 5.3 K/ul (2.0-6.9); NEUTROPHILS % (AUTO) 66.4 % (42.2-75.2); PLATELET COUNT 67 10^3/uL (140-440); RDW COEFFICIENT OF VARIATION 13.8 % (11.6-14.8); RED BLOOD COUNT 3.81 10^6/ul (4.70-6.10); WHITE BLOOD COUNT 8.04 K/ul (4.2-10.2)
[2023-01-21 05:34] LABS: ALANINE AMINOTRANSFERASE 122.9 U/L (0-50); ALBUMIN 2.62 g/dL (3.5-5.0); ASPARTATE AMINO TRANSFERASE 114.1 U/L (17-59); BILIRUBIN,TOTAL 0.79 mg/dL (0.2-1.3); BLOOD UREA NITROGEN 28.7 mg/dL (9-20); CALCIUM 7.57 mg/dL (8.4-10.2); CARBON DIOXIDE 23.6 mmol/L (22-30.0); CHLORIDE 113.7 mmol/L (98-107); CREATININE 2.43 mg/dL (0.60-1.10); GLUCOSE 114.1 mg/dL (74-106); POTASSIUM 4.1 mmol/L (3.5-5.1); SODIUM 142.1 mmol/L (134.5-145); TOTAL PROTEIN 5.98 g/dL (6.3-8.2)
[2023-01-21] MEDS: PROTONIX PO SCH ×2 (06:44→17:52)
[2023-01-21] MEDS: NEURONTIN PO SCH ×3 (08:49→20:45)
[2023-01-21] MEDS: COLACE PO SCH ×2 (08:50→20:45)
[2023-01-21] MEDS: NAMENDA PO SCH ×2 (08:50→20:45)
--- NOTE | 2023-01-21 08:50 | PCM.PROG ---
Attending Provider: ATTENDING PROVIDER: Dr. JOSE ANGEL FRANZ MD This patient is seen with Alicia Moore, Nurse Practitioner. DATE OF SERVICE: 01/21/23 SUBJECTIVE: This 78 year old /WHITE M was hospitalized 01/15/23. Plt count slightly lower at 67,000. The patient is not eating well. No fever. Being given 250mg Levaquin today. Liver enzymes were slightly elevated. Renal function is slightly worse. REVIEW OF SYSTEMS: CONSTITUTIONAL: No night sweats. No fatigue, malaise, lethargy. No fever or chills. Weakness. HEENT: Eyes: No visual changes. No eye pain. No eye discharge. ENT: No runny nose. No epistaxis. No sinus pain. No odynophagia. No congestion. RESPIRATORY: No cough, no congestion. No hemoptysis. No shortness of breath. CARDIOVASCULAR: No angina symptoms. No CHF symptoms. No atypical chest pain for CAD. No palpitations. No orthopnea.. GASTROINTESTINAL: No abdominal pain. No nausea or vomiting. No diarrhea or constipation. No hematemesis. No hematochezia. GENITOURINARY: No urgency. No frequency. No dysuria. No hematuria. No obstructive symptoms. No discharge. No pain. No significant abnormal bleeding. MUSCULOSKELETAL: No musculoskeletal pain; no joint swelling. NEUROLOGICAL: Awake, alert, Intermittent confusion. No headache. No neck pain. No syncope. No seizures. No dizziness. PSYCHIATRIC: Not anxious. No depression. No suicidal thoughts. No homicidal thoughts. SKIN: No rash. No lesions. No wounds. ENDOCRINE: No unexplained weight loss. No weight gain. HEMATOLOGIC/LYMPHATIC: No anemia. No purpura. No petechiae. No prolonged or ex cessive bleeding. No palpable lymph nodes. PHYSICAL EXAMINATION: GENERAL: The patient is awake, alert and oriented to person only, lying in bed in no distress. VITAL SIGNS: Temperature 97.5 F, Pulse 82, Respiratory Rate 18, BP 137/77, Pulse Ox 95% HEENT: Head normocephalic, atraumatic. Eyes: Extraocular muscles are intact. Pupils are equal, round and reactive to light and accommodation. Ears: No lesions. Nose appeared normal. Throat: No exudate or erythema. NECK: Supple. No JVD, no carotid bruit. No lymphadenopathy or thyromegaly. LUNGS: Diminished breath sounds. Clear to auscultation. Percussion note normal. Chest symmetrical. HEART: S1, S2, no S3. No murmurs. No cyanosis or clubbing. No ascites. Pulses: Dorsalis pedis and posterior tibial pulses +1 to +2 both sides. ABDOMEN: Soft. Non-tender. Bowel sounds active. No CVA tenderness. No mass felt. EXTREMITIES: No edema. Full range of motion of all extremities, equal. NEUROLOGIC: No focal deficit. Cranial nerves II through XII are grossly intact. No headache. No double vision. SKIN: Not dry. Intact. Turgor-normal. LYMPHATIC: No palpable lymph nodes/no lymphedema. MUSCULOSKELETAL: Normal joints with no swelling. Muscle tone is normal. LAB REVIEW: 01/21/23 05:14 01/21/23 05:14 01/21/23 05:14: WBC 8.04, RBC 3.81 L, Hgb 12.0 L, Hct 36.2 L, MCV 95.0 H, MCH 31.5 H, MCHC 33.1, RDW Coeff of Mague 13.8, Plt Count 67 L D, Immature Gran % (Auto) 0.5, Neut % (Auto) 66.4, Lymph % (Auto) 26.4, Foard % (Auto) 6.6, Eos % (Auto) 0.0, Baso % (Auto) 0.1, Neut # (Auto) 5.3, Lymph # (Auto) 2.1, Foard # (Auto) 0.5, Eos # (Auto) 0.0, Baso # (Auto) 0.0, Immature Gran # (Auto) 0.0, Sodium 142.1, Potassium 4.10, Chloride 113.7 H, Carbon Dioxide 23.6, Anion Gap 8.90, BUN 28.7 H, Creatinine 2.43 H D, Estimated GFR (MDRD) 26.00, BUN/Creatinine Ratio 11.81, Glucose 114.1 H, Calcium 7.57 L, Total Bilirubin 0.7 9, AST 114.1 H D, ALT 122.9 H, Alkaline Phosphatase 127.0 H, Total Protein 5.98 L, Albumin 2.62 L, Globulin 3.36, Albumin/Globulin Ratio 0.77 ASSESSMENT: Please see below. 1. Acute renal failure 2. Thrombocytopenia 3. Elevate liver function 4. Fever PLAN: 1. Continue Levaquin 250mg 2. Continue iv fluids Plan and coordination of the patient's care discussed in the presence of Java [employer] Developer and nurse. SCRIBED BY: Mary Ann NATARAJAN scribed while in presence of service performed by Alicia Moore APRN on 01/21/23 ([id number]) Coding (1) Dysphagia: Status: Acute Code(s): R13.10 - Dysphagia, unspecified SNOMED Code(s): 63876405
[2023-01-21] MEDS: K-DUR PO SCH ×2 (08:51→17:53)
[2023-01-21] MEDS: LEXAPRO PO SCH (08:52)
[2023-01-21] MEDS: FLOMAX PO SCH ×2 (08:52→20:46)
[2023-01-21] MEDS: FOLIC ACID PO SCH (08:52)
[2023-01-21] MEDS: MIRALAX PO SCH (08:54)
[2023-01-21] MEDS: KEPPRA IV SCH ×2 (08:56→20:42)
[2023-01-21] MEDS: SODIUM CHLORIDE IV SCH ×2 (08:56→20:42)
[2023-01-21] MEDS ORDERED: LEVAQUIN 250 MG/50 ML D5W 250 MG/50 ML BAG IV SCH (09:00)
--- NOTE | 2023-01-21 09:22 | PN ---
DATE OF SERVICE: 01/17/23 SUBJECTIVE: The patient was seen and examined with the Nurse Practitioner. His kidney functions have improved. He looks somewhat. We are going to start him on Lexapro 5mg daily. Encouraged him to eat. Mental status definitely has improved. Liver enzymes are better. TIME SPENT: More than 35 minutes. Plan and coordination of the patient's care discussed in the presence of nurse. MIYA
[2023-01-21] MEDS: NORCO 10-325 PO PRN ×2 (10:05→18:50)
--- NOTE | 2023-01-21 15:05 | PN ---
DATE OF SERVICE: 01/18/23 SUBJECTIVE: 78 year old white male hospitalized with renal failure and dehydration. Patient's condition seems to be improving. His kidney function is 1.9 creatinine, BUN 24; much better than on admission. He more or less has improved some. He can walk with help. REVIEW OF SYSTEMS: CONSTITUTIONAL: No night sweats. No fatigue, malaise, lethargy. No fever or chills. HEENT: Eyes: No visual changes. No eye pain. No eye discharge. ENT: No runny nose. No epistaxis. No sinus pain. No sore throat. No odynophagia. No congestion. RESPIRATORY: Shortness of breath on exertion. CARDIOVASCULAR: No chest pain. No palpitations. No PND. No orthopnea. GASTROINTESTINAL: No abdominal pain. No nausea or vomiting. No diarrhea or constipation. No hematemesis. No hematochezia. GENITOURINARY: No urgency. No frequency. No dysuria. No hematuria. No obstructive symptoms. No discharge. No pain. No significant abnormal bleeding. MUSCULOSKELETAL: No musculoskeletal pain; no joint swelling. NEUROLOGICAL: No headache. No neck pain. No syncope. No seizures. No dizziness. PSYCHIATRIC: Not anxious. No depression. No suicidal thoughts. No homicidal thoughts. SKIN: No rash. No lesions. No wounds. ENDOCRINE: No unexplained weight loss. No weight gain. HEMATOLOGIC/LYMPHATIC: No anemia. No purpura. No petechiae. No prolonged or excessive bleeding. No palpable lymph nodes. PHYSICAL EXAMINATION: GENERAL: The patient is in no distress. VITAL SIGNS: Temperature 97.1, pulse 88, respirations 20, blood pressure 137/94, pulse ox 96%. HEENT: Head normocephalic, atraumatic. Eyes: Extraocular muscles are intact. Pupils are equal, round and reactive to light and accommodation. Ears: No lesions. Nose appeared normal. Throat: No exudate or erythema. NECK: Supple. LUNGS: Decreased breath sounds but clear. HEART: S1, S2, no S3. ABDOMEN: Soft. EXTREMITIES: No pedal edema. NEUROLOGIC: No focal deficit. Cranial nerves II through XII are grossly intact. No headache. No double vision. SKIN: Not dry. Intact. Turgor - normal. LYMPHATIC: No palpable lymph nodes/no lymphedema. MUSCULOSKELETAL: Normal joints with no swelling. Muscle tone is normal. LABS: Hemoglobin 12.7, hematocrit 38, WBC 6,500, normal differential, creatinine 1.9, BUN 24, potassium 4.5. Liver functions or more or less steady, better than yesterday. ALT/AST down to 161 and 93 from 167 and 109 from previous day respectively. ASSESSMENT: Acute renal failure seems to be resolving. PLAN: 1. Continue IV fluids. 2. Continue to encourage patient to eat. TIME SPENT: More than 35 minutes. Plan and coordination of the patient's care discussed in the presence of nurse. MIYA
--- NOTE | 2023-01-21 15:20 | PN ---
DATE OF SERVICE: 01/19/23 SUBJECTIVE: 78 year old white male hospitalized with acute renal failure. Patient's kidney functions have improved but now steady at 2 with BUN of 21. He says that he is feeling better. His diet is improving some but still is unable to get up on his own; he requires help. REVIEW OF SYSTEMS: CONSTITUTIONAL: No night sweats. No fatigue, malaise, lethargy. No fever or chills. HEENT: Eyes: No visual changes. No eye pain. No eye discharge. ENT: No runny nose. No epistaxis. No sinus pain. No sore throat. No odynophagia. No congestion. RESPIRATORY: Shortness of breath on exertion. CARDIOVASCULAR: No chest pain. No palpitations. No PND. No orthopnea. GASTROINTESTINAL: No abdominal pain. No nausea or vomiting. No diarrhea or constipation. No hematemesis. No hematochezia. GENITOURINARY: No urgency. No frequency. No dysuria. No hematuria. No obstructive symptoms. No discharge. No pain. No significant abnormal bleeding. MUSCULOSKELETAL: No musculoskeletal pain; no joint swelling. NEUROLOGICAL: No headache. No neck pain. No syncope. No seizures. No dizziness. PSYCHIATRIC: Not anxious. No depression. No suicidal thoughts. No homicidal thoughts. SKIN: No rash. No lesions. No wounds. ENDOCRINE: No unexplained weight loss. No weight gain. HEMATOLOGIC/LYMPHATIC: No anemia. No purpura. No petechiae. No prolonged or excessive bleeding. No palpable lymph nodes. PHYSICAL EXAMINATION: GENERAL: The patient is in no distress. VITAL SIGNS: Temperature 98.6, pulse 90, respiratory rate 16, blood pressure 115/70, pulse ox 95%. HEENT: Head normocephalic, atraumatic. Eyes: Extraocular muscles are intact. Pupils are equal, round and reactive to light and accommodation. Ears: No lesions. Nose appeared normal. Throat: No exudate or erythema. NECK: Supple. LUNGS: Decreased breath sounds but clear. HEART: S1, S2, no S3. ABDOMEN: Soft. Bowel sounds active. EXTREMITIES: No edema. Full range of motion of all extremities, equal. NEUROLOGIC: No focal deficit. Cranial nerves II through XII are grossly intact. No headache. No double vision. SKIN: Not dry. Intact. Turgor - normal. LYMPHATIC: No palpable lymph nodes/no lymphedema. MUSCULOSKELETAL: Normal joints with no swelling. Muscle tone is normal. LABS: AST/ALT is 68 and 115, both better than yesterday. Total bilirubin normal. ASSESSMENT: 1. Acute renal failure 2. Status post prostatitis, recovering 3. Dementia PLAN: 1. Encourage patient to eat. 2. Continue IV fluids. 3. Continue to monitor CBC/CMP. Patient had an echocardiogram done to evaluate LV function; patient has normal LV contractility with LVH with enlarged LA cavity. Patient's medical condition is improving but very slowly. Patient may have to stay here for swing bed for function like ambulation, etc. TIME SPENT: More than 35 minutes. Plan and coordination of the patient's care discussed in the presence of nurse. MIYA
--- NOTE | 2023-01-21 15:35 | PN ---
DATE OF SERVICE: 01/20/23 SUBJECTIVE: 78 year old white male hospitalized with acute renal failure. His renal failure seems to have resolved. He was doing really well and improving but this morning he had complex partial seizure. Patient was noted to have blank look lasting for a minute or so. He nearly lost his consciousness and had incontinence of urine. He turned around immediately and when I arrived which was approximately 15 minutes, he was already eating, talking normally. The youngest son was present in the room, which I had never met. He was very nice and answered questions without much problems. REVIEW OF SYSTEMS: CONSTITUTIONAL: No night sweats. No fatigue, malaise, lethargy. No fever or chills. HEENT: Eyes: No visual changes. No eye pain. No eye discharge. ENT: No runny nose. No epistaxis. No sinus pain. No sore throat. No odynophagia. No congestion. RESPIRATORY: No cough, no congestion. No hemoptysis. No shortness of breath. CARDIOVASCULAR: No chest pain. No palpitations. No PND. No orthopnea. GASTROINTESTINAL: No abdominal pain. No nausea or vomiting. No diarrhea or constipation. No hematemesis. No hematochezia. GENITOURINARY: No urgency. No frequency. No dysuria. No hematuria. No obstructive symptoms. No discharge. No pain. No significant abnormal bleeding. MUSCULOSKELETAL: No musculoskeletal pain; no joint swelling. NEUROLOGICAL: No headache. No neck pain. No syncope. No seizures. No dizziness. PSYCHIATRIC: Not anxious. No depression. No suicidal thoughts. No homicidal thoughts. SKIN: No rash. No lesions. No wounds. ENDOCRINE: No unexplained weight loss. No weight gain. HEMATOLOGIC/LYMPHATIC: No anemia. No purpura. No petechiae. No prolonged or excessive bleeding. No palpable lymph nodes. PHYSICAL EXAMINATION: GENERAL: The patient is in no distress. VITAL SIGNS: Temperature 98.4, pulse 90, respiratory rate 20, blood pressure 150/90, pulse ox 96% on room air. HEENT: Head normocephalic, atraumatic. Eyes: Extraocular muscles are intact. Pupils are equal, round and reactive to light and accommodation. Ears: No lesions. Nose appeared normal. Throat: No exudate or erythema. NECK: Supple. LUNGS: Decreased breath sounds but clear. HEART: S1, S2, no S3. ABDOMEN: Soft. NEUROLOGIC: No focal deficit. Cranial nerves II through XII are grossly intact. No headache. No double vision. SKIN: Not dry. Intact. Turgor - normal. LYMPHATIC: No palpable lymph nodes/no lymphedema. MUSCULOSKELETAL: Normal joints with no swelling. Muscle tone is normal. LABS: Hemoglobin 13, hematocrit 41, WBC normal, creatinine 1.9, BUN 21, potassium 4.8. ASSESSMENT: 1. Complex partial seizure activity, likely from fever. Patient was running a fever this morning around 100. 2. Patient has a history of prostatitis for which he was treated with Levaquin for 10-15 days. Maybe he will need some more treatment and double up on Flomax 0.4 BID. 3. Will continue IV fluids. 4. Continue to monitor CBC, CMP. 5. CT scan of the head was done January 05 which was practically unremarkable. Patent has no neurological deficits and at present time is moving all his extremities. Pupils are equal and reactive to light normally. Complete CLAIMS ASSOCIATE examination is normal. I think this partial seizure was from high fever patient had. Patient has already been given 1,000 mg Keppra has a loading dose and he will be started on 500 mg IV. Condition: Stable. TIME SPENT: More than 35 minutes. Plan and coordination of the patient's care discussed in the presence of nurse. MIYA
[2023-01-21] MEDS: SINGULAIR PO SCH (20:45)
[2023-01-22] MEDS: TYLENOL PO PRN (02:31)
[2023-01-22] MEDS: SODIUM CHLORIDE 1,000 ML IV SCH ×2 (02:36→16:59)
[2023-01-22] MEDS: PROTONIX PO SCH ×2 (05:38→16:59)
[2023-01-22 06:48] LABS: BASOPHILS % (AUTO) 0.2 % (0.0-3.0); HEMATOCRIT 34.5 % (42.0-52.0); HEMOGLOBIN 11.6 g/dl (14.0-18.0); IMMATURE GRANULOCYTE % (AUTO) 0.5 % (0.0-5.0); LYMPHOCYTES # (AUTO) 1.7 K/uL (0.60-3.4); LYMPHOCYTES % (AUTO) 25.2 (10.0-50.0); MEAN CORPUSCULAR HEMOGLOBIN 31.7 pg (27.0-31.0); MEAN CORPUSCULAR HGB CONC 33.6 (31.8-35.4); MEAN CORPUSCULAR VOLUME 94.3 fl (80.0-94.0); MONOCYTES # (AUTO) 0.4 K/uL (0.4-2.0); MONOCYTES % (AUTO) 6.5 (0-10); NEUTROPHILS # (AUTO) 4.5 K/ul (2.0-6.9); NEUTROPHILS % (AUTO) 67.6 % (42.2-75.2); PLATELET COUNT 44 10^3/uL (140-440); RED BLOOD COUNT 3.66 10^6/ul (4.70-6.10); WHITE BLOOD COUNT 6.62 K/ul (4.2-10.2)
[2023-01-22 07:04] LABS: ALANINE AMINOTRANSFERASE 126.4 U/L (0-50); ALBUMIN 2.34 g/dL (3.5-5.0); ALKALINE PHOSPHATASE 116.8 U/L (56-119); BILIRUBIN,TOTAL 1.14 mg/dL (0.2-1.3); BLOOD UREA NITROGEN 28.8 mg/dL (9-20); CALCIUM 7.21 mg/dL (8.4-10.2); CARBON DIOXIDE 18.4 mmol/L (22-30.0); CHLORIDE 116.8 mmol/L (98-107); CREATININE 2.64 mg/dL (0.60-1.10); GLUCOSE 108.2 mg/dL (74-106); POTASSIUM 4.64 mmol/L (3.5-5.1); SODIUM 140.2 mmol/L (134.5-145); TOTAL PROTEIN 5.65 g/dL (6.3-8.2)
[2023-01-22] MEDS: COLACE PO SCH ×2 (08:47→20:25)
[2023-01-22] MEDS: NAMENDA PO SCH ×2 (08:47→20:26)
[2023-01-22] MEDS: NEURONTIN PO SCH ×3 (08:47→20:25)
[2023-01-22] MEDS: SODIUM CHLORIDE IV SCH ×2 (08:47→20:49)
[2023-01-22] MEDS: KEPPRA IV SCH ×2 (08:47→20:49)
[2023-01-22] MEDS: MIRALAX PO SCH (08:47)
[2023-01-22] MEDS: K-DUR PO SCH ×2 (08:48→16:59)
[2023-01-22] MEDS: FOLIC ACID PO SCH (08:48)
[2023-01-22] MEDS: LEXAPRO PO SCH (08:48)
[2023-01-22] MEDS: FLOMAX PO SCH ×2 (08:48→20:26)
--- NOTE | 2023-01-22 09:04 | PCM.PROG ---
Attending Provider: ATTENDING PROVIDER: Dr. JOSE ANGEL FRANZ MD This patient is seen with Alicia Moore, Nurse Practitioner. DATE OF SERVICE: 01/22/23 SUBJECTIVE: This 78 year old /WHITE M was hospitalized 01/15/23. Started having fever last night up to 102. Another seizure like episode. Complaining of left sided chest pain. Not eating much. Plt count down to 44 today. renal function is still elevated. Liver enzymes slightly increased. REVIEW OF SYSTEMS: CONSTITUTIONAL: No night sweats. No fatigue, malaise, lethargy. Fever. Weakness HEENT: Eyes: No visual changes. No eye pain. No eye discharge. ENT: No runny nose. No epistaxis. No sinus pain. No odynophagia. No congestion. RESPIRATORY: No cough, no congestion. No hemoptysis. No shortness of breath. CARDIOVASCULAR: No angina symptoms. No CHF symptoms. No atypical chest pain for CAD. No palpitations. No orthopnea.. GASTROINTESTINAL: No abdominal pain. No nausea or vomiting. No diarrhea or constipation. No hematemesis. No hematochezia. Loss of appetite. GENITOURINARY: No urgency. No frequency. No dysuria. No hematuria. No obstructive symptoms. No discharge. No pain. No significant abnormal bleeding. MUSCULOSKELETAL: No musculoskeletal pain; no joint swelling. NEUROLOGICAL: Awake, alert, intermittent confusion. No headache. No neck pain. No syncope. No seizures. No dizziness. PSYCHIATRIC: Not anxious. No depression. No suicidal thoughts. No homicidal thoughts. SKIN: No rash. No lesions. No wounds. ENDOCRINE: No unexplained weight loss. No weight gain. HEMATOLOGIC/LYMPHATIC: No anemia. No purpura. No petechiae. No prolonged or excessive bleeding. No palpable lymph nodes. PHYSICAL EXAMINATION: GENERAL: The patient is awake, alert and oriented to person only, lying in bed in no distress. VITAL SIGNS: Temperature 100.9 F, Pulse 108, Respiratory Rate 22, BP 91/60, Pulse Ox 95% HEENT: Head normocephalic, atraumatic. Eyes: Extraocular muscles are intact. Pupils are equal, round and reactive to light and accommodation. Ears: No lesions. Nose appeared normal. Throat: No exudate or erythema. NECK: Supple. No JVD, no carotid bruit. No lymphadenopathy or thyromegaly. LUNGS: Diminished breath sounds. Clear to auscultation. Percussion note normal. Chest symmetrical. HEART: S1, S2, no S3. No murmurs. No cyanosis or clubbing. No ascites. Pul ses: Dorsalis pedis and posterior tibial pulses +1 to +2 both sides. ABDOMEN: Soft. Non-tender. Bowel sounds active. No CVA tenderness. No mass felt. EXTREMITIES: No edema. Full range of motion of all extremities, equal. NEUROLOGIC: No focal deficit. Cranial nerves II through XII are grossly intact. No headache. No double vision. SKIN: Not dry. Intact. Turgor-normal. LYMPHATIC: No palpable lymph nodes/no lymphedema. MUSCULOSKELETAL: Normal joints with no swelling. Muscle tone is normal. LAB REVIEW: 01/22/23 06:43 01/22/23 06:43 01/22/23 06:43: WBC 6.62, RBC 3.66 L, Hgb 11.6 L, Hct 34.5 L, MCV 94.3 H, MCH 31.7 H, MCHC 33.6, RDW Coeff of Mague 14.0, Plt Count 44 L D, Immature Gran % (Auto) 0.5, Neut % (Auto) 67.6, Lymph % (Auto) 25.2, Ray % (Auto) 6.5, Eos % (Auto) 0.0, Baso % (Auto) 0.2, Neut # (Auto) 4.5, Lymph # (Auto) 1.7, Ray # (Auto) 0.4, Eos # (Auto) 0.0, Baso # (Auto) 0.0, Immature Gran # (Auto) 0.0, Sodium 140.2, Potassium 4.64, Chloride 116.8 H, Carbon Dioxide 18.4 L, Anion Gap 9.64, BUN 28.8 H, Creatinine 2.64 H, Estimated GFR (MDRD) 23.00, BUN/Creatinine Ratio 10.90, Glucose 108.2 H, Calcium 7.21 L, Total Bilirubin 1.14, AST 142.0 H D, ALT 126.4 H, Alkaline Phosphatase 116.8, Total Protein 5.65 L, Albumin 2.34 L , Globulin 3.31, Albumin/Globulin Ratio 0.70 ASSESSMENT: Please see below. 1. Fever 1. Renal azotemia 3. Thrombocytopenia 4. Elevated liver function 5. Dementia 6. Failure to thrive. PLAN: 1. Respiratory panel by PCR 2. CT chest, abdomen and pelvis without 3. Decrease Potassium to 20meq BID 4. Repeat u/a with culture Plan and coordination of the patient's care discussed in the presence of Medical Staff Services Coordinator and nurse. SCRIBED BY: RENZO WEBB Auto Locator scribed while in presence of service performed by Alicia Moore APRN on 01/22/23 (0804) Coding (1) Dysphagia: Status: Acute Code(s): R13.10 - Dysphagia, unspecified SNOMED Code(s): 25120809
[2023-01-22] MEDS: ROCEPHIN 1 GM/50 ML D5W 1 GM/50 ML BAG IV SCH (10:08)
[2023-01-22] MEDS ORDERED: DOXYCYCLINE HYCLATE PO ONE ×2 (11:00→21:00)
[2023-01-22] MEDS: VANCOMYCIN 750 MG/150 ML BAG 750 MG/150 ML BAG IV SCH (12:01)
[2023-01-22 12:03] LABS: BILIRUBIN,URINE Negative (NEGATIVE); CLARITY,URINE Clear (CLEAR); COLOR,URINE Yellow (YELLOW); GLUCOSE, URINE (UA) Trace (NEGATIVE); KETONES,URINE Negative (NEGATIVE); LEUKOCYTE ESTERASE ,URINE Negative (NEGATIVE); NITRITE,URINE Negative (NEGATIVE); PH,URINE 5.5 (5-9); PROTEIN,URINE 2+ (NEGATIVE); URINE, BLOOD 2+ (NEGATIVE)
[2023-01-22 12:07] LABS: SQUAMOUS EPITHELIAL CELL,UR 0-2 (0-5); URINE RBC, MICROSCOPIC 0-2 (0-2)
[2023-01-22 12:08] LABS: BACTERIA,URINE 1+ (NOT PRESENT)
--- NOTE | 2023-01-22 12:25 | CT ---
EXAM: CHEST CT WITHOUT CONTRAST TECHNIQUE: CT acquisition of the chest from the thoracic inlet to the upper abdomen without IV contra st administration. 2-D coronal and sagittal reformatted images were obtained from the axial source i mages. IV Contrast: None. CT Dose Reduction Techniques Performed: Yes. COMPARISON: 01/06/2023 HISTORY: Chest pain FINDINGS: CHEST: Lung Parenchyma and Airways: No suspicious mass or consolidation. A stable 0.5 centimeter right middl e lobe nodule is noted (axial image 39) Pleural Space: No significant pleural effusion. No pneumothorax. Mediastinum: The heart appears within normal limits. No pericardial effusion. The great vessels appea r within normal limits. A moderate sliding hiatal hernia is noted. Fluid is noted within the distal esophagus. Lymph Nodes: No enlarged lymph nodes. Bones and Soft Tissues: Age-related degerative changes are noted. There is no acute fracture, lytic l esion, or blastic lesion. Upper Abdomen: The visualized portions of the upper abdomen appear within normal limits. IMPRESSION: 1. No acute findings. 2. A moderate sliding hiatal hernia is noted, with evidence of gastroesophageal reflux. All CT scans are performed using dose optimization techniques as appropriate to the performed exam an d include at least one of the following: Automated exposure control, adjustment of the mA and/or kV according t o size, and the use of iterative reconstruction technique.
[2023-01-22] MEDS ORDERED: DECADRON IVP ONE (12:30)
--- NOTE | 2023-01-22 12:35 | CT ---
CT ABDOMEN AND PELVIS HISTORY: Elevated liver enzymes TECHNIQUE: Contiguous axial tomographic sections were obtained from the dome of the diaphragm throug h the ischial tuberosities. Coronal and sagittal reformats were then performed. Automatic exposure control was utilized for dose reduction technique. COMPARISON: 01/06/2023 FINDINGS: There is limited evaluation of the visceral organs/structures in the absence of IV contras t. LOWER CHEST: There is a 6 mm nodule axial image one adjacent to the major fissure in the anterior ri ght lower lobe. This is grossly stable since prior exam 08/28/2021. There is also a stable 6 mm nod ule in the right middle lobe. There is a small area of atelectasis at the posterior sulcus on the ri ght. Small to moderate hiatal hernia noted. Trace pericardial effusion at the apex of the heart. LIVER: Normal size and attenuation without gross hepatic lesion. GALLBLADDER: No evidence of cholelithiasis, gallbladder wall thickening, or pericholecystic fluid. BILIARY: No intrahepatic or extrahepatic biliary ductal dilatation. PANCREAS: Normal contour. Normal caliber main pancreatic duct. SPLEEN: Normal size and contour. ADRENALS: Normal size and shape without nodularity. KIDNEYS: There is mild bilateral perinephric stranding, nonspecific. No hydronephrosis. No ureteral dilatation or ureteral calculi. No Limited evaluation for mass. PERITONEUM/MESENTERY: No free fluid, free air or mesenteric inflammatory change. No loculated fluid c ollection. VASCULATURE: Nonaneurysmal aorta. Limited evaluation. LYMPH NODES: No pathologically enlarged lymph nodes by CT size criteria. BOWEL: No bowel obstruction. The appendix is identified and has a normal diameter. The colon is varia sandra decompressed throughout its length limiting evaluation. There is diverticulosis coli present, no evidence of acute diverticulitis or colitis. There is increased colonic stool consistent with const ipation. URINARY BLADDER: The bladder has normal contours and wall thickness. REPRODUCTIVE: Unremarkable prostate and seminal vesicles. MUSCULOSKELETAL: L4-5 fusion hardware noted this appears grossly intact. Multilevel degenerative spo ndylosis lumbar spine noted. IMPRESSION: 1. Unremarkable unenhanced liver. No evidence of hepatic steatosis by CT to explain elevated liver e nzymes. 2. Stable pulmonary nodules as above. 3. Mild bilateral perinephric stranding. 4. Colonic diverticulosis without CT evidence of acute diverticulitis. Increased colonic stool burde n consistent with constipation. 5. Other ancillary findings as above. All CT scans are performed using dose optimization techniques as appropriate to the performed exam an d include at least one of the following: Automated exposure control, adjustment of the mA and/or kV according t o size, and the use of iterative reconstruction technique.
[2023-01-22] MEDS: MEGACE PO SCH (20:25)
[2023-01-22] MEDS: SINGULAIR PO SCH (20:26)
[2023-01-23 05:29] LABS: BASOPHILS % (AUTO) 0.3 % (0.0-3.0); HEMATOCRIT 31.3 % (42.0-52.0); HEMOGLOBIN 10.2 g/dl (14.0-18.0); IMMATURE GRANULOCYTE % (AUTO) 0.3 % (0.0-5.0); LYMPHOCYTES # (AUTO) 3.8 K/uL (0.60-3.4); LYMPHOCYTES % (AUTO) 51.3 (10.0-50.0); MEAN CORPUSCULAR HEMOGLOBIN 31.4 pg (27.0-31.0); MEAN CORPUSCULAR HGB CONC 32.6 (31.8-35.4); MEAN CORPUSCULAR VOLUME 96.3 fl (80.0-94.0); MONOCYTES # (AUTO) 0.6 K/uL (0.4-2.0); MONOCYTES % (AUTO) 7.9 (0-10); NEUTROPHILS % (AUTO) 40.2 % (42.2-75.2); PLATELET COUNT 49 10^3/uL (140-440); RDW COEFFICIENT OF VARIATION 14.4 % (11.6-14.8); RED BLOOD COUNT 3.25 10^6/ul (4.70-6.10); WHITE BLOOD COUNT 7.35 K/ul (4.2-10.2)
[2023-01-23] MEDS: PROTONIX PO SCH ×2 (05:43→16:40)
[2023-01-23 05:47] LABS: ALANINE AMINOTRANSFERASE 222.8 U/L (0-50); ALBUMIN 2.25 g/dL (3.5-5.0); ALKALINE PHOSPHATASE 105.6 U/L (56-119); ASPARTATE AMINO TRANSFERASE 233.9 U/L (17-59); BILIRUBIN,TOTAL 0.64 mg/dL (0.2-1.3); BLOOD UREA NITROGEN 35.4 mg/dL (9-20); CALCIUM 7.06 mg/dL (8.4-10.2); CHLORIDE 113.5 mmol/L (98-107); CREATININE 2.34 mg/dL (0.60-1.10); GLUCOSE 107.6 mg/dL (74-106); POTASSIUM 4.5 mmol/L (3.5-5.1); SODIUM 137.4 mmol/L (134.5-145); TOTAL PROTEIN 5.48 g/dL (6.3-8.2)
[2023-01-23] MEDS: SODIUM CHLORIDE 1,000 ML IV SCH (05:47)
[2023-01-23] MEDS: ROCEPHIN 1 GM/50 ML D5W 1 GM/50 ML BAG IV SCH (08:25)
[2023-01-23] MEDS ORDERED: DECADRON IVP ONE (09:00)
[2023-01-23] MEDS: MIRALAX PO SCH (09:00)
[2023-01-23] MEDS: K-DUR PO SCH ×2 (09:28→16:41)
[2023-01-23] MEDS: COLACE PO SCH ×2 (09:28→20:05)
[2023-01-23] MEDS: FOLIC ACID PO SCH (09:28)
[2023-01-23] MEDS: FLOMAX PO SCH ×2 (09:28→20:05)
[2023-01-23] MEDS: NEURONTIN PO SCH ×3 (09:29→20:04)
[2023-01-23] MEDS: MEGACE PO SCH ×2 (09:29→20:04)
[2023-01-23] MEDS: NAMENDA PO SCH ×2 (09:29→20:05)
[2023-01-23] MEDS: LEXAPRO PO SCH (09:29)
[2023-01-23] MEDS: SODIUM CHLORIDE IV SCH (09:32)
[2023-01-23] MEDS: KEPPRA IV SCH (09:32)
--- NOTE | 2023-01-23 10:39 | ECHO2D ---
Date of Exam: 01/19/2023 Ordering Physician: DR. JOSE ANGEL FRANZ Room #: ILU 3 Reason for Echo: SOB M-Mode Normal Adult Results LV Dimensions Normal Adult Results AoV Opening excursions >1.6 >1.6 LVEDD-base- 3.5-5.8 4.1 Ao root dimensions 2.0-3.7 3.5 LVESD-base- 3.1-4.6 L. Atrium dimensions 1.9-3.8 4.7 Post. Wall thickness 0.8-1.1 1.4 IV septum (thickness) 0.7-1.2 1.5 Post. Wall excursion 0.72-1.3 NORMAL Septal motion NORMAL Systolic motion R. Ventricular cavity 1.5-2.0 NORMAL LVEF 60% >60% Paradoxical septal wall motion NORMAL 2-D : 2-D M Mode Echocardiogram was performed using apical four chamber and left parasternal long and short axis views. Mitral, tricuspid and aortic valves appear to be normal. Contractility of the left ventricle seems to be normal, so is the cavity size. ENLARGED LEFT ATRIAL CAVITY SIZE. Aortic root appears to be normal. There is no pericardial effusion. There is no thrombus noted in the left ventricle or left atrial cavity. M-MODE: MV: NORMAL AV: NORMAL TV: NORMAL PV: CHAMBER SIZE: ENLARGED LEFT ATRIAL CAVITY WALL MOTION: NORMAL PERICARDIUM: NORMAL INTERPRETATION: 1. LEFT VENTRICLE HYPERTROPHY (MODERATE) 2. ENLARGED LEFT ATRIAL CAVITY 3. NORMAL VALVES 4. NORMAL LEFT VENTRICLE CONTRACTILITY AND LEFT VENTRICLE SIZE MTDD
[2023-01-23] MEDS: VANCOMYCIN 750 MG/150 ML BAG 750 MG/150 ML BAG IV SCH (11:15)
[2023-01-23] MEDS: DOXY-100 100 MG in SODIUM CHLORIDE 100ML 100 ML IV SCH ×2 (15:11→20:04)
[2023-01-23] MEDS: NORCO 10-325 PO PRN (20:05)
[2023-01-23] MEDS: SINGULAIR PO SCH (20:05)
[2023-01-23] MEDS: KEPPRA PO SCH (20:05)
[2023-01-24] MEDS: SODIUM CHLORIDE 1,000 ML IV SCH (04:50)
[2023-01-24 04:58] LABS: BASOPHILS % (AUTO) 0.1 % (0.0-3.0); EOSINOPHILS % (AUTO) 0.1 % (0.0-7.0); HEMATOCRIT 32.3 % (42.0-52.0); HEMOGLOBIN 10.5 g/dl (14.0-18.0); IMMATURE GRANULOCYTE % (AUTO) 0.2 % (0.0-5.0); LYMPHOCYTES # (AUTO) 4.7 K/uL (0.60-3.4); LYMPHOCYTES % (AUTO) 54.9 (10.0-50.0); MEAN CORPUSCULAR HGB CONC 32.5 (31.8-35.4); MEAN CORPUSCULAR VOLUME 95.3 fl (80.0-94.0); MONOCYTES # (AUTO) 0.6 K/uL (0.4-2.0); MONOCYTES % (AUTO) 7.3 (0-10); NEUTROPHILS # (AUTO) 3.2 K/ul (2.0-6.9); NEUTROPHILS % (AUTO) 37.4 % (42.2-75.2); PLATELET COUNT 54 10^3/uL (140-440); RDW COEFFICIENT OF VARIATION 14.3 % (11.6-14.8); RED BLOOD COUNT 3.39 10^6/ul (4.70-6.10); WHITE BLOOD COUNT 8.58 K/ul (4.2-10.2)
[2023-01-24 05:20] LABS: ALBUMIN 2.29 g/dL (3.5-5.0); ALKALINE PHOSPHATASE 98.5 U/L (56-119); ASPARTATE AMINO TRANSFERASE 129.9 U/L (17-59); BILIRUBIN,TOTAL 0.58 mg/dL (0.2-1.3); BLOOD UREA NITROGEN 31.5 mg/dL (9-20); CALCIUM 7.14 mg/dL (8.4-10.2); CARBON DIOXIDE 21.9 mmol/L (22-30.0); CHLORIDE 114.2 mmol/L (98-107); CREATININE 1.92 mg/dL (0.60-1.10); GLUCOSE 91.3 mg/dL (74-106); POTASSIUM 4.02 mmol/L (3.5-5.1); SODIUM 139.1 mmol/L (134.5-145); TOTAL PROTEIN 5.52 g/dL (6.3-8.2)
[2023-01-24] MEDS: PROTONIX PO SCH ×2 (05:44→17:14)
[2023-01-24] MEDS: VANCOMYCIN 750 MG/150 ML BAG 750 MG/150 ML BAG IV SCH (08:47)
--- NOTE | 2023-01-24 08:51 | PCM.PROG ---
Attending Provider: ATTENDING PROVIDER: Dr. JOSE ANGEL FRANZ MD This patient is seen with Alicia Moore, Nurse Practitioner. DATE OF SERVICE: 01/24/23 SUBJECTIVE: This 78 year old /WHITE M was hospitalized 01/15/23. More alert, labs have slightly improved. Plt count is up. No fever for past 48 hours. Liver enzymes improved. We will continue IV Doxycycline, Rocephin and Vancomycin REVIEW OF SYSTEMS: CONSTITUTIONAL: No night sweats. No fatigue, malaise, lethargy. No fever or chills. Weakness. HEENT: Eyes: No visual changes. No eye pain. No eye discharge. ENT: No runny nose. No epistaxis. No sinus pain. No odynophagia. No congestion. RESPIRATORY: No cough, no congestion. No hemoptysis. No shortness of breath. CARDIOVASCULAR: No angina symptoms. No CHF symptoms. No atypical chest pain for CAD. No palpitations. No orthopnea.. GASTROINTESTINAL: No abdominal pain. No nausea or vomiting. No diarrhea or constipation. No hematemesis. No hematochezia. GENITOURINARY: No urgency. No frequency. No dysuria. No hematuria. No obstructive symptoms. No discharge. No pain. No significant abnormal bleeding. MUSCULOSKELETAL: No musculoskeletal pain; no joint swelling. NEUROLOGICAL: Awake, alert, Intermittent confusion. No headache. No neck pain. No syncope. No seizures. No dizziness. PSYCHIATRIC: Not anxious. No depression. No suicidal thoughts. No homicidal thoughts. SKIN: No rash. No lesions. No wounds. ENDOCRINE: No unexplained weight loss. No weight gain. HEMATOLOGIC/LYMPHATIC: No anemia. No purpura. No petechiae. No prolonged or excessive bleeding. No palpable lymph nodes. PHYSICAL EXAMINATION: GENERAL: The patient is awake, alert and oriented to person, lying in bed in no distress. VITAL SIGNS: Temperature 97.6 F, Pulse 78, Respiratory Rate 15, BP 130/85, Pulse Ox 98% HEENT: Head normocephalic, atraumatic. Eyes: Extraocular muscles are intact. Pupils are equal, round and reactive to light and accommodation. Ears: No lesions. Nose appeared normal. Throat: No exudate or erythema. NECK: Supple. No JVD, no carotid bruit. No lymphadenopathy or thyromegaly. LUNGS: Diminished breath sounds. Clear to auscultation. Percussion note normal. Chest symmetrical. HEART: S1, S2, no S3. No murmurs. No cyanosis or clubbing. No ascites. Pulses: Dorsalis pedis and posterior tibial pulses +1 to +2 both sides. ABDOMEN: Soft. Non-tender. Bowel sounds active. No CVA tenderness. No mass felt. EXTREMITIES: No edema. Full range of motion of all extremities, equal. NEUROLOGIC: No focal deficit. Cranial nerves II through XII are grossly intact. No headache. No double vision. SKIN: Not dry. Intact. Turgor-normal. LYMPHATIC: No palpable lymph nodes/no lymphedema. MUSCULOSKELETAL: Normal joints with no swelling. Muscle tone is normal. LAB REVIEW: 01/24/23 04:51 01/24/23 04:51 01/24/23 04:51: WBC 8.58, RBC 3.39 L, Hgb 10.5 L, Hct 32.3 L, MCV 95.3 H, MCH 31.0, MCHC 32.5, RDW Coeff of Mague 14.3, Plt Count 54 L, Immature Gran % (Auto) 0.2, Neut % (Auto) 37.4 L, Lymph % (Auto) 54.9 H, [place] % (Auto) 7.3, Eos % (Auto) 0.1, Baso % (Auto) 0.1, Neut # (Auto) 3.2, Lymph # (Auto) 4.7 H, [place] # (Auto) 0.6, Eos # (Auto) 0.0, Baso # (Auto) 0.0, Immature Gran # (Auto) 0.0, Sodium 139.1, Potassium 4.02, Chloride 114.2 H, Carbon Dioxide 21.9 L, Anion Gap 7.02, BUN 31.5 H, Creatinine 1.92 H, Estimated GFR (MDRD) 34.00, BUN/Creatinine Ratio 16.40, Glucose 91.3, Calcium 7.14 L, Total Bilirubin 0.58, AST 129.9 H D, ALT 178.0 H D, Alkaline Phosphatase 98.5, Total Protein 5.52 L, Albumin 2.29 L, Globulin 3.23, Albumin/Globulin Ratio 0.70 ASSESSMENT: Please see below. 1. Renal Azotemia 2. Thrombocytopenia 3. Elevated liver function 4. Fever, Resolved 5. Hypotension PLAN: 1. Continue IV antibiotics 2. We will decrease Gabapentin to 200mg TID due to renal function Plan and coordination of the patient's care discussed in the presence of Media Consultant Outside Sales and nurse. SCRIBED BY: Mary Ann NATARAJAN scribed while in presence of service performed by Alicia Moore APRN on 01/24/23 (0810) Coding (1) Dysphagia: Status: Acute Code(s): R13.10 - Dysphagia, unspecified SNOMED Code(s): 21564107
[2023-01-24] MEDS: FOLIC ACID PO SCH (08:55)
[2023-01-24] MEDS: NAMENDA PO SCH ×2 (08:56→20:53)
[2023-01-24] MEDS: NORCO 10-325 PO PRN ×2 (08:56→20:53)
[2023-01-24] MEDS: COLACE PO SCH ×2 (08:57→20:52)
[2023-01-24] MEDS: K-DUR PO SCH ×2 (08:57→17:14)
[2023-01-24] MEDS: FLOMAX PO SCH ×2 (08:58→20:53)
[2023-01-24] MEDS: KEPPRA PO SCH ×2 (08:58→20:52)
[2023-01-24] MEDS: LEXAPRO PO SCH (08:59)
[2023-01-24] MEDS ORDERED: NEURONTIN PO SCH (09:00)
[2023-01-24] MEDS ORDERED: DECADRON IVP ONE (09:00)
[2023-01-24] MEDS: NEURONTIN PO SCH ×3 (09:08→20:53)
[2023-01-24] MEDS: MEGACE PO SCH ×2 (09:12→20:54)
[2023-01-24] MEDS: MIRALAX PO SCH (09:12)
[2023-01-24] MEDS: ROCEPHIN 1 GM/50 ML D5W 1 GM/50 ML BAG IV SCH (10:45)
[2023-01-24] MEDS: DOXY-100 100 MG in SODIUM CHLORIDE 100ML 100 ML IV SCH ×2 (12:42→20:53)
[2023-01-24] MEDS: SINGULAIR PO SCH (20:53)
[2023-01-25 05:14] LABS: BASOPHILS % (AUTO) 0.1 % (0.0-3.0); EOSINOPHILS % (AUTO) 0.1 % (0.0-7.0); HEMATOCRIT 33.6 % (42.0-52.0); HEMOGLOBIN 11.1 g/dl (14.0-18.0); IMMATURE GRANULOCYTE % (AUTO) 0.4 % (0.0-5.0); LYMPHOCYTES # (AUTO) 4.2 K/uL (0.60-3.4); LYMPHOCYTES % (AUTO) 54.9 (10.0-50.0); MEAN CORPUSCULAR HEMOGLOBIN 31.3 pg (27.0-31.0); MEAN CORPUSCULAR VOLUME 94.6 fl (80.0-94.0); MONOCYTES # (AUTO) 0.6 K/uL (0.4-2.0); MONOCYTES % (AUTO) 7.2 (0-10); NEUTROPHILS # (AUTO) 2.9 K/ul (2.0-6.9); NEUTROPHILS % (AUTO) 37.3 % (42.2-75.2); PLATELET COUNT 78 10^3/uL (140-440); RED BLOOD COUNT 3.55 10^6/ul (4.70-6.10); WHITE BLOOD COUNT 7.67 K/ul (4.2-10.2)
[2023-01-25 05:30] LABS: ALBUMIN 2.5 g/dL (3.5-5.0); ALKALINE PHOSPHATASE 106.3 U/L (56-119); ASPARTATE AMINO TRANSFERASE 94.2 U/L (17-59); BILIRUBIN,TOTAL 0.64 mg/dL (0.2-1.3); BLOOD UREA NITROGEN 27.1 mg/dL (9-20); CALCIUM 7.22 mg/dL (8.4-10.2); CARBON DIOXIDE 20.9 mmol/L (22-30.0); CREATININE 1.61 mg/dL (0.60-1.10); GLUCOSE 87.4 mg/dL (74-106); POTASSIUM 3.64 mmol/L (3.5-5.1); TOTAL PROTEIN 5.93 g/dL (6.3-8.2)
[2023-01-25] MEDS: PROTONIX PO SCH ×2 (06:04→17:25)
[2023-01-25] MEDS: NEURONTIN PO SCH ×3 (09:19→20:39)
[2023-01-25] MEDS: NAMENDA PO SCH ×2 (09:20→20:39)
[2023-01-25] MEDS: FOLIC ACID PO SCH (09:20)
[2023-01-25] MEDS: KEPPRA PO SCH ×2 (09:20→20:40)
[2023-01-25] MEDS: COLACE PO SCH ×2 (09:20→20:38)
[2023-01-25] MEDS: K-DUR PO SCH ×2 (09:20→17:24)
[2023-01-25] MEDS: LEXAPRO PO SCH (09:20)
[2023-01-25] MEDS: FLOMAX PO SCH ×2 (09:21→20:39)
[2023-01-25] MEDS: MEGACE PO SCH ×2 (09:22→21:15)
[2023-01-25] MEDS: MIRALAX PO SCH (09:22)
[2023-01-25] MEDS: NORCO 10-325 PO PRN ×3 (09:25→23:12)
[2023-01-25] MEDS: ROCEPHIN 1 GM/50 ML D5W 1 GM/50 ML BAG IV SCH (11:01)
[2023-01-25] MEDS: SODIUM CHLORIDE 1,000 ML IV SCH ×2 (11:01→13:29)
[2023-01-25] MEDS: VANCOMYCIN 750 MG/150 ML BAG 750 MG/150 ML BAG IV SCH (11:22)
[2023-01-25] MEDS: DOXY-100 100 MG in SODIUM CHLORIDE 100ML 100 ML IV SCH ×2 (12:46→20:40)
[2023-01-25] MEDS: VANCOMYCIN 1.25 GM/250 ML BAG 1.25 GM/250 ML BAG IV SCH (14:34)
[2023-01-25] MEDS: SINGULAIR PO SCH (20:38)
[2023-01-26] MEDS: SODIUM CHLORIDE 1,000 ML IV SCH ×2 (04:14→19:03)
[2023-01-26 05:09] LABS: EOSINOPHILS % (AUTO) 0.1 % (0.0-7.0); HEMATOCRIT 31.3 % (42.0-52.0); HEMOGLOBIN 10.5 g/dl (14.0-18.0); IMMATURE GRANULOCYTE % (AUTO) 0.3 % (0.0-5.0); LYMPHOCYTES # (AUTO) 4.2 K/uL (0.60-3.4); LYMPHOCYTES % (AUTO) 52.8 (10.0-50.0); MEAN CORPUSCULAR HEMOGLOBIN 31.3 pg (27.0-31.0); MEAN CORPUSCULAR HGB CONC 33.5 (31.8-35.4); MEAN CORPUSCULAR VOLUME 93.4 fl (80.0-94.0); MONOCYTES # (AUTO) 0.6 K/uL (0.4-2.0); MONOCYTES % (AUTO) 7.5 (0-10); NEUTROPHILS # (AUTO) 3.1 K/ul (2.0-6.9); NEUTROPHILS % (AUTO) 39.3 % (42.2-75.2); PLATELET COUNT 98 10^3/uL (140-440); RDW COEFFICIENT OF VARIATION 14.1 % (11.6-14.8); RED BLOOD COUNT 3.35 10^6/ul (4.70-6.10); WHITE BLOOD COUNT 7.88 K/ul (4.2-10.2)
[2023-01-26 05:15] LABS: ALANINE AMINOTRANSFERASE 154.5 U/L (0-50); ALBUMIN 2.49 g/dL (3.5-5.0); ALKALINE PHOSPHATASE 110.1 U/L (56-119); BILIRUBIN,TOTAL 0.69 mg/dL (0.2-1.3); BLOOD UREA NITROGEN 22.6 mg/dL (9-20); CALCIUM 7.58 mg/dL (8.4-10.2); CARBON DIOXIDE 21.2 mmol/L (22-30.0); CHLORIDE 115.4 mmol/L (98-107); CREATININE 1.55 mg/dL (0.60-1.10); POTASSIUM 4.33 mmol/L (3.5-5.1); SODIUM 139.4 mmol/L (134.5-145); TOTAL PROTEIN 5.86 g/dL (6.3-8.2)
[2023-01-26] MEDS: PROTONIX PO SCH ×2 (06:00→16:42)
[2023-01-26] MEDS: VANCOMYCIN 1.25 GM/250 ML BAG 1.25 GM/250 ML BAG IV SCH (08:00)
[2023-01-26] MEDS: NAMENDA PO SCH ×2 (08:01→20:17)
[2023-01-26] MEDS: FLOMAX PO SCH ×2 (08:01→20:17)
[2023-01-26] MEDS: KEPPRA PO SCH ×2 (08:01→20:17)
[2023-01-26] MEDS: NEURONTIN PO SCH ×3 (08:02→20:18)
[2023-01-26] MEDS: K-DUR PO SCH ×2 (08:02→16:42)
[2023-01-26] MEDS: LEXAPRO PO SCH (08:02)
[2023-01-26] MEDS: COLACE PO SCH ×2 (08:02→20:17)
[2023-01-26] MEDS: FOLIC ACID PO SCH (08:02)
[2023-01-26] MEDS: MIRALAX PO SCH (08:11)
[2023-01-26] MEDS: MEGACE PO SCH ×3 (08:11→20:25)
[2023-01-26] MEDS: NORCO 10-325 PO PRN ×3 (09:08→22:25)
[2023-01-26] MEDS: XANAX PO PRN (09:13)
[2023-01-26] MEDS: DOXY-100 100 MG in SODIUM CHLORIDE 100ML 100 ML IV SCH (09:51)
[2023-01-26] MEDS: ROCEPHIN 1 GM/50 ML D5W 1 GM/50 ML BAG IV SCH (12:16)
[2023-01-26] MEDS: DECADRON IVP SCH (19:04)
[2023-01-26] MEDS: DOXYCYCLINE HYCLATE PO SCH (20:16)
[2023-01-26] MEDS: SINGULAIR PO SCH (20:17)
[2023-01-26] MEDS: OMNICEF PO SCH (20:17)
[2023-01-27] MEDS ORDERED: DECADRON 4 MG in SODIUM CHLORIDE 50 ML IV SCH (01:30)
[2023-01-27 05:00] LABS: BASOPHILS % (AUTO) 0.1 % (0.0-3.0); HEMATOCRIT 33.8 % (42.0-52.0); HEMOGLOBIN 11.4 g/dl (14.0-18.0); IMMATURE GRANULOCYTE % (AUTO) 0.2 % (0.0-5.0); LYMPHOCYTES # (AUTO) 3.5 K/uL (0.60-3.4); LYMPHOCYTES % (AUTO) 43.5 (10.0-50.0); MEAN CORPUSCULAR HEMOGLOBIN 31.4 pg (27.0-31.0); MEAN CORPUSCULAR HGB CONC 33.7 (31.8-35.4); MEAN CORPUSCULAR VOLUME 93.1 fl (80.0-94.0); MONOCYTES # (AUTO) 0.6 K/uL (0.4-2.0); NEUTROPHILS % (AUTO) 49.2 % (42.2-75.2); PLATELET COUNT 131 10^3/uL (140-440); RDW COEFFICIENT OF VARIATION 13.5 % (11.6-14.8); RED BLOOD COUNT 3.63 10^6/ul (4.70-6.10)
[2023-01-27 05:11] LABS: ALBUMIN 2.74 g/dL (3.5-5.0); ALKALINE PHOSPHATASE 127.3 U/L (56-119); ASPARTATE AMINO TRANSFERASE 69.2 U/L (17-59); BILIRUBIN,TOTAL 0.65 mg/dL (0.2-1.3); BLOOD UREA NITROGEN 22.2 mg/dL (9-20); CALCIUM 7.77 mg/dL (8.4-10.2); CARBON DIOXIDE 19.3 mmol/L (22-30.0); CHLORIDE 114.4 mmol/L (98-107); CREATININE 1.36 mg/dL (0.60-1.10); GLUCOSE 101.2 mg/dL (74-106); POTASSIUM 4.68 mmol/L (3.5-5.1); SODIUM 137.9 mmol/L (134.5-145); TOTAL PROTEIN 6.26 g/dL (6.3-8.2)
[2023-01-27] MEDS: PROTONIX PO SCH ×2 (05:39→16:21)
[2023-01-27] MEDS: NORCO 10-325 PO PRN ×3 (05:43→17:54)
[2023-01-27] MEDS: NEURONTIN PO SCH ×3 (09:00→20:29)
[2023-01-27] MEDS: DOXYCYCLINE HYCLATE PO SCH ×2 (09:01→20:29)
[2023-01-27] MEDS: OMNICEF PO SCH ×2 (09:01→20:29)
[2023-01-27] MEDS: XANAX PO PRN (09:01)
[2023-01-27] MEDS: FLOMAX PO SCH ×2 (09:02→20:29)
[2023-01-27] MEDS: COLACE PO SCH ×2 (09:03→20:29)
[2023-01-27] MEDS: LEXAPRO PO SCH (09:03)
[2023-01-27] MEDS: K-DUR PO SCH ×2 (09:04→16:21)
[2023-01-27] MEDS: NAMENDA PO SCH ×2 (09:04→20:29)
[2023-01-27] MEDS: KEPPRA PO SCH ×2 (09:05→20:28)
[2023-01-27] MEDS: FOLIC ACID PO SCH (09:05)
[2023-01-27] MEDS: DECADRON IVP SCH (09:06)
[2023-01-27] MEDS: MIRALAX PO SCH (09:15)
[2023-01-27] MEDS: MEGACE PO SCH ×2 (09:17→21:15)
--- NOTE | 2023-01-27 09:33 | PN ---
DATE OF SERVICE: 01/21/23 SUBJECTIVE: Patient was seen and examined with the nurse practitioner. Patient's condition is stable. No more seizures. He has been running a low grade fever and has been on antibiotics. His appetite seems to be improving some. REVIEW OF SYSTEMS: CONSTITUTIONAL: No night sweats. No fatigue, malaise, lethargy. HEENT: Eyes: No visual changes. No eye pain. No eye discharge. ENT: No runny nose. No epistaxis. No sinus pain. No sore throat. No odynophagia. No congestion. RESPIRATORY: No cough, no congestion. No hemoptysis. No shortness of breath. CARDIOVASCULAR: No angina symptoms. No CHF symptoms. No atypical chest pain for CAD. No palpitations. No PND. No orthopnea. GASTROINTESTINAL: No abdominal pain. No nausea or vomiting. No diarrhea or constipation. No hematemesis. No hematochezia. GENITOURINARY: No urgency. No frequency. No dysuria. No hematuria. No obstructive symptoms. No discharge. No pain. No significant abnormal bleeding. MUSCULOSKELETAL: No musculoskeletal pain; no joint swelling. NEUROLOGICAL: No headache. No neck pain. No syncope. No seizures. No dizziness. PSYCHIATRIC: Not anxious. No depression. No suicidal thoughts. No homicidal thoughts. SKIN: No rash. No lesions. No wounds. ENDOCRINE: No unexplained weight loss. No weight gain. HEMATOLOGIC/LYMPHATIC: No anemia. No purpura. No petechiae. No prolonged or excessive bleeding. No palpable lymph nodes. PHYSICAL EXAMINATION: GENERAL: The patient is in no distress. HEENT: Head normocephalic, atraumatic. Eyes: Extraocular muscles are intact. Pupils are equal, round and reactive to light and accommodation. Ears: No lesions. Nose appeared normal. Throat: No exudate or erythema. NECK: Supple. No JVD, no carotid bruit. No lymphadenopathy or thyromegaly. LUNGS: Clear to auscultation. Percussion note normal. Chest symmetrical. HEART: S1, S2, no S3. No murmurs. No cyanosis or clubbing. No ascites. Pulses: Dorsalis pedis and posterior tibial pulses +1 to +2 bilaterally. ABDOMEN: Soft. Nontender. Bowel sounds active. No CVA tenderness. No mass felt. EXTREMITIES: No edema. Full range of motion of all extremities, equal. NEUROLOGIC: No focal deficit. Cranial nerves II through XII are grossly intact. No headache. No double vision. SKIN: Not dry. Intact. Turgor - normal. LYMPHATIC: No palpable lymph nodes/no lymphedema. MUSCULOSKELETAL: Normal joints with no swelling. Muscle tone is normal. Status: Stable TIME SPENT: More than 35 minutes. Plan and coordination of the patient's care discussed in the presence of nurse. MIYA
--- NOTE | 2023-01-27 09:48 | PN ---
DATE OF SERVICE: 01/22/23 SUBJECTIVE: Patient was seen today. Patient's condition has improved to some extent but not running any fever this morning. Patient has been on Rocephin and is going to be on Vancomycin. Steroids has bee added. Stranding of perinephric area noted, could be from old infection, could be an ongoing infection. Patient is going to be covered with Vancomycin along with Rocephin. Doxycycline trial dose was given and patient had some vomiting but not rash was noted. Will consider Doxycycline if patient's condition continues to worsen. REVIEW OF SYSTEMS: CONSTITUTIONAL: No night sweats. No fatigue, malaise, lethargy. No fever or chills. HEENT: Eyes: No visual changes. No eye pain. No eye discharge. ENT: No runny nose. No epistaxis. No sinus pain. No sore throat. No odynophagia. No congestion. RESPIRATORY: No cough, no congestion. No hemoptysis. No shortness of breath. CARDIOVASCULAR: No angina symptoms. No CHF symptoms. No atypical chest pain for CAD. No palpitations. No PND. No orthopnea. GASTROINTESTINAL: No abdominal pain. No nausea or vomiting. No diarrhea or constipation. No hematemesis. No hematochezia. GENITOURINARY: No urgency. No frequency. No dysuria. No hematuria. No obstructive symptoms. No discharge. No pain. No significant abnormal bleeding. MUSCULOSKELETAL: No musculoskeletal pain; no joint swelling. NEUROLOGICAL: No headache. No neck pain. No syncope. No seizures. No dizziness. PSYCHIATRIC: Not anxious. No depression. No suicidal thoughts. No homicidal thoughts. SKIN: No rash. No lesions. No wounds. ENDOCRINE: No unexplained weight loss. No weight gain. HEMATOLOGIC/LYMPHATIC: No anemia. No purpura. No petechiae. No prolonged or excessive bleeding. No palpable lymph nodes. PHYSICAL EXAMINATION: GENERAL: The patient is in bed in no distress. HEENT: Head normocephalic, atraumatic. Eyes: Extraocular muscles are intact. Pupils are equal, round and reactive to light and accommodation. Ears: No lesions. Nose appeared normal. Throat: No exudate or erythema. NECK: Supple. No JVD, no carotid bruit. No lymphadenopathy or thyromegaly. LUNGS: Clear to auscultation. Percussion note normal. Chest symmetrical. HEART: S1, S2, no S3. No murmurs. No cyanosis or clubbing. No ascites. Pulses: Dorsalis pedis and posterior tibial pulses +1 to +2 bilaterally. ABDOMEN: Soft. Nontender. Bowel sounds active. No CVA tenderness. No mass felt. EXTREMITIES: No edema. Full range of motion of all extremities, equal. NEUROLOGIC: No focal deficit. Cranial nerves II through XII are grossly intact. No headache. No double vision. SKIN: Not dry. Intact. Turgor - normal. LYMPHATIC: No palpable lymph nodes/no lymphedema. MUSCULOSKELETAL: Normal joints with no swelling. Muscle tone is normal. Patient was seen and examined with nurse practitioner. Code Status: DNR TIME SPENT: More than 35 minutes. Plan and coordination of the patient's care discussed in the presence of nurse. MIYA
--- NOTE | 2023-01-27 09:56 | PN ---
DATE OF SERVICE: 01/24/23 SUBJECTIVE: Patient was seen and examined with the nurse practitioner. Patient's condition is improving. His appetite is somewhat better. REVIEW OF SYSTEMS: CONSTITUTIONAL: No nausea, no vomiting. No fever or chills. HEENT: Eyes: No visual changes. No eye pain. No eye discharge. ENT: No runny nose. No epistaxis. No sinus pain. No sore throat. No odynophagia. No congestion. RESPIRATORY: No cough, no congestion. No hemoptysis. No shortness of breath. CARDIOVASCULAR: No angina symptoms. No CHF symptoms. No atypical chest pain for CAD. No palpitations. No PND. No orthopnea. GASTROINTESTINAL: No abdominal pain. No nausea or vomiting. No diarrhea or constipation. No hematemesis. No hematochezia. GENITOURINARY: No urgency. No frequency. No dysuria. No hematuria. No obstructive symptoms. No discharge. No pain. No significant abnormal bleeding. MUSCULOSKELETAL: No musculoskeletal pain; no joint swelling. NEUROLOGICAL: No headache. No neck pain. No syncope. No seizures. No dizziness. PSYCHIATRIC: Not anxious. No depression. No suicidal thoughts. No homicidal thoughts. SKIN: No rash. No lesions. No wounds. ENDOCRINE: No unexplained weight loss. No weight gain. HEMATOLOGIC/LYMPHATIC: No anemia. No purpura. No petechiae. No prolonged or excessive bleeding. No palpable lymph nodes. PHYSICAL EXAMINATION: GENERAL: The patient is in no distress. HEENT: Head normocephalic, atraumatic. Eyes: Extraocular muscles are intact. Pupils are equal, round and reactive to light and accommodation. Ears: No lesions. Nose appeared normal. Throat: No exudate or erythema. NECK: Supple. No JVD, no carotid bruit. No lymphadenopathy or thyromegaly. LUNGS: Clear to auscultation. Percussion note normal. Chest symmetrical. HEART: S1, S2, no S3. No murmurs. No cyanosis or clubbing. No ascites. Pulses: Dorsalis pedis and posterior tibial pulses +1 to +2 bilaterally. ABDOMEN: Soft. Nontender. Bowel sounds active. No CVA tenderness. No mass felt. EXTREMITIES: No edema. Full range of motion of all extremities, equal. NEUROLOGIC: No focal deficit. Cranial nerves II through XII are grossly intact. No headache. No double vision. SKIN: Not dry. Intact. Turgor - normal. LYMPHATIC: No palpable lymph nodes/no lymphedema. MUSCULOSKELETAL: Normal joints with no swelling. Muscle tone is normal. LABS: Liver functions are improving. PLAN: Continue all antibiotics. TIME SPENT: More than 35 minutes. Plan and coordination of the patient's care discussed in the presence of nurse. MIYA
--- NOTE | 2023-01-27 10:04 | PN ---
DATE OF SERVICE: 01/25/23 SUBJECTIVE: 78 year old white male hospitalized with acute renal failure. Patient's condition seems to be improving. His appetite seems to be improving. REVIEW OF SYSTEMS: CONSTITUTIONAL: No fever or chills. HEENT: Eyes: No visual changes. No eye pain. No eye discharge. ENT: No runny nose. No epistaxis. No sinus pain. No sore throat. No odynophagia. No congestion. RESPIRATORY: No cough, no congestion. No hemoptysis. No shortness of breath. CARDIOVASCULAR: No angina symptoms. No CHF symptoms. No atypical chest pain for CAD. No palpitations. No PND. No orthopnea. GASTROINTESTINAL: No abdominal pain. No nausea or vomiting. No diarrhea or constipation. No hematemesis. No hematochezia. GENITOURINARY: No urgency. No frequency. No dysuria. No hematuria. No obstructive symptoms. No discharge. No pain. No significant abnormal bleeding. MUSCULOSKELETAL: No musculoskeletal pain; no joint swelling. NEUROLOGICAL: No headache. No neck pain. No syncope. No seizures. No dizziness. PSYCHIATRIC: Not anxious. No depression. No suicidal thoughts. No homicidal thoughts. SKIN: No rash. No lesions. No wounds. ENDOCRINE: No unexplained weight loss. No weight gain. HEMATOLOGIC/LYMPHATIC: No anemia. No purpura. No petechiae. No prolonged or excessive bleeding. No palpable lymph nodes. PHYSICAL EXAMINATION: GENERAL: The patient is in no distress. VITAL SIGNS: Temperature 98.9, pulse 80, respiratory rate 16, blood pressure 130/80, pulse ox 95%. HEENT: Head normocephalic, atraumatic. Eyes: Extraocular muscles are intact. Pupils are equal, round and reactive to light and accommodation. Ears: No lesions. Nose appeared normal. Throat: No exudate or erythema. NECK: Supple. LUNGS: Decreased breath sounds. HEART: S1, S2, no S3. ABDOMEN: Soft. Bowel sounds active. EXTREMITIES: No edema. Full range of motion of all extremities, equal. NEUROLOGIC: No focal deficit. Cranial nerves II through XII are grossly intact. No headache. No double vision. SKIN: Not dry. Intact. Turgor - normal. LYMPHATIC: No palpable lymph nodes/no lymphedema. MUSCULOSKELETAL: Normal joints with no swelling. Muscle tone is normal. LABS: Creatinine 1.6 and BUN 27, better than what it was on admission. Hemoglobin 11.1, hematocrit 33, WBC 7,600, normal differential, potassium 3.6. AST of 94 and ALT of 162, improving. Platelet count will be followed. ASSESSMENT: Acute renal failure, seems to be resolving with improvement in kidney function. Patient's mental status seems to be stable. He is walking some. He wants to go home. TIME SPENT: More than 35 minutes. Plan and coordination of the patient's care discussed in the presence of nurse. MIYA
[2023-01-27] MEDS: SINGULAIR PO SCH (20:29)
[2023-01-28 06:09] VITALS: BP 148/81; RESP 16; TEMP 97.6
[2023-01-28] MEDS: PROTONIX PO SCH (08:37)
[2023-01-28] MEDS ORDERED: DECADRON IM SCH (09:00)
[2023-01-28] MEDS: OMNICEF PO SCH (09:10)
[2023-01-28] MEDS: COLACE PO SCH (09:11)
[2023-01-28] MEDS: DOXYCYCLINE HYCLATE PO SCH (09:11)
[2023-01-28] MEDS: NAMENDA PO SCH (09:11)
[2023-01-28] MEDS: K-DUR PO SCH (09:12)
[2023-01-28] MEDS: MEGACE PO SCH (09:12)
[2023-01-28] MEDS: KEPPRA PO SCH (09:12)
[2023-01-28] MEDS: FLOMAX PO SCH (09:13)
[2023-01-28] MEDS: NEURONTIN PO SCH (09:13)
[2023-01-28] MEDS: LEXAPRO PO SCH (09:13)
[2023-01-28] MEDS: FOLIC ACID PO SCH (09:14)
[2023-01-28] MEDS: MIRALAX PO SCH (09:15)
[2023-01-28] MEDS: NORCO 10-325 PO PRN (09:43)
--- NOTE | 2023-01-28 09:46 | PCM.PROG ---
Attending Provider: ATTENDING PROVIDER: Dr. JOSE ANGEL FRANZ MD This patient is seen with Alicia Moore, Nurse Practitioner. DATE OF SERVICE: 01/28/23 SUBJECTIVE: This 78 year old /WHITE M was hospitalized 01/15/23. Has been up in the room, still not eating very well. Labs are stable. Plt count 130. renal function is back to baseline . Liver enzymes are trending down. The patient is adamant about going home. Family refuses assisted. REVIEW OF SYSTEMS: CONSTITUTIONAL: No night sweats. No fatigue, malaise, lethargy. No fever or chills. Weakness. HEENT: Eyes: No visual changes. No eye pain. No eye discharge. ENT: No runny nose. No epistaxis. No sinus pain. No odynophagia. No congestion. RESPIRATORY: No cough, no congestion. No hemoptysis. No shortness of breath. CARDIOVASCULAR: No angina symptoms. No CHF symptoms. No atypical chest pain for CAD. No palpitations. No orthopnea.. GASTROINTESTINAL: No abdominal pain. No nausea or vomiting. No diarrhea or constipation. No hematemesis. No hematochezia. GENITOURINARY: No urgency. No frequency. No dysuria. No hematuria. No obstructive symptoms. No discharge. No pain. No significant abnormal bleeding. MUSCULOSKELETAL: No musculoskeletal pain; no joint swelling. NEUROLOGICAL: Awake, alert, intermittent confusion. No headache. No neck pain. No syncope. No seizures. No dizziness. PSYCHIATRIC: Not anxious. No depression. No suicidal thoughts. No homicidal thoughts. SKIN: No rash. No lesions. No wounds. ENDOCRINE: No unexplained weight loss. No weight gain. HEMATOLOGIC/LYMPHATIC: No anemia. No purpura. No petechiae. No prolonged or excessive bleeding. No palpable lymph nodes. PHYSICAL EXAMINATION: GENERAL: The patient is awake, alert and oriented to person, lying in bed in no distress. VITAL SIGNS: Temperature 97.6 F, Pulse 75, Respiratory Rate 16, BP 148/81, Pulse Ox 99% HEENT: Head normocephalic, atraumatic. Eyes: Extraocular muscles are intact. Pupils are equal, round and reactive to light and accommodation. Ears: No lesions. Nose appeared normal. Throat: No exudate or erythema. NECK: Supple. No JVD, no carotid bruit. No lymphadenopathy or thyromegaly. LUNGS: Diminished breath sounds. Clear to auscultation. Percussion note normal. Chest symmetrical. HEART: S1, S2, no S3. No murmurs. No cyanosis or clubbing. No ascites. Pulses: Dorsalis pedis and posterior tibial pulses +1 to +2 both sides. ABDOMEN: Soft. Non-tender. Bowel sounds active. No CVA tenderness. No mass felt. EXTREMITIES: No edema. Full range of motion of all extremities, equal. NEUROLOGIC: No focal deficit. Cranial nerves II through XII are grossly intact. No headache. No double vision. SKIN: Not dry. Intact. Turgor-normal. LYMPHATIC: No palpable lymph nodes/no lymphedema. MUSCULOSKELETAL: Normal joints with no swelling. Muscle tone is normal. LAB REVIEW: 01/27/23 04:53 01/27/23 04:53 ASSESSMENT: Please see below. 1. Renal azotemia, improved 2. dehydration, resolved 3. Thrombocytopenia, improving 4. Elevated liver enzymes, improving 5. Fever, resolved 6. Seizure like activity 7. Chronic kidney disease, stage 3 8. BPH 9. Acute prostatitis 10. Generalized weakness 11. Dementia PLAN: 1. Discharge home 2. Followup in the office next week 3. Keppra level 4.Doxycycline 100mg BID for 7 days 5. Omnicef 300mg BID for 7 days 6. Prednisone 10mg BID for 5 days 7. Discontinue Statin 8. Aspirin 81mg, discontinue Aspirin 325 9. Continue Lexapro 10 daily 10. Gabapentin reduced to 200mg TID 11. Continue Keppra 500mg TID 12.Megace 40mg BID 13. Continue Protonix 14.Discontinue Potassium 15. Continue Flomax at 0.4mg BID 16. The patient would benefit from Home Health for PT/OT and nursing 17. The patient due to extreme weakness and DJD of L spine the patient would greatly benefit from use of hospital bed. Plan and coordination of the patient's care discussed in the presence of Data Analytics Developer and nurse. SCRIBED BY: Mary Ann NATARAJAN scribed while in presence of service performed by Alicia Moore APRN on 01/28/23 (0806) Coding (1) Dysphagia: Status: Acute Code(s): R13.10 - Dysphagia, unspecified SNOMED Code(s): 74797706
--- NOTE | 2023-01-28 15:12 | PN ---
DATE OF SERVICE: 01/26/23 SUBJECTIVE: 78 year old white male hospitalized with acute renal failure. Patient's condition is improving. Patient's liver functions are improving. Creatinine now is 1.5, BUN 22. He has quite a bit of improvement. GFR has improved to 43 which was less than 20 before. AST/ALT has improved is 82 and 154 respectively. REVIEW OF SYSTEMS: CONSTITUTIONAL: No night sweats. No fatigue, malaise, lethargy. No fever or chills. HEENT: Eyes: No visual changes. No eye pain. No eye discharge. ENT: No runny nose. No epistaxis. No sinus pain. No sore throat. No odynophagia. No congestion. RESPIRATORY: No cough, no congestion. No hemoptysis. No shortness of breath. CARDIOVASCULAR: No chest pain. No palpitations. No PND. No orthopnea. GASTROINTESTINAL: No abdominal pain. No nausea or vomiting. No diarrhea or constipation. No hematemesis. No hematochezia. GENITOURINARY: No urgency. No frequency. No dysuria. No hematuria. No obstructive symptoms. No discharge. No pain. No significant abnormal bleeding. MUSCULOSKELETAL: No musculoskeletal pain; no joint swelling. NEUROLOGICAL: No headache. No neck pain. No syncope. No seizures. No dizziness. PSYCHIATRIC: Not anxious. No depression. No suicidal thoughts. No homicidal thoughts. SKIN: No rash. No lesions. No wounds. ENDOCRINE: No unexplained weight loss. No weight gain. HEMATOLOGIC/LYMPHATIC: No anemia. No purpura. No petechiae. No prolonged or excessive bleeding. No palpable lymph nodes. PHYSICAL EXAMINATION: GENERAL: The patient is feeling better, walking on his own. VITAL SIGNS: Temperature 97.7, pulse 80, respiratory rate 13, blood pressure 130/78, pulse ox 99%. HEENT: Head normocephalic, atraumatic. Eyes: Extraocular muscles are intact. Pupils are equal, round and reactive to light and accommodation. Ears: No lesions. Nose appeared normal. Throat: No exudate or erythema. NECK: Supple. LUNGS: Decreased breath sounds but clear. HEART: S1, S2, no S3. No murmurs. No cyanosis or clubbing. No ascites. Pulses: Dorsalis pedis and posterior tibial pulses +1 to +2 bilaterally. ABDOMEN: Soft. Bowel sounds active. EXTREMITIES: No edema. Full range of motion of all extremities, equal. NEUROLOGIC: No focal deficit. Cranial nerves II through XII are grossly intact. No headache. No double vision. SKIN: Not dry. Intact. Turgor - normal. LYMPHATIC: No palpable lymph nodes/no lymphedema. MUSCULOSKELETAL: Normal joints with no swelling. Muscle tone is normal. LABS: Hemoglobin 10.8, hematocrit 31, WBC 7,800, normal differential, creatinine 1.5, BUN 22, potassium 4.3. ASSESSMENT: 1. Acute renal failure seems to be improving 2. Acute prostatitis 3. UTI seems to be resolving 4. Chronic lung disease, feeling a lot better with it. PLAN: Change IV antibiotics to Rocephin, Doxycycline Condition: Stable TIME SPENT: More than 35 minutes. Plan and coordination of the patient's care discussed in the presence of nurse. MIYA
--- NOTE | 2023-01-28 15:21 | PN ---
DATE OF SERVICE: 01/27/23 SUBJECTIVE: 78 year old white male was hospitalized with acute renal failure. Patient's condition has improved. Patient's acute prostatitis and UTI seems to have resolved. He is afebrile and his appetite has been improving. REVIEW OF SYSTEMS: CONSTITUTIONAL: No night sweats. No fatigue, malaise, lethargy. No fever or chills. HEENT: Eyes: No visual changes. No eye pain. No eye discharge. ENT: No runny nose. No epistaxis. No sinus pain. No sore throat. No odynophagia. No congestion. RESPIRATORY: Mild shortness of breath on exertion. CARDIOVASCULAR: No chest pain. No palpitations. No PND. No orthopnea. GASTROINTESTINAL: No abdominal pain. No nausea or vomiting. No diarrhea or constipation. No hematemesis. No hematochezia. GENITOURINARY: Urgency incontinence. No dysuria. MUSCULOSKELETAL: No musculoskeletal pain; no joint swelling. NEUROLOGICAL: No headache. No neck pain. No syncope. No seizures. No dizziness. PSYCHIATRIC: Not anxious. No depression. No suicidal thoughts. No homicidal thoughts. SKIN: No rash. No lesions. No wounds. ENDOCRINE: No unexplained weight loss. No weight gain. HEMATOLOGIC/LYMPHATIC: No anemia. No purpura. No petechiae. No prolonged or excessive bleeding. No palpable lymph nodes. PHYSICAL EXAMINATION: GENERAL: The patient is able to walk on his own in the room. VITAL SIGNS: Temperature 97.9, pulse 88, respiratory rate 15, blood pressure 160/90, pulse ox 97%. HEENT: Head normocephalic, atraumatic. Eyes: Extraocular muscles are intact. Pupils are equal, round and reactive to light and accommodation. Ears: No lesions. Nose appeared normal. Throat: No exudate or erythema. NECK: Supple. LUNGS: Decreased breath sounds but clear. HEART: S1, S2, no S3. ABDOMEN: Soft. Bowel sounds active. EXTREMITIES: No edema. Full range of motion of all extremities, equal. NEUROLOGIC: No focal deficit. Cranial nerves II through XII are grossly intact. No headache. No double vision. SKIN: Not dry. Intact. Turgor - normal. LYMPHATIC: No palpable lymph nodes/no lymphedema. MUSCULOSKELETAL: Normal joints with no swelling. Muscle tone is normal. LABS: Hemoglobin 11.4, hematocrit 33, WBC 8,000, normal differential, creatinine 1.3, BUN 22, potassium 4.6, GFR has reached now to 15. AST is down to 69 from 82. ALT down to 147 from 154. Albumin, globulin and protein seems to be improving. No jaundice. ASSESSMENT: 1. Prostatitis has resolved. 2. Thrombocytopenia has resolved. PLAN: 1. Continue Omnicef, Doxycycline. 2. Continue to encourage patient to eat. 3. Continue steroids. Overall condition and mental status has improved. TIME SPENT: More than 35 minutes. Plan and coordination of the patient's care discussed in the presence of nurse. MIYA
--- NOTE | 2023-01-31 09:28 | RS.OTINEVL ---
Subjective Patient information Date of Evaluation: 01/16/23 Date of Arrival on Unit: 01/15/23 Admitted From:: Home Diagnosis: Pneumonia, dehydration PRECAUTIONS: Low BP , and unsteady gait. Usual Living Arrangement: With Spouse Living Arrangement Comments: lives with spouse and son lives with them Home Environment: House, Stairs (few) and Rail Medical History: COPD, Dementia, Diabetes and Cancer (sarcoma w lung mets, ) Medical History Comments:: prostatitis, CKD stage 3, LBP, BPH LATEX ALLERGY?: No Surgical History Comments:: surgery to remove cancer Medications: see chart Level of function Prior to this admission, the patient could do the following:: Independent Selfcare, Independent ADL's and Independent Ambulation Current Equipment Used at Home: Rolling walker, wheelchair Functional Mobility JOHNIE INDEX SCORE: . Additional Treatment Performed Time with patient Length of Evaluation: 20 Total treatment time: 22 Assessment Patient's Goal(s): To go home Short Term Goals Goals GOAL 1: Pt to increase LUE to 4+/5. Goal to be met by: 01/21/23 Progress towards goal: Not Met GOAL 2: Pt to increase RUE AROM 50%. Goal to be met by: 01/21/23 Progress towards goal: Not Met GOAL 3: Pt to increase to CGA with sink level ADLS. Goal to be met by: 01/23/23 Progress towards goal: Not Met GOAL 4: Pt to increase dyn. std. bal. to F+. 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 Goal to be met by: 01/23/23 GOAL 2: Pt to increase dyn. std. bal. to G-. Goal to be met by: 01/23/23 GOAL 3: Pt to be (I) with sink level ADLS. Goal to be met by: 01/23/23 Plan Treatment Diagnosis (ICD 10 Codes): dehydration Has the Physician been added for Co-signature?: No
== END 2023-01-28 14:50 | disposition home health service (06) | DRG 683 ==
LOC: SCU 14:20
PROVIDERS: ADMIT Internal Medicine; ATTEND Internal Medicine